=== PATIENT | female | born 1960 | race Caucasian/White ===

== ENCOUNTER → 2018-02-11 09:22 | Outpatient (CLI) | payer OTHER, SELFPAY ==
--- NOTE | 2018-02-11 09:46 | DI.MG.S_ITS ---
Patient Name: REJI MADDOX date: 1960 Sex: F Attending Physician: Malik Indications: Date: 02/11/2018 09:41 At the request of: CONNOR GUILLAUME Procedure: MM screening mammo BI BILATERAL DIGITAL SCREENING MAMMOGRAM 3D/2D WITH CAD: 02/11/2018 CLINICAL: Routine screening. Comparison is made to exams dated: 02/04/2017 mammogram, 12/20/2015 mammogram, and 12/05/2014 mammogram - [facility]. The tissue of both breasts is heterogeneously dense. This may lower the sensitivity of mammography. Current study was also evaluated with a Computer Aided Detection (CAD) system. No significant masses, calcifications, or other findings are seen in either breast. There has been no significant interval change. IMPRESSION: NEGATIVE There is no mammographic evidence of malignancy. A 1 year screening mammogram is recommended. This exam was interpreted at Station ID: [id number]. NOTE: For mammograms, a report in lay terms will be sent to the patient. Approximately 15% of breast malignancies will not be visualized mammographically. In the management of a palpable breast mass, a negative mammogram must not discourage biopsy of a clinically suspicious lesion. Electronically Signed By: Sam camara/jannette:02/11/2018 21:06:15 letter sent: Normal Exam ACR BI-RADS Category 1: Negative [id number]
== END ==
PROVIDERS: PCP Family Medicine; Visit Provider Family Medicine
DX: Z12.31 Encounter for screening mammogram for malignant neoplasm of breast (principal)
CPT/HCPCS: 77063; 77067

== ENCOUNTER → 2018-07-15 09:22 | Outpatient (CLI) | payer OTHER, SELFPAY ==
--- NOTE | 2018-07-15 09:23 | DI.RAD.S_ITS ---
PROCEDURE: XR SHOULDER RT MIN 2V INDICATIONS: RIGHT SHOULDER PAIN TECHNIQUE: 3 views of the shoulder were acquired. COMPARISON: None. FINDINGS: Bones: Mild to moderate right shoulder joint osteoarthritis and glenohumeral joint osteoarthritis is seen. No fractures or dislocations. No suspicious bony lesions. Visualized ribs appear intact. Soft tissues: No suspicious soft tissue calcifications. IMPRESSION: Mild to moderate right shoulder joint osteoarthritis. No fracture or dislocation. Dictated by: Vincent Christopher M.D. on 07/15/2018 at 10:31 Approved by: Vincent Christopher M.D. on 07/15/2018 at 10:33
== END ==
PROVIDERS: PCP Family Medicine; Visit Provider Family Medicine
DX: M25.511 Pain in right shoulder (principal); M19.011 Primary osteoarthritis, right shoulder
CPT/HCPCS: 73030

== ENCOUNTER → 2018-09-17 09:26 | Outpatient (CLI) | payer OTHER, SELFPAY ==
[2018-09-17 09:48] LABS: Add Manual Diff / Slide Review NO; Basophils Absolute Auto 0 /uL (0-100); Basophils Percent Auto 0.7 % (0-2); Eosinophils Absolute Auto 200 /uL (0-450); Eosinophils Percent Auto 3.3 % (2-4); Hematocrit 44.6 % (36-46); Hemoglobin 14.8 g/dL (12.0-16.0); Lymphocytes Absolute Auto 1600 /uL (1100-4500); Lymphocytes Percent Auto 29.7 % (25-40); Mean Corpuscular HGB Conc 33.1 % (30-36); Mean Corpuscular Volume 93.5 fL (80-100); Monocytes Absolute Auto 400 /uL (0-900); Monocytes Percent Auto 7.4 % (3-14); Neutrophils Absolute Auto 3200 /uL (1500-7000); Neutrophils Percent Auto 58.9 % (50-75); Platelet Count 178 X10^3/uL (150-400); Red Blood Cell Count 4.77 X10^6/uL (4.0-5.2); Red Cell Distribution Width 13.2 % (11.6-14.8); White Blood Cell Count 5.4 X10^3/uL (4.5-11.0)
[2018-09-17 10:14] LABS: Alanine Aminotransferase 37 IU/L (9-52); Albumin 4.2 g/dL (3.5-5.0); Albumin Globulin Ratio 1.5 (1.0-2.8); Alkaline Phosphatase 46 U/L (38-126); Aspartate Aminotransferase 25 IU/L (14-36); BUN Creatinine Ratio 26.3 (6-22); Bilirubin Total 0.8 mg/dL (0.2-1.3); Blood Urea Nitrogen 21 mg/dL (7-17); Carbon Dioxide 31 mmol/L (22-32); Chloride 103 mmol/L (98-107); Cholesterol 144 mg/dL (140-199); Estimated Glomerular Filt Rate > 60.0 mL/min (>60); Globulin 2.8 g/dL (1.7-4.1); Glucose 88 mg/dL (70-100); HDL Cholesterol 41 mg/dL (40-60); HEMOLYSIS < 15 (0-50); LDL Cholesterol Calculated 87 mg/dL (<100); Potassium 4.2 mmol/L (3.4-5.1); Sodium 141 mmol/L (137-145); Triglycerides 82 mg/dL (35-150)
[2018-09-17 10:45] LABS: Thyroid Stimulating Hormone 2.32 uIU/mL (0.47-4.68)
== END ==
PROVIDERS: PCP Family Medicine; Visit Provider Family Medicine
DX: E78.49 Other hyperlipidemia (principal); R89.9 Unspecified abnormal finding in specimens from other organs, systems and tissues; Z13.0 Encounter for screening for diseases of the blood and blood-forming organs and certain disorders involving the immune mechanism; Z13.29 Encounter for screening for other suspected endocrine disorder
CPT/HCPCS: 36415; 80053; 80061; 84443; 85025

== ENCOUNTER 2018-11-17 09:00 | Outpatient (RCR) | payer OTHER, SELFPAY ==
--- NOTE | 2018-06-30 16:51 | PT.OIE ---
Current Diagnoses Other enthesopathies, not elsewhere classified (06/30/18) Past Medical History (Last Updated 06/01/18 @ 14:59 by Marisela Moore) Fibroids (Chronic) Plantar warts (Chronic ~1976) Chicken pox (Resolved) Measles (Resolved) Past Surgical History (Last Updated 06/01/18 @ 14:59 by Marisela Moore) Anesthesia (Resolved) Status post hysterectomy (~2011) Status post laparoscopy (~2009) Provider Visit Care Team Role Provider Type Chris Gan MD Primary Care Provider Physician Specialty: [facility] Address: [address] [place] [address] Email: [email or web address] DENNY Camejo Attending Provider Advanced Pot Puller Specialty: [facility] Address: [address] [place] [address] Email: [email or web address] Physical Therapy Initial Evaluation PT-OP-A Visit Information Start: 06/27/18 17:30 Freq: Status: Active Protocol: Document 06/30/18 15:46 LRN (Rec: 06/30/18 16:51 LRN [id number]) Out-Patient Physical Therapy Visit Information Visit Information Visit Type Initial Evaluation Visit Start Time 09:50 Visit Stop Time 10:40 Total Visit Minutes 50 Visit Number 1 Number of INDOOR LANDSCAPER/GARDENER Visits 0 Evaluation Information Evaluation Date 06/30/18 PT-OP-B Current Condition Start: 06/27/18 17:30 Freq: Status: Active Protocol: Document 06/30/18 15:46 LRN (Rec: 06/30/18 16:51 LRN [id number]) Current Condition History of Current Condition Onset Date 04/29/2018 Current Complaints Tightness>Pain in R posterior upper arm. Treatment Goals Patient/Caregiver Goals Pt goal is to eliminate the pain, regain full motion of the R arm and shoulder. Prior Functional Status Baseline Function- ADL's Independent Baseline Function- Mobility Independent Baseline Function- Recreation/Hobbies Exercises at home with weights and aerobic exercise. Current Functional Impairments (Reported) Functional Limitations- ADL's Difficulty lifting overhead. Difficulty reaching behind the back for dressing and bathing . Functional Limitations- Recreation/ Stopped exercising with Hobbies weights, has continued with aerobic exercise. Personal Factors Other Personal Factors That May Effect None Therapy/Recovery PT-OP-C Subjective Start: 06/27/18 17:30 Freq: Status: Active Protocol: Document 06/30/18 15:46 LRN (Rec: 06/30/18 16:51 LRN [id number]) Patient Questionnaires Quick Dash- Upper Extremity Quick Dash UE Score 26 Quick Dash UE Impairment 20 to 39% Impaired (Score 20- 39) PT-OP-F Manual Assessment Start: 06/27/18 17:30 Freq: Status: Active Protocol: Document 06/30/18 15:46 LRN (Rec: 06/30/18 16:51 LRN [id number]) Manual Assessments Soft Tissue Assessment Soft Tissue Mobility Assessment R posterior brachium: tender with elbow in full extension. Joint Mobility Assessment Joint Mobility Assessment Shoulder and Elbow is normal. PT-OP-H Neuro Start: 06/27/18 17:30 Freq: Status: Active Protocol: Document 06/30/18 15:46 LRN (Rec: 06/30/18 16:51 LRN [id number]) Sensation Evaluation Gross Sensation Gross Sensation WNL Deep Tendon Reflex & Clonus Assessment Deep Tendon Reflex Bilateral Brachioradialis Deep Tendon Reflex 2+ Normal Bilateral Tricep Deep Tendon Reflex 2+ Normal Bilateral Bicep Deep Tendon Reflex 2+ Normal PT-OP-J Posture/Palpation/Skin Start: 06/27/18 17:30 Freq: Status: Active Protocol: Document 06/30/18 15:46 LRN (Rec: 06/30/18 16:51 LRN [id number]) Posture Evaluation Position Standing Scapula Posture (R) Rotated Up Comments Posture Comments Pt R shoulder is lower than L. Palpation Assessment Location Two Palpation Location R Upper Trapezius Palpation Findings Soft Tissue Tightness Muscle Guarding Tenderness One Palpation Location R shoulder & Elbow Palpation Details WNL PT-OP-K Range of Motion Start: 06/27/18 17:30 Freq: Status: Active Protocol: Document 06/30/18 15:46 LRN (Rec: 06/30/18 16:51 LRN [id number]) Cervical Spine Range of Motion Cervical Spine Active Degrees Testing Position Sitting Extension 40 Rotation Left 60 Rotation Right 60 Lateral Flexion Left 17 Lateral Flexion Right 18 ROM Limitations Soft Tissue Tightness Shoulder Goniometric Range of Motion Shoulder Measured in Degrees Left Passive Testing Position Supine Flexion 158 Extension 52 Abduction 100 External Rotation at 90 degrees 90 Abduction External Rotation at 45 degrees 80 Abduction Internal Rotation 80 Internal Rotation Behind Back (text) T3 in sitting Right Passive Testing Position Supine Flexion 120 Extension 30 Abduction 65 External Rotation at 90 degrees 30 Abduction Internal Rotation 50 Right Active Testing Position Sitting Flexion 75 Abduction 60 External Rotation at 0 degrees Abduction 32 Internal Rotation Behind Back (text) R Lateral Hip PT-OP-L Special Tests Start: 06/27/18 17:30 Freq: Status: Active Protocol: Document 06/30/18 15:46 LRN (Rec: 06/30/18 16:51 LRN [id number]) Special Tests Other Special Tests Special Tests Cervical: Cervical Compression and Distraction: Negative. Foraminal Compression: Negative bilaterally. Shoulder: Impingement: Positive on Right with posterior brachium pain. PT-OP-M Strength Start: 06/27/18 17:30 Freq: Status: Active Protocol: Document 06/30/18 15:46 LRN (Rec: 06/30/18 16:51 LRN [id number]) Shoulder Strength Shoulder Manual Muscle Testing Right Comments Generally 2/5 due to pain. Left Reason Not Measured WFL Elbow/Forearm Strength Elbow and Forearm Manual Muscle Testing Right Reason Not Measured WFL Comments Generally 5/5 with shoulder at 90 deg's flexion. PT-OP-Q Treatments Start: 06/27/18 17:30 Freq: Status: Active Protocol: Document 06/30/18 15:46 LRN (Rec: 06/30/18 16:51 LRN [id number]) Self-Care/Home Management Treatment Education Patient Education Home Exercise Program Activities Self-Care/Home Management Activities I/S pt in self Triceps stretch in closed chain with hand supported and increased use of cryotherapy. PT-OP-R Modalities Start: 06/27/18 17:30 Freq: Status: Active Protocol: Document 06/30/18 15:46 LRN (Rec: 06/30/18 16:51 LRN [id number]) Hot Pack/Cold Pack Treatment Cold Pack Location R Triceps Patient Position Hooklying Treatment Duration (minutes) 10 Patient Tolerance Good PT-OP-T Assessment and Plan Start: 06/27/18 17:30 Freq: Status: Active Protocol: Document 06/30/18 15:46 LRN (Rec: 06/30/18 16:51 LRN [id number]) Physical Therapy Assessment Rehab Potential Rehabilitation Potential Good Evaluation Complexity Number of Personal Factors/Comorbidities 0 Number of Body Systems Impaired 3 Clinical Presentation at Evaluation Evolving Impairments Impairments Functional Activities Pain ROM Strength Other Impairments ROM and strength impairment is with L shoulder. Goals Three Impairment Decreased R shoulder IR AROM/ PROM due to pain Short Term Goal (STG) Pt will demonstrated functional passive ROM of the R shoulder for reaching behind the back. STG Duration 07/13/18 Intermediate Goal (LTG) Pt will be able to put on her belt and tuck her shirt in the back without pain. LTG Duration 08/27/17 Two Impairment Decreased R active shoulder mobility due to R posterior brachium pain. Intermediate Goal (LTG) Pt will be able to reach overhead with mild discomfort to return to a light exercise home program. One Impairment Lacks appropriate self care HEP. Intermediate Goal (LTG) Pt will be independent in a HEP. LTG Duration 08/27/17 Assessment Summary Assessment Pt presents with odd symptoms of R posterior, upper arm discomfort/pain that is only reproduced with shoulder flexion, or with elbow ext while hand is in pronation. Further testing would be recommended (MRI with contrast ) if pt fails to respond to physical therapy treatments. She presents with R triceps pain/stiffness/tightness and limited functional ability for reaching overhead and behind the back. R Shoulder movement appears to elicit posterior brachial pain. She does not have pain with resisted elbow extension or flexion. She has mobility limitations consistent with R shoulder impingement, but pain is not in the typical location (no shoulder pain). Her neck has been cleared of involvement, although UE neural tension needs to be assessed. Further assessment of scapular dysfunction possibly effecting shoulder mobility and therefore R arm pain. Physical Therapy Plan Frequency and Duration Frequency of Treatment 2x/Week Plan of Care Start Date 06/30/18 Plan of Care End Date 09/01/18 Therapeutic Interventions Therapeutic Interventions Home Exercise Program Manual Therapy Patient/Caregiver Education Self-Care/Home Management Soft Tissue Mobilization Taping Therapeutic Exercises Modalities Cold Pack/Ice Massage Hot Packs Next Visit Focus/Plan Next Note Type Treatment Note Next Visit Plan Assess R Scapulohumeral rhythm and scapula mobility, ACJ, tuning fork check of brachium long bone. STM/MFR to triceps at attachment onto brachium, Stretch into shoulder flex and elbow ext with forearm pronation & scapular stabilization. Hold modalities other than cryotherapy and MH until determination if further testing is needed to identify source of pain complaints if physical therapy treatments are not helpful.
--- NOTE | 2018-06-30 16:52 | PT.OPPOC ---
Current Diagnoses Other enthesopathies, not elsewhere classified (06/30/18) Provider Visit Care Team Role Provider Type Chris Gan MD Primary Care Provider Physician Specialty: [facility] Practice Address: [address] [place] [address], [id number] Email: [email or web address] DENNY Camejo Attending Provider Advanced Observer Gravity Prospecting Specialty: [facility] Practice Address: [address] [place] [address], [id number] Email: [email or web address] Plan Of Care PT-OP-T Assessment and Plan Start: 06/27/18 17:30 Freq: Status: Active Protocol: Document 06/30/18 15:46 LRN (Rec: 06/30/18 16:51 LRN [id number]) Physical Therapy Assessment Rehab Potential Rehabilitation Potential Good Evaluation Complexity Number of Personal Factors/Comorbidities 0 Number of Body Systems Impaired 3 Clinical Presentation at Evaluation Evolving Impairments Impairments Functional Activities Pain ROM Strength Other Impairments ROM and strength impairment is with L shoulder. Goals Three Impairment Decreased R shoulder IR AROM/ PROM due to pain Short Term Goal (STG) Pt will demonstrated functional passive ROM of the R shoulder for reaching behind the back. STG Duration 07/13/18 Intermediate Goal (LTG) Pt will be able to put on her belt and tuck her shirt in the back without pain. LTG Duration 08/27/17 Two Impairment Decreased R active shoulder mobility due to R posterior brachium pain. Conference Services Coordinator Goal (LTG) Pt will be able to reach overhead with mild discomfort to return to a light exercise home program. One Impairment Lacks appropriate self care HEP. Conference Services Coordinator Goal (LTG) Pt will be independent in a HEP. LTG Duration 08/27/17 Assessment Summary Assessment Pt presents with odd symptoms of R posterior, upper arm discomfort/pain that is only reproduced with shoulder flexion, or with elbow ext while hand is in pronation. Further testing would be recommended (MRI with contrast ) if pt fails to respond to physical therapy treatments. She presents with R triceps pain/stiffness/tightness and limited functional ability for reaching overhead and behind the back. R Shoulder movement appears to elicit posterior brachial pain. She does not have pain with resisted elbow extension or flexion. She has mobility limitations consistent with R shoulder impingement, but pain is not in the typical location (no shoulder pain). Her neck has been cleared of involvement, although UE neural tension needs to be assessed. Further assessment of scapular dysfunction possibly effecting shoulder mobility and therefore R arm pain. Physical Therapy Plan Frequency and Duration Frequency of Treatment 2x/Week Plan of Care Start Date 06/30/18 Plan of Care End Date 09/01/18 Therapeutic Interventions Therapeutic Interventions Home Exercise Program Manual Therapy Patient/Caregiver Education Self-Care/Home Management Soft Tissue Mobilization Taping Therapeutic Exercises Modalities Cold Pack/Ice Massage Hot Packs Next Visit Focus/Plan Next Note Type Treatment Note Next Visit Plan Assess R Scapulohumeral rhythm and scapula mobility, ACJ, tuning fork check of brachium long bone. STM/MFR to triceps at attachment onto brachium, Stretch into shoulder flex and elbow ext with forearm pronation & scapular stabilization. Hold modalities other than cryotherapy and MH until determination if further testing is needed to identify source of pain complaints if physical therapy treatments are not helpful. Plan of Care Dates Plan of Care Start Date 06/30/18 Plan of Care End Date 09/01/18 Please Sign and Return: I have reviewed this Plan of Care and certify that the skilled therapy services above are required to meet the patient?s needs. Physician Signature Date Printed Name and Credentials Clinical Instructor Signature Printed Name and Credentials
--- NOTE | 2018-07-03 14:04 | PT.OTN ---
Current Diagnoses Other enthesopathies, not elsewhere classified (07/03/18) Physical Therapy Treatment Note PT-OP-A Visit Information Start: 06/27/18 17:30 Freq: Status: Active Protocol: Document 07/03/18 09:48 LRN (Rec: 07/03/18 10:32 LRN [id number]) Out-Patient Physical Therapy Visit Information Visit Information Visit Type Treatment Note Visit Start Time 09:48 Visit Stop Time 10:32 Total Visit Minutes 54 Visit Number 2 Number of SECURITY SERVICES SPECIALIST Visits 0 Evaluation Information Evaluation Date 06/30/18 PT-OP-B Current Condition Start: 06/27/18 17:30 Freq: Status: Active Protocol: Document 06/30/18 15:46 LRN (Rec: 06/30/18 16:51 LRN [id number]) Current Condition History of Current Condition Onset Date 04/29/2018 Current Complaints Tightness>Pain in R posterior upper arm. Treatment Goals Patient/Caregiver Goals Pt goal is to eliminate the pain, regain full motion of the R arm and shoulder. Prior Functional Status Baseline Function- ADL's Independent Baseline Function- Mobility Independent Baseline Function- Recreation/Hobbies Exercises at home with weights and aerobic exercise. Current Functional Impairments (Reported) Functional Limitations- ADL's Difficulty lifting overhead. Difficulty reaching behind the back for dressing and bathing . Functional Limitations- Recreation/ Stopped exercising with Hobbies weights, has continued with aerobic exercise. Personal Factors Other Personal Factors That May Effect None Therapy/Recovery PT-OP-C Subjective Start: 06/27/18 17:30 Freq: Status: Active Protocol: Document 06/30/18 15:46 LRN (Rec: 06/30/18 16:51 LRN [id number]) Patient Questionnaires Quick Dash- Upper Extremity Quick Dash UE Score 26 Quick Dash UE Impairment 20 to 39% Impaired (Score 20- 39) PT-OP-F Manual Assessment Start: 06/27/18 17:30 Freq: Status: Active Protocol: Document 06/30/18 15:46 LRN (Rec: 06/30/18 16:51 LRN [id number]) Manual Assessments Soft Tissue Assessment Soft Tissue Mobility Assessment R posterior brachium: tender with elbow in full extension. Joint Mobility Assessment Joint Mobility Assessment Shoulder and Elbow is normal. PT-OP-H Neuro Start: 06/27/18 17:30 Freq: Status: Active Protocol: Document 06/30/18 15:46 LRN (Rec: 06/30/18 16:51 LRN [id number]) Sensation Evaluation Gross Sensation Gross Sensation WNL Deep Tendon Reflex & Clonus Assessment Deep Tendon Reflex Bilateral Brachioradialis Deep Tendon Reflex 2+ Normal Bilateral Tricep Deep Tendon Reflex 2+ Normal Bilateral Bicep Deep Tendon Reflex 2+ Normal PT-OP-J Posture/Palpation/Skin Start: 06/27/18 17:30 Freq: Status: Active Protocol: Document 06/30/18 15:46 LRN (Rec: 06/30/18 16:51 LRN [id number]) Posture Evaluation Position Standing Scapula Posture (R) Rotated Up Comments Posture Comments Pt R shoulder is lower than L. Palpation Assessment Location Two Palpation Location R Upper Trapezius Palpation Findings Soft Tissue Tightness Muscle Guarding Tenderness One Palpation Location R shoulder & Elbow Palpation Details WNL PT-OP-K Range of Motion Start: 06/27/18 17:30 Freq: Status: Active Protocol: Document 06/30/18 15:46 LRN (Rec: 06/30/18 16:51 LRN [id number]) Cervical Spine Range of Motion Cervical Spine Active Degrees Testing Position Sitting Extension 40 Rotation Left 60 Rotation Right 60 Lateral Flexion Left 17 Lateral Flexion Right 18 ROM Limitations Soft Tissue Tightness Shoulder Goniometric Range of Motion Shoulder Measured in Degrees Left Passive Testing Position Supine Flexion 158 Extension 52 Abduction 100 External Rotation at 90 degrees 90 Abduction External Rotation at 45 degrees 80 Abduction Internal Rotation 80 Internal Rotation Behind Back (text) T3 in sitting Right Passive Testing Position Supine Flexion 120 Extension 30 Abduction 65 External Rotation at 90 degrees 30 Abduction Internal Rotation 50 Right Active Testing Position Sitting Flexion 75 Abduction 60 External Rotation at 0 degrees Abduction 32 Internal Rotation Behind Back (text) R Lateral Hip PT-OP-L Special Tests Start: 06/27/18 17:30 Freq: Status: Active Protocol: Document 06/30/18 15:46 LRN (Rec: 06/30/18 16:51 LRN [id number]) Special Tests Other Special Tests Special Tests Cervical: Cervical Compression and Distraction: Negative. Foraminal Compression: Negative bilaterally. Shoulder: Impingement: Positive on Right with posterior brachium pain. PT-OP-M Strength Start: 06/27/18 17:30 Freq: Status: Active Protocol: Document 06/30/18 15:46 LRN (Rec: 06/30/18 16:51 LRN [id number]) Shoulder Strength Shoulder Manual Muscle Testing Right Comments Generally 2/5 due to pain. Left Reason Not Measured WFL Elbow/Forearm Strength Elbow and Forearm Manual Muscle Testing Right Reason Not Measured WFL Comments Generally 5/5 with shoulder at 90 deg's flexion. PT-OP-Q Treatments Start: 06/27/18 17:30 Freq: Status: Active Protocol: Document 07/03/18 09:48 LRN (Rec: 07/03/18 10:32 LRN [id number]) Therapeutic Exercises Supine Exercises UE neural glide Supine Exercise Name R arm Ulnar & Median nerve [place] Side right Reps/Minutes 8' Comments Extra time taken for training. Anterior pressure to R Humeral Head Standing Exercises Shoulder drop Standing Exercise Name Lat Dorsi/Lower Trap strengthening Side bilateral Resistance Manual Reps/Minutes 7' Median N. [place] Standing Exercise Name Median n. glide Side right Reps/Minutes 5' Comments Extra time taken for training. Manual Therapy Treatment Soft Tissue Mobilization STM Body Location R Biceps and Triceps attachment at Brachium Mobilization Type Cross-Friction Strumming Sustained Pressure Intensity/Depth Moderate Body Position Supine Comments Tenderness present Joint Mobilizations R UE Joint GHJ Direction Inferior, Posterior Grade I Body Position Supine Reps/Duration 3' PT-OP-R Modalities Start: 06/27/18 17:30 Freq: Status: Active Protocol: Document 07/03/18 09:48 LRN (Rec: 07/03/18 10:32 LRN [id number]) Hot Pack/Cold Pack Treatment Hot Pack Location Neck & R arm Patient Position Supine Treatment Duration (minutes) 10 Patient Tolerance Good PT-OP-T Assessment and Plan Start: 06/27/18 17:30 Freq: Status: Active Protocol: Document 07/03/18 09:48 LRN (Rec: 07/03/18 10:32 LRN [id number]) Physical Therapy Assessment Assessment Summary Assessment + for Ulnar and Median nerve tension. She has RUE neural tension and decreased R GHJ mobility resulting in some symptoms of impingement. She has decreased mobility with GHJ inferior & posterior, mildly with anterior glide. Pt demonstrates poor R scapulohumeral rhythm. Physical Therapy Plan Next Visit Focus/Plan Next Note Type Treatment Note Next Visit Plan Assess R Scapula & ACJ mobility, tuning fork check of brachium long bone. Review HEP (neural stretch and scapular depression). Issue HEP of scapular depression and progress other scapular stab ex's. Stretch into shoulder flex and elbow ext with forearm pronation & scapular stabilization. Hold modalities other than cryotherapy and MH until determination if further testing is needed to identify source of pain complaints if physical therapy treatments are not helpful.
--- NOTE | 2018-07-06 13:20 | PT.OTN ---
Current Diagnoses Other enthesopathies, not elsewhere classified (07/06/18) Physical Therapy Treatment Note PT-OP-A Visit Information Start: 06/27/18 17:30 Freq: Status: Active Protocol: Document 07/06/18 09:53 LRN (Rec: 07/06/18 10:33 LRN [id number]) Out-Patient Physical Therapy Visit Information Visit Information Visit Type Treatment Note Visit Start Time 09:53 Visit Stop Time 10:43 Total Visit Minutes 50 Visit Number 3 Number of LUSTERER Visits 0 Evaluation Information Evaluation Date 06/30/18 PT-OP-B Current Condition Start: 06/27/18 17:30 Freq: Status: Active Protocol: Document 06/30/18 15:46 LRN (Rec: 06/30/18 16:51 LRN [id number]) Current Condition History of Current Condition Onset Date 04/29/2018 Current Complaints Tightness>Pain in R posterior upper arm. Treatment Goals Patient/Caregiver Goals Pt goal is to eliminate the pain, regain full motion of the R arm and shoulder. Prior Functional Status Baseline Function- ADL's Independent Baseline Function- Mobility Independent Baseline Function- Recreation/Hobbies Exercises at home with weights and aerobic exercise. Current Functional Impairments (Reported) Functional Limitations- ADL's Difficulty lifting overhead. Difficulty reaching behind the back for dressing and bathing . Functional Limitations- Recreation/ Stopped exercising with Hobbies weights, has continued with aerobic exercise. Personal Factors Other Personal Factors That May Effect None Therapy/Recovery PT-OP-C Subjective Start: 06/27/18 17:30 Freq: Status: Active Protocol: Document 07/06/18 09:53 LRN (Rec: 07/06/18 10:33 LRN [id number]) OP-PT Subjective Patient Comments Patient Comments States last treatment was helpful. Not as painful after treatement. PT-OP-F Manual Assessment Start: 06/27/18 17:30 Freq: Status: Active Protocol: Document 06/30/18 15:46 LRN (Rec: 06/30/18 16:51 LRN [id number]) Manual Assessments Soft Tissue Assessment Soft Tissue Mobility Assessment R posterior brachium: tender with elbow in full extension. Joint Mobility Assessment Joint Mobility Assessment Shoulder and Elbow is normal. PT-OP-H Neuro Start: 06/27/18 17:30 Freq: Status: Active Protocol: Document 06/30/18 15:46 LRN (Rec: 06/30/18 16:51 LRN [id number]) Sensation Evaluation Gross Sensation Gross Sensation WNL Deep Tendon Reflex & Clonus Assessment Deep Tendon Reflex Bilateral Brachioradialis Deep Tendon Reflex 2+ Normal Bilateral Tricep Deep Tendon Reflex 2+ Normal Bilateral Bicep Deep Tendon Reflex 2+ Normal PT-OP-J Posture/Palpation/Skin Start: 06/27/18 17:30 Freq: Status: Active Protocol: Document 06/30/18 15:46 LRN (Rec: 06/30/18 16:51 LRN [id number]) Posture Evaluation Position Standing Scapula Posture (R) Rotated Up Comments Posture Comments Pt R shoulder is lower than L. Palpation Assessment Location Two Palpation Location R Upper Trapezius Palpation Findings Soft Tissue Tightness Muscle Guarding Tenderness One Palpation Location R shoulder & Elbow Palpation Details WNL PT-OP-K Range of Motion Start: 06/27/18 17:30 Freq: Status: Active Protocol: Document 06/30/18 15:46 LRN (Rec: 06/30/18 16:51 LRN [id number]) Cervical Spine Range of Motion Cervical Spine Active Degrees Testing Position Sitting Extension 40 Rotation Left 60 Rotation Right 60 Lateral Flexion Left 17 Lateral Flexion Right 18 ROM Limitations Soft Tissue Tightness Shoulder Goniometric Range of Motion Shoulder Measured in Degrees Left Passive Testing Position Supine Flexion 158 Extension 52 Abduction 100 External Rotation at 90 degrees 90 Abduction External Rotation at 45 degrees 80 Abduction Internal Rotation 80 Internal Rotation Behind Back (text) T3 in sitting Right Passive Testing Position Supine Flexion 120 Extension 30 Abduction 65 External Rotation at 90 degrees 30 Abduction Internal Rotation 50 Right Active Testing Position Sitting Flexion 75 Abduction 60 External Rotation at 0 degrees Abduction 32 Internal Rotation Behind Back (text) R Lateral Hip PT-OP-L Special Tests Start: 06/27/18 17:30 Freq: Status: Active Protocol: Document 06/30/18 15:46 LRN (Rec: 06/30/18 16:51 LRN [id number]) Special Tests Other Special Tests Special Tests Cervical: Cervical Compression and Distraction: Negative. Foraminal Compression: Negative bilaterally. Shoulder: Impingement: Positive on Right with posterior brachium pain. PT-OP-M Strength Start: 06/27/18 17:30 Freq: Status: Active Protocol: Document 06/30/18 15:46 LRN (Rec: 06/30/18 16:51 LRN [id number]) Shoulder Strength Shoulder Manual Muscle Testing Right Comments Generally 2/5 due to pain. Left Reason Not Measured WFL Elbow/Forearm Strength Elbow and Forearm Manual Muscle Testing Right Reason Not Measured WFL Comments Generally 5/5 with shoulder at 90 deg's flexion. PT-OP-Q Treatments Start: 06/27/18 17:30 Freq: Status: Active Protocol: Document 07/06/18 09:53 LRN (Rec: 07/06/18 13:18 LRN [id number]) Therapeutic Exercises Supine Exercises UE neural glide Supine Exercise Name R arm Ulnar & Median nerve Powell Side right Reps/Minutes 8' Comments Extra time taken for training. Anterior pressure to R Humeral Head Standing Exercises Shoulder protraction with Rhomboid stretch Standing Exercise Name R Scapular protraction with hands on wall Side bilateral Rhomboid stretch Standing Exercise Name R arm across chest (low position) & Doorway both hands Side right Reps/Minutes 3' Comments Tried self different stretches to get appropriate stretch Median N. Powell Standing Exercise Name Median n. glide Side right Reps/Minutes 3' Comments Extra time taken for training. Manual Therapy Treatment Soft Tissue Mobilization STM Body Location R UT/[place] Posterior Mobilization Type Myofascial Release Strumming Body Position Supine Comments Sidelie for L Scapular depression MFR. Joint Mobilizations Scapula Joint R Scapulae Direction Distraction Body Position Sidelying Reps/Duration 3 R UE Joint GHJ Direction Inferior, Posterior Grade I Body Position Supine Reps/Duration 3' Self-Care/Home Management Treatment Activities Self-Care/Home Management Activities I/S pt in Rhomboid self stretch and scapular protraction. PT-OP-R Modalities Start: 06/27/18 17:30 Freq: Status: Active Protocol: Document 07/06/18 09:53 LRN (Rec: 07/06/18 10:33 LRN [id number]) Hot Pack/Cold Pack Treatment Hot Pack Location Neck & R arm Patient Position Supine Treatment Duration (minutes) 10 Patient Tolerance Good PT-OP-T Assessment and Plan Start: 06/27/18 17:30 Freq: Status: Active Protocol: Document 07/06/18 09:53 LRN (Rec: 07/06/18 10:33 LRN [id number]) Physical Therapy Assessment Assessment Summary Assessment R shoulder joint mobility is improved for inferior glide and improved tolerance to posterior glide. Her ulnar n. mobility is improved, she can hold her arm at 90 deg's AB for nerve stretch using wrist. She has a little less arm pain during UE ulnar n. stretch with traction to neck. Tuning fork was negative for bony involvement. Physical Therapy Plan Frequency and Duration Frequency of Treatment 2x/Week Plan of Care Start Date 06/30/18 Plan of Care End Date 09/01/18 Next Visit Focus/Plan Next Note Type Treatment Note Next Visit Plan Assess R Scapula & ACJ mobility. Review HEP ( scapular depression, Rhomboid stretch). Issue HEP of scapular depression and Rhomboid stretch with hands on wall (for scapular protraction and self R Rhomboid stretch) and progress other scapular stab ex's. Stretch into shoulder flex and elbow ext with forearm pronation & scapular stabilization. Hold modalities other than cryotherapy and MH until determination if further testing is needed to identify source of pain complaints if physical therapy treatments are not helpful.
--- NOTE | 2018-07-14 15:11 | PT.OTN ---
Current Diagnoses Other enthesopathies, not elsewhere classified (07/14/18) Physical Therapy Treatment Note PT-OP-A Visit Information Start: 06/27/18 17:30 Freq: Status: Active Protocol: Document 07/14/18 09:48 LRN (Rec: 07/14/18 10:35 LRN [id number]) Out-Patient Physical Therapy Visit Information Visit Information Visit Type Treatment Note Visit Start Time 09:48 Visit Stop Time 10:34 Total Visit Minutes 46 Visit Number 5 Number of USED CAR [employer] ATTENDANT Visits 0 Evaluation Information Evaluation Date 06/30/18 PT-OP-B Current Condition Start: 06/27/18 17:30 Freq: Status: Active Protocol: Document 06/30/18 15:46 LRN (Rec: 06/30/18 16:51 LRN [id number]) Current Condition History of Current Condition Onset Date 04/29/2018 Current Complaints Tightness>Pain in R posterior upper arm. Treatment Goals Patient/Caregiver Goals Pt goal is to eliminate the pain, regain full motion of the R arm and shoulder. Prior Functional Status Baseline Function- ADL's Independent Baseline Function- Mobility Independent Baseline Function- Recreation/Hobbies Exercises at home with weights and aerobic exercise. Current Functional Impairments (Reported) Functional Limitations- ADL's Difficulty lifting overhead. Difficulty reaching behind the back for dressing and bathing . Functional Limitations- Recreation/ Stopped exercising with Hobbies weights, has continued with aerobic exercise. Personal Factors Other Personal Factors That May Effect None Therapy/Recovery PT-OP-C Subjective Start: 06/27/18 17:30 Freq: Status: Active Protocol: Document 07/14/18 09:48 LRN (Rec: 07/14/18 10:35 LRN [id number]) OP-PT Subjective Patient Comments Patient Comments Since last visit, more aching in posterior back arm where the pain was originally. Pain is 5/10 at worst, now 3/10, pain is constant. After ex's it flares it up and doesn't calm down. Has been using heat. She can now reach across the buttock to the other side, and can lift higher than could. New pressure areas of discomfort are in the lateral R brachium and upper shoulder. Hasn't done anything different than usual. PT-OP-F Manual Assessment Start: 06/27/18 17:30 Freq: Status: Active Protocol: Document 07/09/18 09:47 LRN (Rec: 07/09/18 10:35 LRN [id number]) Manual Assessments Soft Tissue Assessment Soft Tissue Mobility Assessment No tenderness in R posterior brachium or biceps in full extension. Joint Mobility Assessment Joint Mobility Assessment Shoulder PT-OP-H Neuro Start: 06/27/18 17:30 Freq: Status: Active Protocol: Document 06/30/18 15:46 LRN (Rec: 06/30/18 16:51 LRN [id number]) Sensation Evaluation Gross Sensation Gross Sensation WNL Deep Tendon Reflex & Clonus Assessment Deep Tendon Reflex Bilateral Brachioradialis Deep Tendon Reflex 2+ Normal Bilateral Tricep Deep Tendon Reflex 2+ Normal Bilateral Bicep Deep Tendon Reflex 2+ Normal PT-OP-J Posture/Palpation/Skin Start: 06/27/18 17:30 Freq: Status: Active Protocol: Document 07/09/18 09:47 LRN (Rec: 07/09/18 10:35 LRN [id number]) Palpation Assessment Location Two Palpation Location R Upper Trapezius Palpation Findings Soft Tissue Tightness Muscle Guarding Tenderness PT-OP-K Range of Motion Start: 06/27/18 17:30 Freq: Status: Active Protocol: Document 07/14/18 09:48 LRN (Rec: 07/14/18 14:57 LRN [id number]) Shoulder Goniometric Range of Motion Shoulder Measured in Degrees Right Passive Testing Position Supine Flexion 112 Right Active Internal Rotation Behind Back (text) Inferior to Sacrum PT-OP-L Special Tests Start: 06/27/18 17:30 Freq: Status: Active Protocol: Document 06/30/18 15:46 LRN (Rec: 06/30/18 16:51 LRN [id number]) Special Tests Other Special Tests Special Tests Cervical: Cervical Compression and Distraction: Negative. Foraminal Compression: Negative bilaterally. Shoulder: Impingement: Positive on Right with posterior brachium pain. PT-OP-M Strength Start: 06/27/18 17:30 Freq: Status: Active Protocol: Document 06/30/18 15:46 LRN (Rec: 06/30/18 16:51 LRN [id number]) Shoulder Strength Shoulder Manual Muscle Testing Right Comments Generally 2/5 due to pain. Left Reason Not Measured WFL Elbow/Forearm Strength Elbow and Forearm Manual Muscle Testing Right Reason Not Measured WFL Comments Generally 5/5 with shoulder at 90 deg's flexion. PT-OP-Q Treatments Start: 06/27/18 17:30 Freq: Status: Active Protocol: Document 07/14/18 09:48 LRN (Rec: 07/14/18 14:55 LRN [id number]) Therapeutic Exercises Supine Exercises Shoulder Flex Supine Exercise Name Stretch with approximation into GHJ Side right Reps/Minutes 5' Comments Improved tolerance with less pain when approximation given. UE neural glide Supine Exercise Name R arm Ulnar & Median nerve [place] Side right Reps/Minutes 4' Sidelying Exercises Sleeper stretch Side right Reps/Minutes 3' Comments Arm at 45 & 90 deg's Standing Exercises Rhomboid stretch Standing Exercise Name R arm across chest Side right Reps/Minutes 2' Manual Therapy Treatment Soft Tissue Mobilization R UT Body Location R UT, Scalenes, Pec [place], Supraspinatus Mobilization Type Myofascial Release Sustained Pressure Trigger Point Release STM Body Location R Biceps and Triceps Mobilization Type Strumming Body Position Supine Joint Mobilizations R UE Joint GHJ Direction Inferior, Posterior Grade II Body Position Supine Reps/Duration 5' Comments Checked R ACJ: Normal mobility . PT-OP-R Modalities Start: 06/27/18 17:30 Freq: Status: Active Protocol: Document 07/14/18 09:48 LRN (Rec: 07/14/18 14:55 LRN [id number]) Hot Pack/Cold Pack Treatment Cold Pack Location R Shoulder Patient Position Hooklying Treatment Duration (minutes) 10 Patient Tolerance Good PT-OP-T Assessment and Plan Start: 06/27/18 17:30 Freq: Status: Active Protocol: Document 07/14/18 09:48 LRN (Rec: 07/14/18 14:55 LRN [id number]) Physical Therapy Assessment Goals Three Impairment Decreased R shoulder IR AROM/ PROM due to pain Short Term Goal (STG) Pt will demonstrated functional passive ROM of the R shoulder for reaching behind the back. STG Duration 07/13/18 [facility] Goal (LTG) Pt will be able to put on her belt and tuck her shirt in the back without pain. LTG Duration 08/27/18 Two Impairment Decreased R active shoulder mobility due to R posterior brachium pain. [facility] Goal (LTG) Pt will be able to reach overhead with mild discomfort to return to a light exercise home program. LTG Duration 08/27/18 One Impairment Lacks appropriate self care HEP. [facility] Goal (LTG) Pt will be independent in a HEP. LTG Duration 08/27/17 Assessment Summary Assessment Held strengthening due to increased R arm and shoulder pain. R ACJ is tender to palpation but no instability or separation of joint noted. Pt is tender at joint to palpation. R shoulder mobility has improved. Pt showing signs of R shoulder impingement and instability at the GHJ. Further testing ( MRI) to assess for soft tissue dysfunction would be recommended. Physical Therapy Plan Frequency and Duration Frequency of Treatment 2x/Week Plan of Care Start Date 06/30/18 Plan of Care End Date 09/01/18 Therapeutic Interventions Therapeutic Interventions Home Exercise Program Manual Therapy Patient/Caregiver Education Self-Care/Home Management Soft Tissue Mobilization Taping Therapeutic Exercises Modalities Cold Pack/Ice Massage Hot Packs Other Referrals/Consults Referrals/Consults Recommended Recommend further testing for R shoulder joint dysfunction and cervical involvement. Next Visit Focus/Plan Next Note Type Treatment Note Next Visit Plan Pt to go back to [facility] for follow up of R posterior brachial pain. Issue and review HEP of scapular depression and Rhomboid stretch with hands on wall ( for scapular protraction and self R Rhomboid stretch) and progress other scapular stab ex's. Stretch into shoulder flex and elbow ext with forearm pronation, & scapular stabilization. Hold modalities other than cryotherapy and MH until determination if further testing is needed to identify source of pain complaints due to poor pain resolution.
--- NOTE | 2018-07-16 17:16 | PT.OTN ---
Current Diagnoses Other enthesopathies, not elsewhere classified (07/16/18) Physical Therapy Treatment Note PT-OP-A Visit Information Start: 06/27/18 17:30 Freq: Status: Active Protocol: Document 07/16/18 09:49 LRN (Rec: 07/16/18 10:38 LRN [id number]) Out-Patient Physical Therapy Visit Information Visit Information Visit Type Treatment Note Visit Start Time 09:49 Visit Stop Time 10:44 Total Visit Minutes 51 Visit Number 6 Number of CONSTRUCTION SECRETARY Visits 0 Evaluation Information Evaluation Date 06/30/18 PT-OP-B Current Condition Start: 06/27/18 17:30 Freq: Status: Active Protocol: Document 06/30/18 15:46 LRN (Rec: 06/30/18 16:51 LRN [id number]) Current Condition History of Current Condition Onset Date 04/29/2018 Current Complaints Tightness>Pain in R posterior upper arm. Treatment Goals Patient/Caregiver Goals Pt goal is to eliminate the pain, regain full motion of the R arm and shoulder. Prior Functional Status Baseline Function- ADL's Independent Baseline Function- Mobility Independent Baseline Function- Recreation/Hobbies Exercises at home with weights and aerobic exercise. Current Functional Impairments (Reported) Functional Limitations- ADL's Difficulty lifting overhead. Difficulty reaching behind the back for dressing and bathing . Functional Limitations- Recreation/ Stopped exercising with Hobbies weights, has continued with aerobic exercise. Personal Factors Other Personal Factors That May Effect None Therapy/Recovery PT-OP-C Subjective Start: 06/27/18 17:30 Freq: Status: Active Protocol: Document 07/16/18 09:49 LRN (Rec: 07/16/18 10:38 LRN [id number]) OP-PT Subjective Patient Comments Patient Comments Saw Dr. Gan, had X-ray. 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 No further follow up visits given. PT-OP-F Manual Assessment Start: 06/27/18 17:30 Freq: Status: Active Protocol: Document 07/09/18 09:47 LRN (Rec: 07/09/18 10:35 LRN [id number]) Manual Assessments Soft Tissue Assessment Soft Tissue Mobility Assessment No tenderness in R posterior brachium or biceps in full extension. Joint Mobility Assessment Joint Mobility Assessment Shoulder PT-OP-H Neuro Start: 12/01/18 17:30 Freq: Status: Active Protocol: Document 06/30/18 15:46 LRN (Rec: 06/30/18 16:51 LRN [id number]) Sensation Evaluation Gross Sensation Gross Sensation WNL Deep Tendon Reflex & Clonus Assessment Deep Tendon Reflex Bilateral Brachioradialis Deep Tendon Reflex 2+ Normal Bilateral Tricep Deep Tendon Reflex 2+ Normal Bilateral Bicep Deep Tendon Reflex 2+ Normal PT-OP-J Posture/Palpation/Skin Start: 06/27/18 17:30 Freq: Status: Active Protocol: Document 07/09/18 09:47 LRN (Rec: 07/09/18 10:35 LRN [id number]) Palpation Assessment Location Two Palpation Location R Upper Trapezius Palpation Findings Soft Tissue Tightness Muscle Guarding Tenderness PT-OP-K Range of Motion Start: 06/27/18 17:30 Freq: Status: Active Protocol: Document 07/14/18 09:48 LRN (Rec: 07/14/18 14:57 LRN [id number]) Shoulder Goniometric Range of Motion Shoulder Measured in Degrees Right Passive Testing Position Supine Flexion 112 Right Active Internal Rotation Behind Back (text) Inferior to Sacrum PT-OP-L Special Tests Start: 06/27/18 17:30 Freq: Status: Active Protocol: Document 06/30/18 15:46 LRN (Rec: 06/30/18 16:51 LRN [id number]) Special Tests Other Special Tests Special Tests Cervical: Cervical Compression and Distraction: Negative. Foraminal Compression: Negative bilaterally. Shoulder: Impingement: Positive on Right with posterior brachium pain. PT-OP-M Strength Start: 06/27/18 17:30 Freq: Status: Active Protocol: Document 06/30/18 15:46 LRN (Rec: 06/30/18 16:51 LRN [id number]) Shoulder Strength Shoulder Manual Muscle Testing Right Comments Generally 2/5 due to pain. Left Reason Not Measured WFL Elbow/Forearm Strength Elbow and Forearm Manual Muscle Testing Right Reason Not Measured WFL Comments Generally 5/5 with shoulder at 90 deg's flexion. PT-OP-Q Treatments Start: 06/27/18 17:30 Freq: Status: Active Protocol: Document 07/16/18 09:49 LRN (Rec: 07/16/18 10:38 LRN [id number]) Cardio Equipment Upper Body Ergometer (UBE) Duration (Minutes) 9 Seat Position 14 Height 4 Therapeutic Exercises Supine Exercises Windshield wipe Side right Reps/Minutes 15 x 2 Shoulder Flex Supine Exercise Name Stretch with approximation into GHJ Side right Reps/Minutes 5' Comments Improved tolerance with less pain when approximation given. UE neural glide Supine Exercise Name R arm Ulnar & Median nerve [place] Side right Reps/Minutes 4' Comments Tight feeling at Deltoid insertion at Humerus Sidelying Exercises Sleeper stretch Side right Reps/Minutes 3' Comments Arm at 45 & 90 deg's Manual Therapy Treatment Soft Tissue Mobilization R UT Body Location R UT, Scalenes, Pec Minor, Supraspinatus Mobilization Type Myofascial Release Sustained Pressure Trigger Point Release Joint Mobilizations R UE Joint GHJ Direction Inferior, Posterior Grade II Body Position Supine Reps/Duration 8' Self-Care/Home Management Treatment Education Patient Education Home Exercise Program Activities Self-Care/Home Management Activities Issued and Reviewed HEP: Scalene stretch and shoulder strengthening in prone (Ext, AB, ER/IR). PT-OP-R Modalities Start: 06/27/18 17:30 Freq: Status: Active Protocol: Document 07/16/18 09:49 LRN (Rec: 07/16/18 16:54 LRN [id number]) Hot Pack/Cold Pack Treatment Cold Pack Location R Shoulder Patient Position Hooklying Treatment Duration (minutes) 10 Patient Tolerance Good PT-OP-T Assessment and Plan Start: 06/27/18 17:30 Freq: Status: Active Protocol: Document 07/16/18 09:49 LRN (Rec: 07/16/18 10:38 LRN [id number]) Physical Therapy Assessment Rehab Potential Rehabilitation Potential Good Impairments Impairments Functional Activities Pain ROM Strength Other Impairments ROM and strength impairment is with L shoulder. Goals Three Impairment Decreased R shoulder IR AROM/ PROM due to pain Short Term Goal (STG) Pt will demonstrated functional passive ROM of the R shoulder for reaching behind the back. STG Duration 07/13/18 Hearing Aid Repair Technician Goal (LTG) Pt will be able to put on her belt and tuck her shirt in the back without pain. LTG Duration 08/27/18 Two Impairment Decreased R active shoulder mobility due to R posterior brachium pain. Hearing Aid Repair Technician Goal (LTG) Pt will be able to reach overhead with mild discomfort to return to a light exercise home program. LTG Duration 08/27/18 One Impairment Lacks appropriate self care HEP. Hearing Aid Repair Technician Goal (LTG) Pt will be independent in a HEP. LTG Duration 08/27/17 Progress Towards Goals Progress Comments Can put the belt on, but it is really hard/stiff. Can reach up to middle shelf of kitchen cabinets to get things down. Assessment Summary Assessment The pt's R shoulder mobility has improved, but she has signs of R shoulder impingement (?Supraspinatus dysfunction) and instability at the J. Her pain symptoms are not always typical for shoulder involvement, but manual cervical compression and traction tests clear her for cervical involvement. She has UE neural tension; therefore she may have cervical scaleni tightness also referring pain to her posterior upper arm. Scapular dysfunction also may be possibly effecting shoulder mobility and therefore R arm pain. Her R ACJ doesn't appear to be involved. Further testing (MRI) to assess for soft tissue dysfunction of the R shoulder will help to determine if there could be Scaleni involvement of the neck or possibly an insidious nature to her pain. Physical Therapy Plan Frequency and Duration Frequency of Treatment 2x/Week Plan of Care Start Date 06/30/18 Plan of Care End Date 09/01/18 Therapeutic Interventions Therapeutic Interventions Home Exercise Program Manual Therapy Patient/Caregiver Education Self-Care/Home Management Soft Tissue Mobilization Taping Therapeutic Exercises Modalities Cold Pack/Ice Massage Hot Packs Other Referrals/Consults Referrals/Consults Recommended Recommend further testing for R shoulder joint dysfunction and possibly cervical involvement. Next Visit Focus/Plan Next Note Type Treatment Note Next Visit Plan Review previous HEP issued ( Scalene stretch and prone shoulder strengthening). Issue and review HEP of scapular depression and Rhomboid stretch with hands on wall (for scapular protraction and self R Rhomboid stretch) and progress other scapular stab ex's. Stretch into shoulder flex and elbow ext with forearm pronation, & scapular stabilization. Hold modalities other than cryotherapy and MH until determination if further testing is needed to identify source of pain complaints due to poor pain resolution.
--- NOTE | 2018-07-16 17:20 | PT.OPPN ---
Current Diagnoses Other enthesopathies, not elsewhere classified (07/16/18) Physical Therapy Progress Note PT-OP-A Visit Information Start: 06/27/18 17:30 Freq: Status: Active Protocol: Document 07/16/18 09:49 LRN (Rec: 07/16/18 10:38 LRN [id number]) Out-Patient Physical Therapy Visit Information Visit Information Visit Type Treatment Note Visit Start Time 09:49 Visit Stop Time 10:44 Total Visit Minutes 51 Visit Number 6 Number of ADULT BASIC EDUCATION INSTRUCTOR Visits 0 Evaluation Information Evaluation Date 06/30/18 PT-OP-B Current Condition Start: 06/27/18 17:30 Freq: Status: Active Protocol: Document 06/30/18 15:46 LRN (Rec: 06/30/18 16:51 LRN [id number]) Current Condition History of Current Condition Onset Date 04/29/2018 Current Complaints Tightness>Pain in R posterior upper arm. Treatment Goals Patient/Caregiver Goals Pt goal is to eliminate the pain, regain full motion of the R arm and shoulder. Prior Functional Status Baseline Function- ADL's Independent Baseline Function- Mobility Independent Baseline Function- Recreation/Hobbies Exercises at home with weights and aerobic exercise. Current Functional Impairments (Reported) Functional Limitations- ADL's Difficulty lifting overhead. Difficulty reaching behind the back for dressing and bathing . Functional Limitations- Recreation/ Stopped exercising with Hobbies weights, has continued with aerobic exercise. Personal Factors Other Personal Factors That May Effect None Therapy/Recovery PT-OP-C Subjective Start: 06/27/18 17:30 Freq: Status: Active Protocol: Document 07/16/18 09:49 LRN (Rec: 07/16/18 10:38 LRN [id number]) OP-PT Subjective Patient Comments Patient Comments Saw Dr. Gan, had X-ray. 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 No further follow up visits given. PT-OP-F Manual Assessment Start: 06/27/18 17:30 Freq: Status: Active Protocol: Document 07/09/18 09:47 LRN (Rec: 07/09/18 10:35 LRN [id number]) Manual Assessments Soft Tissue Assessment Soft Tissue Mobility Assessment No tenderness in R posterior brachium or biceps in full extension. Joint Mobility Assessment Joint Mobility Assessment Shoulder PT-OP-H Neuro Start: 12/01/18 17:30 Freq: Status: Active Protocol: Document 06/30/18 15:46 LRN (Rec: 06/30/18 16:51 LRN [id number]) Sensation Evaluation Gross Sensation Gross Sensation WNL Deep Tendon Reflex & Clonus Assessment Deep Tendon Reflex Bilateral Brachioradialis Deep Tendon Reflex 2+ Normal Bilateral Tricep Deep Tendon Reflex 2+ Normal Bilateral Bicep Deep Tendon Reflex 2+ Normal PT-OP-J Posture/Palpation/Skin Start: 06/27/18 17:30 Freq: Status: Active Protocol: Document 07/09/18 09:47 LRN (Rec: 07/09/18 10:35 LRN [id number]) Palpation Assessment Location Two Palpation Location R Upper Trapezius Palpation Findings Soft Tissue Tightness Muscle Guarding Tenderness PT-OP-K Range of Motion Start: 06/27/18 17:30 Freq: Status: Active Protocol: Document 07/14/18 09:48 LRN (Rec: 07/14/18 14:57 LRN [id number]) Shoulder Goniometric Range of Motion Shoulder Measured in Degrees Right Passive Testing Position Supine Flexion 112 Right Active Internal Rotation Behind Back (text) Inferior to Sacrum PT-OP-L Special Tests Start: 06/27/18 17:30 Freq: Status: Active Protocol: Document 06/30/18 15:46 LRN (Rec: 06/30/18 16:51 LRN [id number]) Special Tests Other Special Tests Special Tests Cervical: Cervical Compression and Distraction: Negative. Foraminal Compression: Negative bilaterally. Shoulder: Impingement: Positive on Right with posterior brachium pain. PT-OP-M Strength Start: 06/27/18 17:30 Freq: Status: Active Protocol: Document 06/30/18 15:46 LRN (Rec: 06/30/18 16:51 LRN [id number]) Shoulder Strength Shoulder Manual Muscle Testing Right Comments Generally 2/5 due to pain. Left Reason Not Measured WFL Elbow/Forearm Strength Elbow and Forearm Manual Muscle Testing Right Reason Not Measured WFL Comments Generally 5/5 with shoulder at 90 deg's flexion. PT-OP-T Assessment and Plan Start: 06/27/18 17:30 Freq: Status: Active Protocol: Document 07/16/18 09:49 LRN (Rec: 07/16/18 10:38 LRN [id number]) Physical Therapy Assessment Rehab Potential Rehabilitation Potential Good Impairments Impairments Functional Activities Pain ROM Strength Other Impairments ROM and strength impairment is with L shoulder. Goals Three Impairment Decreased R shoulder IR AROM/ PROM due to pain Short Term Goal (STG) Pt will demonstrated functional passive ROM of the R shoulder for reaching behind the back. STG Duration 07/13/18 Dump Truck Operator Goal (LTG) Pt will be able to put on her belt and tuck her shirt in the back without pain. LTG Duration 08/27/18 Two Impairment Decreased R active shoulder mobility due to R posterior brachium pain. Dump Truck Operator Goal (LTG) Pt will be able to reach overhead with mild discomfort to return to a light exercise home program. LTG Duration 08/27/18 One Impairment Lacks appropriate self care HEP. Dump Truck Operator Goal (LTG) Pt will be independent in a HEP. LTG Duration 08/27/17 Progress Towards Goals Progress Comments Can put the belt on, but it is really hard/stiff. Can reach up to middle shelf of kitchen cabinets to get things down. Assessment Summary Assessment The pt's R shoulder mobility has improved, but she has signs of R shoulder impingement (?Supraspinatus dysfunction) and instability at the GHJ. Her pain symptoms are not always typical for shoulder involvement, but manual cervical compression and traction tests clear her for cervical involvement. She has UE neural tension; therefore she may have cervical scaleni tightness also referring pain to her posterior upper arm. Scapular dysfunction also may be possibly effecting shoulder mobility and therefore R arm pain. Her R ACJ doesn't appear to be involved. Further testing (MRI) to assess for soft tissue dysfunction of the R shoulder will help to determine if there could be Scaleni involvement of the neck or possibly an insidious nature to her pain. Physical Therapy Plan Frequency and Duration Frequency of Treatment 2x/Week Plan of Care Start Date 06/30/18 Plan of Care End Date 09/01/18 Therapeutic Interventions Therapeutic Interventions Home Exercise Program Manual Therapy Patient/Caregiver Education Self-Care/Home Management Soft Tissue Mobilization Taping Therapeutic Exercises Modalities Cold Pack/Ice Massage Hot Packs Other Referrals/Consults Referrals/Consults Recommended Recommend further testing for R shoulder joint dysfunction and possibly cervical involvement. Next Visit Focus/Plan Next Note Type Treatment Note Next Visit Plan Review previous HEP issued ( Scalene stretch and prone shoulder strengthening). Issue and review HEP of scapular depression and Rhomboid stretch with hands on wall (for scapular protraction and self R Rhomboid stretch) and progress other scapular stab ex's. Stretch into shoulder flex and elbow ext with forearm pronation, & scapular stabilization. Hold modalities other than cryotherapy and MH until determination if further testing is needed to identify source of pain complaints due to poor pain resolution.
--- NOTE | 2018-07-16 17:29 | PT.OPPOC ---
Current Diagnoses Other enthesopathies, not elsewhere classified (07/16/18) Provider Visit Care Team Role Provider Type Chris Gan MD Primary Care Provider Physician Specialty: [facility] Address: [address] [place] [address], [id number] Email: [email or web address] DENNY Camejo Attending Provider Advanced Design Maintenance Engineer Specialty: [facility] Address: [address] [place] [address], [id number] Email: [email or web address] Plan Of Care PT-OP-T Assessment and Plan Start: 06/27/18 17:30 Freq: Status: Active Protocol: Document 07/16/18 09:49 LRN (Rec: 07/16/18 10:38 LRN [id number]) Physical Therapy Assessment Rehab Potential Rehabilitation Potential Good Impairments Impairments Functional Activities Pain ROM Strength Other Impairments ROM and strength impairment is with L shoulder. Goals Three Impairment Decreased R shoulder IR AROM/ PROM due to pain Short Term Goal (STG) Pt will demonstrated functional passive ROM of the R shoulder for reaching behind the back. STG Duration 07/13/18 [facility] Goal (LTG) Pt will be able to put on her belt and tuck her shirt in the back without pain. LTG Duration 08/27/18 Two Impairment Decreased R active shoulder mobility due to R posterior brachium pain. Plant Wire Chief Goal (LTG) Pt will be able to reach overhead with mild discomfort to return to a light exercise home program. LTG Duration 08/27/18 One Impairment Lacks appropriate self care HEP. Plant Wire Chief Goal (LTG) Pt will be independent in a HEP. LTG Duration 08/27/17 Progress Towards Goals Progress Comments Can put the belt on, but it is really hard/stiff. Can reach up to middle shelf of kitchen cabinets to get things down. Assessment Summary Assessment The pt's R shoulder mobility has improved, but she has signs of R shoulder impingement (?Supraspinatus dysfunction) and instability at the GHJ. Her pain symptoms are not always typical for shoulder involvement, but manual cervical compression and traction tests clear her for cervical involvement. She has UE neural tension; therefore she may have cervical scaleni tightness also referring pain to her posterior upper arm. Scapular dysfunction also may be possibly effecting shoulder mobility and therefore R arm pain. Her R ACJ doesn't appear to be involved. Further testing (MRI) to assess for soft tissue dysfunction of the R shoulder will help to determine if there could be Scaleni involvement of the neck or possibly an insidious nature to her pain. Physical Therapy Plan Frequency and Duration Frequency of Treatment 2x/Week Plan of Care Start Date 06/30/18 Plan of Care End Date 09/01/18 Therapeutic Interventions Therapeutic Interventions Home Exercise Program Manual Therapy Patient/Caregiver Education Self-Care/Home Management Soft Tissue Mobilization Taping Therapeutic Exercises Modalities Cold Pack/Ice Massage Hot Packs Other Referrals/Consults Referrals/Consults Recommended Recommend further testing for R shoulder joint dysfunction and possibly cervical involvement. Next Visit Focus/Plan Next Note Type Treatment Note Next Visit Plan Review previous HEP issued ( Scalene stretch and prone shoulder strengthening). Issue and review HEP of scapular depression and Rhomboid stretch with hands on wall (for scapular protraction and self R Rhomboid stretch) and progress other scapular stab ex's. Stretch into shoulder flex and elbow ext with forearm pronation, & scapular stabilization. Hold modalities other than cryotherapy and MH until determination if further testing is needed to identify source of pain complaints due to poor pain resolution. Plan of Care Dates Plan of Care Start Date 06/30/18 Plan of Care End Date 09/01/18 Please Sign and Return: I have reviewed this Plan of Care and certify that the skilled therapy services above are required to meet the patient?s needs. Physician Signature Date Printed Name and Credentials Clinical Instructor Signature Printed Name and Credentials
--- NOTE | 2018-08-03 15:27 | PT.OTN ---
Current Diagnoses Other enthesopathies, not elsewhere classified (08/03/18) Physical Therapy Treatment Note PT-OP-A Visit Information Start: 06/27/18 17:30 Freq: Status: Active Protocol: Document 08/03/18 09:50 LRN (Rec: 08/03/18 11:29 LRN [id number]) Out-Patient Physical Therapy Visit Information Visit Information Visit Type Treatment Note Visit Start Time 09:50 Visit Stop Time 10:50 Total Visit Minutes 60 Visit Number 7 Number of ELECTRICIAN SECOND Visits 0 Evaluation Information Evaluation Date 06/30/18 PT-OP-B Current Condition Start: 06/27/18 17:30 Freq: Status: Active Protocol: Document 06/30/18 15:46 LRN (Rec: 06/30/18 16:51 LRN [id number]) Current Condition History of Current Condition Onset Date 04/29/2018 Current Complaints Tightness>Pain in R posterior upper arm. Treatment Goals Patient/Caregiver Goals Pt goal is to eliminate the pain, regain full motion of the R arm and shoulder. Prior Functional Status Baseline Function- ADL's Independent Baseline Function- Mobility Independent Baseline Function- Recreation/Hobbies Exercises at home with weights and aerobic exercise. Current Functional Impairments (Reported) Functional Limitations- ADL's Difficulty lifting overhead. Difficulty reaching behind the back for dressing and bathing . Functional Limitations- Recreation/ Stopped exercising with Hobbies weights, has continued with aerobic exercise. Personal Factors Other Personal Factors That May Effect None Therapy/Recovery PT-OP-C Subjective Start: 06/27/18 17:30 Freq: Status: Active Protocol: Document 08/03/18 09:50 LRN (Rec: 08/03/18 11:29 LRN [id number]) OP-PT Subjective Patient Comments Patient Comments Less of the original pain is gone from behind the upper arm . Now the pain is in the R shoulder. Can reach higher and low behind the back and all the way across and is starting reach a little higher up the back. Able to stretch the arm with the hand on the wall easier. Progress is slow . Sometimes the arm just aches and has to take IBP. Icing helps when aching otherwise uses heat. Seeing Dr. Regan tomorrow morning. Held MRI so letting Dr. Regan decide. Patient Reported Progress Improving OP-PT Pain Assessment Pain Assessment Grid Paper Pain Assessment Grid Completed No Location Posterior R upper Brachium, Intensity 1 PT-OP-F Manual Assessment Start: 06/27/18 17:30 Freq: Status: Active Protocol: Document 07/09/18 09:47 LRN (Rec: 07/09/18 10:35 LRN [id number]) Manual Assessments Soft Tissue Assessment Soft Tissue Mobility Assessment No tenderness in R posterior brachium or biceps in full extension. Joint Mobility Assessment Joint Mobility Assessment Shoulder PT-OP-H Neuro Start: 06/27/18 17:30 Freq: Status: Active Protocol: Document 06/30/18 15:46 LRN (Rec: 06/30/18 16:51 LRN [id number]) Sensation Evaluation Gross Sensation Gross Sensation WNL Deep Tendon Reflex & Clonus Assessment Deep Tendon Reflex Bilateral Brachioradialis Deep Tendon Reflex 2+ Normal Bilateral Tricep Deep Tendon Reflex 2+ Normal Bilateral Bicep Deep Tendon Reflex 2+ Normal PT-OP-J Posture/Palpation/Skin Start: 06/27/18 17:30 Freq: Status: Active Protocol: Document 07/09/18 09:47 LRN (Rec: 07/09/18 10:35 LRN [id number]) Palpation Assessment Location Two Palpation Location R Upper Trapezius Palpation Findings Soft Tissue Tightness Muscle Guarding Tenderness PT-OP-K Range of Motion Start: 06/27/18 17:30 Freq: Status: Active Protocol: Document 08/03/18 09:50 LRN (Rec: 08/03/18 15:13 LRN [id number]) Shoulder Goniometric Range of Motion Shoulder Measured in Degrees Right Passive Testing Position Supine Flexion 122 Abduction 80 External Rotation at 90 degrees 25 Abduction Internal Rotation 45 PT-OP-L Special Tests Start: 06/27/18 17:30 Freq: Status: Active Protocol: Document 06/30/18 15:46 LRN (Rec: 06/30/18 16:51 LRN [id number]) Special Tests Other Special Tests Special Tests Cervical: Cervical Compression and Distraction: Negative. Foraminal Compression: Negative bilaterally. Shoulder: Impingement: Positive on Right with posterior brachium pain. PT-OP-M Strength Start: 06/27/18 17:30 Freq: Status: Active Protocol: Document 06/30/18 15:46 LRN (Rec: 06/30/18 16:51 LRN [id number]) Shoulder Strength Shoulder Manual Muscle Testing Right Comments Generally 2/5 due to pain. Left Reason Not Measured WFL Elbow/Forearm Strength Elbow and Forearm Manual Muscle Testing Right Reason Not Measured WFL Comments Generally 5/5 with shoulder at 90 deg's flexion. PT-OP-Q Treatments Start: 06/27/18 17:30 Freq: Status: Active Protocol: Document 08/03/18 09:50 LRN (Rec: 08/03/18 11:29 LRN [id number]) Cardio Equipment Upper Body Ergometer (UBE) Duration (Minutes) 10 Seat Position 13 Height 4 Other 5' fwd/bkwd Therapeutic Exercises Supine Exercises Scapular depression Supine Exercise Name Arms in max painfree flexion Side bilateral Reps/Minutes 15x Scapular pinches Reps/Minutes 10x Shoulder Flex Supine Exercise Name Stretch with approximation into GHJ Side right Reps/Minutes 5' Comments No change in pain with approximation given at GHJ Sidelying Exercises Sleeper stretch Side right Reps/Minutes 3' Comments Arm at 45 & 90 deg's Standing Exercises R shoulder IR stretch with towel Standing Exercise Name IR stretch with towel Reps/Minutes 3' Manual Therapy Treatment Soft Tissue Mobilization R UT Body Location R UT, Scalenes, Pec Minor, Supraspinatus Mobilization Type Myofascial Release Sustained Pressure Trigger Point Release Joint Mobilizations R UE Joint GHJ Direction Inferior, Posterior Grade II Body Position Supine Reps/Duration 8' PT-OP-R Modalities Start: 06/27/18 17:30 Freq: Status: Active Protocol: Document 08/03/18 09:50 LRN (Rec: 08/03/18 15:09 N [id number]) Hot Pack/Cold Pack Treatment Hot Pack Location Back Patient Position Supine Treatment Duration (minutes) 10 Patient Tolerance Good Comments Performed with Cold pack Cold Pack Location R Shoulder Patient Position Hooklying Treatment Duration (minutes) 10 Patient Tolerance Good Comments Performed with Hot pack PT-OP-T Assessment and Plan Start: 06/27/18 17:30 Freq: Status: Active Protocol: Document 08/03/18 09:50 LRN (Rec: 08/03/18 11:29 LRN [id number]) Physical Therapy Assessment Rehab Potential Rehabilitation Potential Good Evaluation Complexity Number of Personal Factors/Comorbidities 0 Number of Body Systems Impaired 3 Clinical Presentation at Evaluation Evolving Impairments Impairments Functional Activities Pain ROM Strength Other Impairments ROM and strength impairment is with L shoulder. Goals Three Impairment Decreased R shoulder IR AROM/ PROM due to pain Short Term Goal (STG) Pt will demonstrated functional passive ROM of the R shoulder for reaching behind the back. STG Duration 07/13/18 Shelter Goal (LTG) Pt will be able to put on her belt and tuck her shirt in the back without pain. (08/03/18: Mildly easier to put belt on) . LTG Duration 08/27/18 Two Impairment Decreased R active shoulder mobility due to R posterior brachium pain. Standards Analyst Goal (LTG) Pt will be able to reach overhead with mild discomfort to return to a light exercise home program. LTG Duration 08/27/18 One Impairment Lacks appropriate self care HEP. Standards Analyst Goal (LTG) Pt will be independent in a HEP. LTG Duration 08/27/17 Progress Towards Goals Progress Comments Can put the belt on a little better. Can reach up to middle shelf of kitchen cabinets to get things down. Assessment Summary Assessment Pt performing scalene stretch properly. Pt ROM presents as frozen shoulder, but has signs or R shoulder impingement. The pt's R shoulder mobility has improved. Signs of R shoulder impingement ( Supraspinatus, ?Subscapularis dysfunction) and instability at the J. Her pain symptoms are now typical for shoulder involvement. Manual cervical compression and traction tests clear her for cervical involvement. She has UE neural tension; therefore she has cervical scaleni tightness also referring pain to her posterior upper arm. Scapular dysfunction also may be possibly effecting shoulder mobility and therefore R arm pain. Further testing (MRI) to assess for soft tissue dysfunction of the R shoulder will help to determine if there could be Scaleni involvement of the neck or possibly an insidious nature to her pain. Physical Therapy Plan Frequency and Duration Frequency of Treatment 2x/Week Plan of Care Start Date 06/30/18 Plan of Care End Date 09/01/18 Next Visit Focus/Plan Next Note Type Treatment Note Next Visit Plan Check outcome of Dr Regan visit. Review prone shoulder strengthening. Issue and review HEP of scapular depression and Rhomboid stretch with hands on wall ( for scapular protraction and self R Rhomboid stretch) and progress scapular stab ex's. Stretch into shoulder flex and elbow ext with forearm pronation. Hold modalities other than cryotherapy and MH until determination if further testing is needed to identify source of pain complaints due to poor pain resolution.
--- NOTE | 2018-08-06 16:03 | PT.OTN ---
Current Diagnoses Other enthesopathies, not elsewhere classified (08/06/18) Physical Therapy Treatment Note PT-OP-A Visit Information Start: 06/27/18 17:30 Freq: Status: Active Protocol: Document 08/06/18 09:50 LRN (Rec: 08/06/18 10:05 LRN [id number]) Out-Patient Physical Therapy Visit Information Visit Information Visit Type Treatment Note Visit Start Time 09:50 Visit Stop Time 10:45 Total Visit Minutes 55 Visit Number 8 Number of PRIMER SUPERVISOR Visits 0 Evaluation Information Evaluation Date 06/30/18 PT-OP-B Current Condition Start: 06/27/18 17:30 Freq: Status: Active Protocol: Document 06/30/18 15:46 LRN (Rec: 06/30/18 16:51 LRN [id number]) Current Condition History of Current Condition Onset Date 04/29/2018 Current Complaints Tightness>Pain in R posterior upper arm. Treatment Goals Patient/Caregiver Goals Pt goal is to eliminate the pain, regain full motion of the R arm and shoulder. Prior Functional Status Baseline Function- ADL's Independent Baseline Function- Mobility Independent Baseline Function- Recreation/Hobbies Exercises at home with weights and aerobic exercise. Current Functional Impairments (Reported) Functional Limitations- ADL's Difficulty lifting overhead. Difficulty reaching behind the back for dressing and bathing . Functional Limitations- Recreation/ Stopped exercising with Hobbies weights, has continued with aerobic exercise. Personal Factors Other Personal Factors That May Effect None Therapy/Recovery PT-OP-C Subjective Start: 06/27/18 17:30 Freq: Status: Active Protocol: Document 08/06/18 09:50 LRN (Rec: 08/06/18 10:05 LRN [id number]) OP-PT Subjective Patient Comments Patient Comments States Dr. Regan dx was Joon- menopausal R Frozen shoulder, no arthritis. Will go back to orthopedist in 6 weeks if not getting better. Patient Reported Progress Improving PT-OP-F Manual Assessment Start: 06/27/18 17:30 Freq: Status: Active Protocol: Document 07/09/18 09:47 LRN (Rec: 07/09/18 10:35 LRN [id number]) Manual Assessments Soft Tissue Assessment Soft Tissue Mobility Assessment No tenderness in R posterior brachium or biceps in full extension. Joint Mobility Assessment Joint Mobility Assessment Shoulder PT-OP-H Neuro Start: 06/27/18 17:30 Freq: Status: Active Protocol: Document 06/30/18 15:46 LRN (Rec: 06/30/18 16:51 LRN [id number]) Sensation Evaluation Gross Sensation Gross Sensation WNL Deep Tendon Reflex & Clonus Assessment Deep Tendon Reflex Bilateral Brachioradialis Deep Tendon Reflex 2+ Normal Bilateral Tricep Deep Tendon Reflex 2+ Normal Bilateral Bicep Deep Tendon Reflex 2+ Normal PT-OP-J Posture/Palpation/Skin Start: 06/27/18 17:30 Freq: Status: Active Protocol: Document 07/09/18 09:47 LRN (Rec: 07/09/18 10:35 LRN [id number]) Palpation Assessment Location Two Palpation Location R Upper Trapezius Palpation Findings Soft Tissue Tightness Muscle Guarding Tenderness PT-OP-K Range of Motion Start: 06/27/18 17:30 Freq: Status: Active Protocol: Document 08/03/18 09:50 LRN (Rec: 08/03/18 15:13 LRN [id number]) Shoulder Goniometric Range of Motion Shoulder Measured in Degrees Right Passive Testing Position Supine Flexion 122 Abduction 80 External Rotation at 90 degrees 25 Abduction Internal Rotation 45 PT-OP-L Special Tests Start: 06/27/18 17:30 Freq: Status: Active Protocol: Document 06/30/18 15:46 LRN (Rec: 06/30/18 16:51 LRN [id number]) Special Tests Other Special Tests Special Tests Cervical: Cervical Compression and Distraction: Negative. Foraminal Compression: Negative bilaterally. Shoulder: Impingement: Positive on Right with posterior brachium pain. PT-OP-M Strength Start: 06/27/18 17:30 Freq: Status: Active Protocol: Document 06/30/18 15:46 LRN (Rec: 06/30/18 16:51 LRN [id number]) Shoulder Strength Shoulder Manual Muscle Testing Right Comments Generally 2/5 due to pain. Left Reason Not Measured WFL Elbow/Forearm Strength Elbow and Forearm Manual Muscle Testing Right Reason Not Measured WFL Comments Generally 5/5 with shoulder at 90 deg's flexion. PT-OP-Q Treatments Start: 06/27/18 17:30 Freq: Status: Active Protocol: Document 08/06/18 09:50 LRN (Rec: 08/06/18 10:05 LRN [id number]) Cardio Equipment Upper Body Ergometer (UBE) Duration (Minutes) 10 Seat Position 13 Height 5 Other 5' fwd/bkwd Therapeutic Exercises Supine Exercises Shoulder IR stretch Supine Exercise Name PROM with cane, f/b AROM Side right Shoulder ER stretch Supine Exercise Name PROM with cane, f/b AROM Side right Shoulder Flex Side right Reps/Minutes 5' Comments No change in pain with approximation given at GHJ UE neural glide Supine Exercise Name R arm Ulnar & Median nerve Duncan Side right Reps/Minutes 4' Comments Tight feeling at Deltoid insertion at Humerus Manual Therapy Treatment Soft Tissue Mobilization STM Body Location R Upper Biceps and Deltoid Mobilization Type Strumming Body Position Supine Joint Mobilizations R UE Joint GHJ Direction Inferior, Posterior Grade II Body Position Supine Reps/Duration 8' Self-Care/Home Management Treatment Education Patient Education Home Exercise Program Activities Self-Care/Home Management Activities Reviewed and issued wand exercises. PT-OP-R Modalities Start: 06/27/18 17:30 Freq: Status: Active Protocol: Document 08/06/18 09:50 LRN (Rec: 08/06/18 10:05 LRN [id number]) Hot Pack/Cold Pack Treatment Cold Pack Location R Shoulder Patient Position Hooklying Treatment Duration (minutes) 10 Patient Tolerance Good Comments Performed with Hot pack PT-OP-T Assessment and Plan Start: 06/27/18 17:30 Freq: Status: Active Protocol: Document 08/06/18 09:50 LRN (Rec: 08/06/18 10:05 LRN [id number]) Physical Therapy Assessment Assessment Summary Assessment R frozen shoulder presentation . Signs of R shoulder impingement (Supraspinatus, ? Subscapularis dysfunction) and instability with today decreased posterior and inferior mobility at the GHJ. Cervical involvement is not present. She has UE neural tension, probably from cervical scaleni tightness also referring pain to her posterior upper arm. Scapular mobility is decreased . Physical Therapy Plan Frequency and Duration Frequency of Treatment 2x/Week Plan of Care Start Date 06/30/18 Plan of Care End Date 09/01/18 Next Visit Focus/Plan Next Note Type Treatment Note Next Visit Plan Review prone shoulder strengthening. Issue and review HEP of scapular depression and Rhomboid stretch with hands on wall ( for scapular protraction and self R Rhomboid stretch) and progress scapular stab ex's. Check stretch into shoulder flex and elbow ext with forearm pronation. Pt diagnossed with joon- menopausal frozen shoulder; therefore use of modalities is appropriate if needed. When pt is on HEP of shoulder, joint, scapular stretch/ stabilization then decrease therapy to 1x/week with possible intermittent follow ups for next 3-4 months.
--- NOTE | 2018-08-10 14:51 | PT.OTN ---
Current Diagnoses Other enthesopathies, not elsewhere classified (08/10/18) Physical Therapy Treatment Note PT-OP-A Visit Information Start: 06/27/18 17:30 Freq: Status: Active Protocol: Document 08/10/18 10:33 LRN (Rec: 08/10/18 11:16 LRN [id number]) Out-Patient Physical Therapy Visit Information Visit Information Visit Type Treatment Note Visit Start Time 10:33 Visit Stop Time 11:26 Total Visit Minutes 53 Visit Number 9 Number of MORTGAGE ACCOUNTING CLERK Visits 0 Evaluation Information Evaluation Date 06/30/18 PT-OP-B Current Condition Start: 06/27/18 17:30 Freq: Status: Active Protocol: Document 06/30/18 15:46 LRN (Rec: 06/30/18 16:51 LRN [id number]) Current Condition History of Current Condition Onset Date 04/29/2018 Current Complaints Tightness>Pain in R posterior upper arm. Treatment Goals Patient/Caregiver Goals Pt goal is to eliminate the pain, regain full motion of the R arm and shoulder. Prior Functional Status Baseline Function- ADL's Independent Baseline Function- Mobility Independent Baseline Function- Recreation/Hobbies Exercises at home with weights and aerobic exercise. Current Functional Impairments (Reported) Functional Limitations- ADL's Difficulty lifting overhead. Difficulty reaching behind the back for dressing and bathing . Functional Limitations- Recreation/ Stopped exercising with Hobbies weights, has continued with aerobic exercise. Personal Factors Other Personal Factors That May Effect None Therapy/Recovery PT-OP-C Subjective Start: 06/27/18 17:30 Freq: Status: Active Protocol: Document 08/10/18 10:33 LRN (Rec: 08/10/18 11:16 LRN [id number]) OP-PT Subjective Patient Comments Patient Comments Feeling better, doing more normal things. Can do things without the shoulder grabbing . Did a lot of cleaning and pantry work. Arm doesn't feel as weak. PT-OP-F Manual Assessment Start: 06/27/18 17:30 Freq: Status: Active Protocol: Document 07/09/18 09:47 LRN (Rec: 07/09/18 10:35 LRN [id number]) Manual Assessments Soft Tissue Assessment Soft Tissue Mobility Assessment No tenderness in R posterior brachium or biceps in full extension. Joint Mobility Assessment Joint Mobility Assessment Shoulder PT-OP-H Neuro Start: 06/27/18 17:30 Freq: Status: Active Protocol: Document 06/30/18 15:46 LRN (Rec: 06/30/18 16:51 LRN [id number]) Sensation Evaluation Gross Sensation Gross Sensation WNL Deep Tendon Reflex & Clonus Assessment Deep Tendon Reflex Bilateral Brachioradialis Deep Tendon Reflex 2+ Normal Bilateral Tricep Deep Tendon Reflex 2+ Normal Bilateral Bicep Deep Tendon Reflex 2+ Normal PT-OP-J Posture/Palpation/Skin Start: 06/27/18 17:30 Freq: Status: Active Protocol: Document 07/09/18 09:47 LRN (Rec: 07/09/18 10:35 LRN [id number]) Palpation Assessment Location Two Palpation Location R Upper Trapezius Palpation Findings Soft Tissue Tightness Muscle Guarding Tenderness PT-OP-K Range of Motion Start: 06/27/18 17:30 Freq: Status: Active Protocol: Document 08/03/18 09:50 LRN (Rec: 08/03/18 15:13 LRN [id number]) Shoulder Goniometric Range of Motion Shoulder Measured in Degrees Right Passive Testing Position Supine Flexion 122 Abduction 80 External Rotation at 90 degrees 25 Abduction Internal Rotation 45 PT-OP-L Special Tests Start: 06/27/18 17:30 Freq: Status: Active Protocol: Document 06/30/18 15:46 LRN (Rec: 06/30/18 16:51 LRN [id number]) Special Tests Other Special Tests Special Tests Cervical: Cervical Compression and Distraction: Negative. Foraminal Compression: Negative bilaterally. Shoulder: Impingement: Positive on Right with posterior brachium pain. PT-OP-M Strength Start: 06/27/18 17:30 Freq: Status: Active Protocol: Document 06/30/18 15:46 LRN (Rec: 06/30/18 16:51 LRN [id number]) Shoulder Strength Shoulder Manual Muscle Testing Right Comments Generally 2/5 due to pain. Left Reason Not Measured WFL Elbow/Forearm Strength Elbow and Forearm Manual Muscle Testing Right Reason Not Measured WFL Comments Generally 5/5 with shoulder at 90 deg's flexion. PT-OP-Q Treatments Start: 06/27/18 17:30 Freq: Status: Active Protocol: Document 08/10/18 10:33 LRN (Rec: 08/10/18 11:16 LRN [id number]) Cardio Equipment Upper Body Ergometer (UBE) Duration (Minutes) 8 RPM 90 Seat Position 9 Height 6 Other 4' fwd/bkwd Therapeutic Exercises Supine Exercises Shoulder IR stretch Supine Exercise Name PROM f/b AROM Side right Shoulder ER stretch Supine Exercise Name PROM f/b AROM Side right Scapular depression Side bilateral Resistance Lev1 T-Band Equipment Used T-Band/Cane Reps/Minutes 15 x Shoulder Flex Supine Exercise Name Stretch Side right Reps/Minutes 5' Comments Approximation midly decr'd pain, traction improve mobility Prone Exercises Shoulder exercise Prone Exercise Name Ext, Horiz AB, ER/IR Side right Reps/Minutes 10 x 2 each Sitting Exercises Overhead Ruthie Sitting Exercise Name Flexion Side right Equipment Used Ruthie Reps/Minutes 1' x 4 Standing Exercises R shoulder IR stretch with towel Standing Exercise Name IR stretch without towel Reps/Minutes 2' PT-OP-R Modalities Start: 06/27/18 17:30 Freq: Status: Active Protocol: Document 08/06/18 09:50 LRN (Rec: 08/06/18 10:05 LRN [id number]) Hot Pack/Cold Pack Treatment Cold Pack Location R Shoulder Patient Position Hooklying Treatment Duration (minutes) 10 Patient Tolerance Good Comments Performed with Hot pack PT-OP-T Assessment and Plan Start: 06/27/18 17:30 Freq: Status: Active Protocol: Document 08/10/18 10:33 LRN (Rec: 08/10/18 11:16 LRN [id number]) Physical Therapy Assessment Goals Three Impairment Decreased R shoulder IR AROM/ PROM due to pain Short Term Goal (STG) Pt will demonstrated functional passive ROM of the R shoulder for reaching behind the back. STG Duration 07/13/18 Intermediate Goal (LTG) Pt will be able to put on her belt and tuck her shirt in the back without pain. (08/03/18: Mildly easier to put belt on) . LTG Duration 08/27/18 Two Impairment Decreased R active shoulder mobility due to R posterior brachium pain. Community Health Director Goal (LTG) Pt will be able to reach overhead with mild discomfort to return to a light exercise home program. LTG Duration 08/27/18 One Impairment Lacks appropriate self care HEP. Community Health Director Goal (LTG) Pt will be independent in a HEP. LTG Duration 08/27/17 Assessment Summary Assessment R frozen shoulder presentation with ROM improvement noted ( see ROM). Lessening signs of R shoulder impingement ( Supraspinatus, ?Subscapularis dysfunction). Cervical involvement is not present. Her UE neural tension is lessening. Tightness probably from cervical scaleni tightness also referring pain to her posterior upper arm. Pt has R shoulder instability & decreased scapular mobility. Physical Therapy Plan Frequency and Duration Frequency of Treatment 2x/Week Plan of Care Start Date 06/30/18 Plan of Care End Date 09/01/18 Next Visit Focus/Plan Next Note Type Treatment Note Next Visit Plan Assess goals. Issue and review HEP of scapular depression and Rhomboid stretch with hands on wall ( for scapular protraction and self R Rhomboid stretch). Progress scapular stab ex's. Check stretch into shoulder flex and elbow ext with forearm pronation. Pt diagnosed with joon-menopausal frozen shoulder; therefore use of modalities is appropriate if needed. When pt is on HEP of shoulder, joint, scapular stretch/ stabilization then decrease therapy to 1x/week with possible intermittent follow ups for next 3-4 months.
--- NOTE | 2018-08-25 09:40 | PT.OTN ---
Current Diagnoses Other enthesopathies, not elsewhere classified (08/25/18) Physical Therapy Treatment Note PT-OP-A Visit Information Start: 06/27/18 17:30 Freq: Status: Active Protocol: Document 08/25/18 08:14 LRN (Rec: 08/25/18 09:10 LRN [id number]) Out-Patient Physical Therapy Visit Information Visit Information Visit Type Progress Note Visit Start Time 08:14 Visit Stop Time 09:05 Total Visit Minutes 51 Visit Number 10 Number of TUMBLER DYEING MACHINE OPERATOR Visits 0 Evaluation Information Evaluation Date 06/30/18 PT-OP-B Current Condition Start: 06/27/18 17:30 Freq: Status: Active Protocol: Document 06/30/18 15:46 LRN (Rec: 06/30/18 16:51 LRN [id number]) Current Condition History of Current Condition Onset Date 04/29/2018 Current Complaints Tightness>Pain in R posterior upper arm. Treatment Goals Patient/Caregiver Goals Pt goal is to eliminate the pain, regain full motion of the R arm and shoulder. Prior Functional Status Baseline Function- ADL's Independent Baseline Function- Mobility Independent Baseline Function- Recreation/Hobbies Exercises at home with weights and aerobic exercise. Current Functional Impairments (Reported) Functional Limitations- ADL's Difficulty lifting overhead. Difficulty reaching behind the back for dressing and bathing . Functional Limitations- Recreation/ Stopped exercising with Hobbies weights, has continued with aerobic exercise. Personal Factors Other Personal Factors That May Effect None Therapy/Recovery PT-OP-C Subjective Start: 06/27/18 17:30 Freq: Status: Active Protocol: Document 08/25/18 08:14 LRN (Rec: 08/25/18 09:10 LRN [id number]) OP-PT Subjective Patient Comments Patient Comments Can reach into shelves, but not the top shelf. States she can put her belt on with difficulty. She can't tuck her shirt in because of pain. One week had an ache across the shoulders for 3 days, but it felt like muscle ache, resolved with heat and self massage. Patient Reported Progress Improving PT-OP-F Manual Assessment Start: 06/27/18 17:30 Freq: Status: Active Protocol: Document 07/09/18 09:47 LRN (Rec: 07/09/18 10:35 LRN [id number]) Manual Assessments Soft Tissue Assessment Soft Tissue Mobility Assessment No tenderness in R posterior brachium or biceps in full extension. Joint Mobility Assessment Joint Mobility Assessment Shoulder PT-OP-H Neuro Start: 06/27/18 17:30 Freq: Status: Active Protocol: Document 06/30/18 15:46 LRN (Rec: 06/30/18 16:51 LRN [id number]) Sensation Evaluation Gross Sensation Gross Sensation WNL Deep Tendon Reflex & Clonus Assessment Deep Tendon Reflex Bilateral Brachioradialis Deep Tendon Reflex 2+ Normal Bilateral Tricep Deep Tendon Reflex 2+ Normal Bilateral Bicep Deep Tendon Reflex 2+ Normal PT-OP-J Posture/Palpation/Skin Start: 06/27/18 17:30 Freq: Status: Active Protocol: Document 07/09/18 09:47 LRN (Rec: 07/09/18 10:35 LRN [id number]) Palpation Assessment Location Two Palpation Location R Upper Trapezius Palpation Findings Soft Tissue Tightness Muscle Guarding Tenderness PT-OP-K Range of Motion Start: 06/27/18 17:30 Freq: Status: Active Protocol: Document 08/25/18 08:14 LRN (Rec: 08/25/18 09:10 LRN [id number]) Shoulder Goniometric Range of Motion Shoulder Measured in Degrees Left Passive Testing Position Supine Flexion 158 Extension 52 Abduction 100 External Rotation at 90 degrees 90 Abduction External Rotation at 45 degrees 80 Abduction Internal Rotation 80 Internal Rotation Behind Back (text) T3 in sitting Right Passive Testing Position Supine Flexion 155 Abduction 95 External Rotation at 90 degrees 50 Abduction Internal Rotation 42 Internal Rotation Behind Back (text) Sacrum Right Active Testing Position Supine Flexion 150 External Rotation at 90 degrees 40 Abduction Internal Rotation 40 Internal Rotation Behind Back (text) Sacrum PT-OP-L Special Tests Start: 06/27/18 17:30 Freq: Status: Active Protocol: Document 06/30/18 15:46 LRN (Rec: 06/30/18 16:51 LRN [id number]) Special Tests Other Special Tests Special Tests Cervical: Cervical Compression and Distraction: Negative. Foraminal Compression: Negative bilaterally. Shoulder: Impingement: Positive on Right with posterior brachium pain. PT-OP-M Strength Start: 06/27/18 17:30 Freq: Status: Active Protocol: Document 06/30/18 15:46 LRN (Rec: 06/30/18 16:51 LRN [id number]) Shoulder Strength Shoulder Manual Muscle Testing Right Comments Generally 2/5 due to pain. Left Reason Not Measured WFL Elbow/Forearm Strength Elbow and Forearm Manual Muscle Testing Right Reason Not Measured WFL Comments Generally 5/5 with shoulder at 90 deg's flexion. PT-OP-Q Treatments Start: 06/27/18 17:30 Freq: Status: Active Protocol: Document 08/25/18 08:14 LRN (Rec: 08/25/18 09:10 LRN [id number]) Cardio Equipment Upper Body Ergometer (UBE) Duration (Minutes) 8 RPM 90 Seat Position 9 Height 8 Other 4' fwd/bkwd Therapeutic Exercises Supine Exercises Shoulder IR stretch Supine Exercise Name PROM f/b AROM Side right Shoulder ER stretch Supine Exercise Name PROM f/b AROM Side right Comments ROM msmt taken Shoulder Flex Supine Exercise Name Stretch Side right Reps/Minutes 3' Comments ROM msmt taken Prone Exercises Shoulder IR Prone Exercise Name Hand behind back stretch f/b actively moving elbow forward Side right Reps/Minutes 3' Comments ROM msmt taken Sidelying Exercises Sleeper stretch Side right Reps/Minutes 3' Comments Arm at 45 & 90 deg's Sitting Exercises Overhead Ruthie Sitting Exercise Name Flexion Side right Equipment Used Ruthie Reps/Minutes 1' x 4 Standing Exercises Row Side bilateral Resistance Lev 2 T-Band Reps/Minutes 3' Shoulder ER/IR Standing Exercise Name T-Band strengthening Side right Resistance Lev 2 T-Band Reps/Minutes 6' R shoulder IR stretch with towel Standing Exercise Name IR stretch with towel Reps/Minutes 3' Shoulder drop Standing Exercise Name Lat Dorsi/Lower Trap strengthening (shoulder AD from side position) Side bilateral Resistance L 2 T-Band Reps/Minutes 3' Self-Care/Home Management Treatment Education Patient Education Home Exercise Program Activities Self-Care/Home Management Activities Issued and reviewed HEP: Scapular stabilizers of IR/ER/ AD/ext & propriception (weight shift with fingertips on countertop keeping shoulder blades flat to back). Issued Lev 3 T-Band since the pt's spouse has Lev 2 T-Band. PT-OP-R Modalities Start: 06/27/18 17:30 Freq: Status: Active Protocol: Document 08/06/18 09:50 LRN (Rec: 08/06/18 10:05 LRN [id number]) Hot Pack/Cold Pack Treatment Cold Pack Location R Shoulder Patient Position Hooklying Treatment Duration (minutes) 10 Patient Tolerance Good Comments Performed with Hot pack PT-OP-T Assessment and Plan Start: 06/27/18 17:30 Freq: Status: Active Protocol: Document 08/25/18 08:14 LRN (Rec: 08/25/18 09:10 LRN [id number]) Physical Therapy Assessment Rehab Potential Rehabilitation Potential Good Impairments Impairments Functional Activities Pain ROM Strength Other Impairments Impairment of R shoulder Goals Three Impairment Decreased R shoulder IR AROM/ PROM due to pain Short Term Goal (STG) Pt will demonstrated functional passive ROM of the R shoulder for reaching behind the back. STG Duration 09/14/18 (08/25/18: Goal partially met) Eligibility Analyst Goal (LTG) Pt will be able to put on her belt and tuck her shirt in the back without pain. (08/03/18: Mildly easier to put belt on) . LTG Duration 10/23/18 (08/25/18: Goal partially met) Two Impairment Decreased R active shoulder mobility due to R posterior brachium pain. Assisted Goal (LTG) Pt will be able to reach overhead with mild discomfort to return to a light exercise home program. LTG Duration 08/27/18 (08/16/18) GOAL MET One Impairment Lacks appropriate self care HEP. Assisted Goal (LTG) Pt will be independent in a HEP. LTG Duration 10/23/18 (08/25/18: Progressing with goal) Progress Towards Goals Progress Towards Goals Progressing Toward Goals Progress Comments Goal #1 Progressing HEP. Goal #2 Overhead reach goal was MET. Goal #3 Functional ROM behind back: Progressing with goal. Assessment Summary Assessment R frozen shoulder presentation with ROM improvement noted ( see ROM). Pt diagnosed with joon-menopausal frozen shoulder. Lessening signs of R shoulder impingement ( Supraspinatus, Subscapularis dysfunction). Cervical involvement is not present. Her UE neural tension is lessening. Tightness probably from cervical scaleni tightness also referring pain to her posterior upper arm. Pt has R shoulder instability & decreased scapular mobility with unusual pain presentation for a frozen shoulder. Physical Therapy Plan Frequency and Duration Frequency of Treatment 2x decr to 1x/week Duration of Treatment 2 months Plan of Care Start Date 08/25/18 Plan of Care End Date 10/23/18 Therapeutic Interventions Therapeutic Interventions Home Exercise Program Manual Therapy Patient/Caregiver Education Self-Care/Home Management Soft Tissue Mobilization Taping Therapeutic Exercises Modalities Cold Pack/Ice Massage Electric Stimulation Hot Packs Ultrasound Next Visit Focus/Plan Next Note Type Treatment Note Next Visit Plan Progression onto a HEP of shoulder ROM/strengthening program with decrease in therapy from 2x/week to 1x/ week after next visit. Issue and review HEP of Rhomboid stretch with hands on wall ( for scapular protraction and self R Rhomboid stretch). Progress scapular stab ex's ( add scapular stabilization/ proprioception ex's of ball work on wall). Check stretch into shoulder flex and elbow ext with forearm pronation. Decrease therapy to 1x/week with possible intermittent follow ups for next 1-2 months .
--- NOTE | 2018-08-25 09:40 | PT.OPPOC ---
Current Diagnoses Other enthesopathies, not elsewhere classified (08/25/18) Provider Visit Care Team Role Provider Type Chris Gan MD Primary Care Provider Physician Specialty: [facility] Practice Address: [address] [place] [address], [id number] Email: [email or web address] DENNY Camejo Attending Provider Advanced Vacuum Tank Tender Specialty: [facility] Practice Address: [address] [place] [address], [id number] Email: [email or web address] Plan Of Care PT-OP-T Assessment and Plan Start: 06/27/18 17:30 Freq: Status: Active Protocol: Document 08/25/18 08:14 LRN (Rec: 08/25/18 09:10 LRN [id number]) Physical Therapy Assessment Rehab Potential Rehabilitation Potential Good Impairments Impairments Functional Activities Pain ROM Strength Other Impairments Impairment of R shoulder Goals Three Impairment Decreased R shoulder IR AROM/ PROM due to pain Short Term Goal (STG) Pt will demonstrated functional passive ROM of the R shoulder for reaching behind the back. STG Duration 09/14/18 (08/25/18: Goal partially met) Nursing Home Goal (LTG) Pt will be able to put on her belt and tuck her shirt in the back without pain. (08/03/18: Mildly easier to put belt on) . LTG Duration 10/23/18 (08/25/18: Goal partially met) Two Impairment Decreased R active shoulder mobility due to R posterior brachium pain. Nursing Home Goal (LTG) Pt will be able to reach overhead with mild discomfort to return to a light exercise home program. LTG Duration 08/27/18 (08/16/18) GOAL MET One Impairment Lacks appropriate self care HEP. Nursing Home Goal (LTG) Pt will be independent in a HEP. LTG Duration 10/23/18 (08/25/18: Progressing with goal) Progress Towards Goals Progress Towards Goals Progressing Toward Goals Progress Comments Goal #1 Progressing HEP. Goal #2 Overhead reach goal was MET. Goal #3 Functional ROM behind back: Progressing with goal. Assessment Summary Assessment R frozen shoulder presentation with ROM improvement noted ( see ROM). Pt diagnosed with joon-menopausal frozen shoulder. Lessening signs of R shoulder impingement ( Supraspinatus, Subscapularis dysfunction). Cervical involvement is not present. Her UE neural tension is lessening. Tightness probably from cervical scaleni tightness also referring pain to her posterior upper arm. Pt has R shoulder instability & decreased scapular mobility with unusual pain presentation for a frozen shoulder. Physical Therapy Plan Frequency and Duration Frequency of Treatment 2x decr to 1x/week Duration of Treatment 2 months Plan of Care Start Date 08/25/18 Plan of Care End Date 10/23/18 Therapeutic Interventions Therapeutic Interventions Home Exercise Program Manual Therapy Patient/Caregiver Education Self-Care/Home Management Soft Tissue Mobilization Taping Therapeutic Exercises Modalities Cold Pack/Ice Massage Electric Stimulation Hot Packs Ultrasound Next Visit Focus/Plan Next Note Type Treatment Note Next Visit Plan Progression onto a HEP of shoulder ROM/strengthening program with decrease in therapy from 2x/week to 1x/ week after next visit. Issue and review HEP of Rhomboid stretch with hands on wall ( for scapular protraction and self R Rhomboid stretch). Progress scapular stab ex's ( add scapular stabilization/ proprioception ex's of ball work on wall). Check stretch into shoulder flex and elbow ext with forearm pronation. Decrease therapy to 1x/week with possible intermittent follow ups for next 1-2 months . Plan of Care Dates Plan of Care Start Date 08/25/18 Plan of Care End Date 10/23/18 Please Sign and Return: I have reviewed this Plan of Care and certify that the skilled therapy services above are required to meet the patient?s needs. Physician Signature Date Printed Name and Credentials Clinical Instructor Signature Printed Name and Credentials
--- NOTE | 2018-08-27 12:43 | PT.OTN ---
Current Diagnoses Other enthesopathies, not elsewhere classified (08/27/18) Physical Therapy Treatment Note PT-OP-A Visit Information Start: 06/27/18 17:30 Freq: Status: Active Protocol: Document 08/27/18 08:55 LRN (Rec: 08/27/18 09:48 LRN [id number]) Out-Patient Physical Therapy Visit Information Visit Information Visit Type Treatment Note Visit Start Time 08:55 Visit Stop Time 09:45 Total Visit Minutes 50 Visit Number 11 Number of MENTAL HEALTH ASSISTANT Visits 0 Evaluation Information Evaluation Date 06/30/18 PT-OP-B Current Condition Start: 06/27/18 17:30 Freq: Status: Active Protocol: Document 06/30/18 15:46 LRN (Rec: 06/30/18 16:51 LRN [id number]) Current Condition History of Current Condition Onset Date 04/29/2018 Current Complaints Tightness>Pain in R posterior upper arm. Treatment Goals Patient/Caregiver Goals Pt goal is to eliminate the pain, regain full motion of the R arm and shoulder. Prior Functional Status Baseline Function- ADL's Independent Baseline Function- Mobility Independent Baseline Function- Recreation/Hobbies Exercises at home with weights and aerobic exercise. Current Functional Impairments (Reported) Functional Limitations- ADL's Difficulty lifting overhead. Difficulty reaching behind the back for dressing and bathing . Functional Limitations- Recreation/ Stopped exercising with Hobbies weights, has continued with aerobic exercise. Personal Factors Other Personal Factors That May Effect None Therapy/Recovery PT-OP-C Subjective Start: 06/27/18 17:30 Freq: Status: Active Protocol: Document 08/25/18 08:14 LRN (Rec: 08/25/18 09:10 LRN [id number]) OP-PT Subjective Patient Comments Patient Comments Can reach into shelves, but not the top shelf. States she can put her belt on with difficulty. She can't tuck her shirt in because of pain. One week had an ache across the shoulders for 3 days, but it felt like muscle ache, resolved with heat and self massage. Patient Reported Progress Improving PT-OP-F Manual Assessment Start: 06/27/18 17:30 Freq: Status: Active Protocol: Document 07/09/18 09:47 LRN (Rec: 07/09/18 10:35 LRN [id number]) Manual Assessments Soft Tissue Assessment Soft Tissue Mobility Assessment No tenderness in R posterior brachium or biceps in full extension. Joint Mobility Assessment Joint Mobility Assessment Shoulder PT-OP-H Neuro Start: 06/27/18 17:30 Freq: Status: Active Protocol: Document 06/30/18 15:46 LRN (Rec: 06/30/18 16:51 LRN [id number]) Sensation Evaluation Gross Sensation Gross Sensation WNL Deep Tendon Reflex & Clonus Assessment Deep Tendon Reflex Bilateral Brachioradialis Deep Tendon Reflex 2+ Normal Bilateral Tricep Deep Tendon Reflex 2+ Normal Bilateral Bicep Deep Tendon Reflex 2+ Normal PT-OP-J Posture/Palpation/Skin Start: 06/27/18 17:30 Freq: Status: Active Protocol: Document 07/09/18 09:47 LRN (Rec: 07/09/18 10:35 LRN [id number]) Palpation Assessment Location Two Palpation Location R Upper Trapezius Palpation Findings Soft Tissue Tightness Muscle Guarding Tenderness PT-OP-K Range of Motion Start: 06/27/18 17:30 Freq: Status: Active Protocol: Document 08/25/18 08:14 LRN (Rec: 08/25/18 09:10 LRN [id number]) Shoulder Goniometric Range of Motion Shoulder Measured in Degrees Left Passive Testing Position Supine Flexion 158 Extension 52 Abduction 100 External Rotation at 90 degrees 90 Abduction External Rotation at 45 degrees 80 Abduction Internal Rotation 80 Internal Rotation Behind Back (text) T3 in sitting Right Passive Testing Position Supine Flexion 155 Abduction 95 External Rotation at 90 degrees 50 Abduction Internal Rotation 42 Internal Rotation Behind Back (text) Sacrum Right Active Testing Position Supine Flexion 150 External Rotation at 90 degrees 40 Abduction Internal Rotation 40 Internal Rotation Behind Back (text) Sacrum PT-OP-L Special Tests Start: 06/27/18 17:30 Freq: Status: Active Protocol: Document 06/30/18 15:46 LRN (Rec: 06/30/18 16:51 LRN [id number]) Special Tests Other Special Tests Special Tests Cervical: Cervical Compression and Distraction: Negative. Foraminal Compression: Negative bilaterally. Shoulder: Impingement: Positive on Right with posterior brachium pain. PT-OP-M Strength Start: 06/27/18 17:30 Freq: Status: Active Protocol: Document 06/30/18 15:46 LRN (Rec: 06/30/18 16:51 LRN [id number]) Shoulder Strength Shoulder Manual Muscle Testing Right Comments Generally 2/5 due to pain. Left Reason Not Measured WFL Elbow/Forearm Strength Elbow and Forearm Manual Muscle Testing Right Reason Not Measured WFL Comments Generally 5/5 with shoulder at 90 deg's flexion. PT-OP-Q Treatments Start: 06/27/18 17:30 Freq: Status: Active Protocol: Document 08/27/18 08:55 LRN (Rec: 08/27/18 09:48 LRN [id number]) Cardio Equipment Upper Body Ergometer (UBE) Duration (Minutes) 8 RPM 70 Seat Position 9 Height 8 Other 4' fwd/bkwd Therapeutic Exercises Supine Exercises Resisted shoulder AD Side right Resistance Manual Reps/Minutes 10x Shoulder IR stretch Supine Exercise Name PROM f/b AROM Side right Shoulder ER stretch Supine Exercise Name PROM f/b AROM Side right Comments ROM msmt taken Scapular depression Supine Exercise Name LAT Pull down Side bilateral Resistance Lev 2 T-Band Equipment Used T-Band/Cane Reps/Minutes 15 x Shoulder Flex Supine Exercise Name Stretch Side right Reps/Minutes 3' Prone Exercises Shoulder IR Prone Exercise Name Hand behind back stretch f/b actively moving elbow forward Side right Reps/Minutes 3' Comments ROM msmt taken Shoulder exercise Prone Exercise Name Ext, Horiz AB, ER/IR Side right Reps/Minutes 10 x 2 each Standing Exercises Push Up Standing Exercise Name Wall push up Reps/Minutes 15x Shoulder ext Side bilateral Resistance Lev 2 T-Band Reps/Minutes 15x Row Side bilateral Resistance Lev 2 T-Band Reps/Minutes 3' Shoulder ER/IR Standing Exercise Name T-Band strengthening Side right Resistance Lev 2 T-Band Reps/Minutes 6' R shoulder IR stretch with towel Standing Exercise Name IR stretch with towel Reps/Minutes 3' Manual Therapy Treatment Joint Mobilizations Scapula Joint R Scapulae Direction Distraction Body Position Sidelying Reps/Duration 3 Neuro Re-Education Treatment Other Activities Ball Dribble Details Shoulder drop with ball dribble Reps/Duration 3' Proprioception Details Wall Ball rolls CW/CCW Self-Care/Home Management Treatment Education Patient Education Home Exercise Program Activities Self-Care/Home Management Activities Issued & reviewed HEP: Wall push ups and proprioceptive ex with ball on wall. PT-OP-R Modalities Start: 06/27/18 17:30 Freq: Status: Active Protocol: Document 08/06/18 09:50 LRN (Rec: 08/06/18 10:05 LRN [id number]) Hot Pack/Cold Pack Treatment Cold Pack Location R Shoulder Patient Position Hooklying Treatment Duration (minutes) 10 Patient Tolerance Good Comments Performed with Hot pack PT-OP-T Assessment and Plan Start: 06/27/18 17:30 Freq: Status: Active Protocol: Document 08/27/18 08:55 LRN (Rec: 08/27/18 09:48 LRN [id number]) Physical Therapy Assessment Goals Three Impairment Decreased R shoulder IR AROM/ PROM due to pain Short Term Goal (STG) Pt will demonstrated functional passive ROM of the R shoulder for reaching behind the back. STG Duration 09/14/18 (08/25/18: Goal partially met) Hot Sealing Machine Operator Goal (LTG) Pt will be able to put on her belt and tuck her shirt in the back without pain. (08/03/18: Mildly easier to put belt on) . LTG Duration 10/23/18 (08/25/18: Goal partially met) Two Impairment Decreased R active shoulder mobility due to R posterior brachium pain. Snf Goal (LTG) Pt will be able to reach overhead with mild discomfort to return to a light exercise home program. LTG Duration 08/27/18 (08/16/18) GOAL MET One Impairment Lacks appropriate self care HEP. Hot Sealing Machine Operator Goal (LTG) Pt will be independent in a HEP. LTG Duration 10/23/18 (08/25/18: Progressing with goal) Progress Towards Goals Progress Towards Goals Progressing Toward Goals Slow Progress due to Activity Tolerance Progress Comments Progressed Goal #1 HEP Assessment Summary Assessment HEP: Scalene stretch needed. R frozen shoulder presentation with ROM improvement noted. Subscapularis appears to have good mobility. Pt diagnosed with joon-menopausal frozen shoulder. Lessening signs of R shoulder impingement. Cervical involvement is not present although Scalenes are tight. Her UE neural tension is lessening. Tightness probably from cervical scaleni tightness also referring pain to her posterior upper arm. Pt has R shoulder instability & overall ?decreased scapular mobility with unusual pain presentation for a frozen shoulder. Physical Therapy Plan Frequency and Duration Frequency of Treatment 1x/Week Duration of Treatment 2 months Plan of Care Start Date 08/25/18 Plan of Care End Date 10/23/18 Next Visit Focus/Plan Next Note Type Treatment Note Next Visit Plan Continue Scalene stretch. Issue HEP of scalene stretch. Review proprioceptive ex's. Compare Subscap mobility for tightness on right. Assess ROM.
--- NOTE | 2018-08-31 10:32 | PT.OTN ---
Current Diagnoses Other enthesopathies, not elsewhere classified (08/31/18) Physical Therapy Treatment Note PT-OP-A Visit Information Start: 06/27/18 17:30 Freq: Status: Active Protocol: Document 08/31/18 09:01 LRN (Rec: 08/31/18 10:20 LRN [id number]) Out-Patient Physical Therapy Visit Information Visit Information Visit Type Treatment Note Visit Start Time 09:01 Visit Stop Time 09:45 Total Visit Minutes 44 Visit Number 12 Number of BEARING PRESS MACHINE OPERATOR Visits 0 Evaluation Information Evaluation Date 06/30/18 PT-OP-B Current Condition Start: 06/27/18 17:30 Freq: Status: Active Protocol: Document 06/30/18 15:46 LRN (Rec: 06/30/18 16:51 LRN [id number]) Current Condition History of Current Condition Onset Date 04/29/2018 Current Complaints Tightness>Pain in R posterior upper arm. Treatment Goals Patient/Caregiver Goals Pt goal is to eliminate the pain, regain full motion of the R arm and shoulder. Prior Functional Status Baseline Function- ADL's Independent Baseline Function- Mobility Independent Baseline Function- Recreation/Hobbies Exercises at home with weights and aerobic exercise. Current Functional Impairments (Reported) Functional Limitations- ADL's Difficulty lifting overhead. Difficulty reaching behind the back for dressing and bathing . Functional Limitations- Recreation/ Stopped exercising with Hobbies weights, has continued with aerobic exercise. Personal Factors Other Personal Factors That May Effect None Therapy/Recovery PT-OP-C Subjective Start: 06/27/18 17:30 Freq: Status: Active Protocol: Document 08/31/18 09:01 LRN (Rec: 08/31/18 09:43 LRN [id number]) OP-PT Subjective Patient Comments Patient Comments Motion is good, one day felt more like she had more motion, but the next day she was stiff again. Behind the back reaching is still difficult. Can no reach behind and get the belt through the middle loop. Can tuck the shirt behind the back for most of the back. PT-OP-F Manual Assessment Start: 06/27/18 17:30 Freq: Status: Active Protocol: Document 07/09/18 09:47 LRN (Rec: 07/09/18 10:35 LRN [id number]) Manual Assessments Soft Tissue Assessment Soft Tissue Mobility Assessment No tenderness in R posterior brachium or biceps in full extension. Joint Mobility Assessment Joint Mobility Assessment Shoulder PT-OP-H Neuro Start: 06/27/18 17:30 Freq: Status: Active Protocol: Document 06/30/18 15:46 LRN (Rec: 06/30/18 16:51 LRN [id number]) Sensation Evaluation Gross Sensation Gross Sensation WNL Deep Tendon Reflex & Clonus Assessment Deep Tendon Reflex Bilateral Brachioradialis Deep Tendon Reflex 2+ Normal Bilateral Tricep Deep Tendon Reflex 2+ Normal Bilateral Bicep Deep Tendon Reflex 2+ Normal PT-OP-J Posture/Palpation/Skin Start: 06/27/18 17:30 Freq: Status: Active Protocol: Document 07/09/18 09:47 LRN (Rec: 07/09/18 10:35 LRN [id number]) Palpation Assessment Location Two Palpation Location R Upper Trapezius Palpation Findings Soft Tissue Tightness Muscle Guarding Tenderness PT-OP-K Range of Motion Start: 06/27/18 17:30 Freq: Status: Active Protocol: Document 08/31/18 09:01 LRN (Rec: 08/31/18 10:29 LRN [id number]) Shoulder Goniometric Range of Motion Shoulder Measured in Degrees Left Passive Testing Position Supine Flexion 158 Extension 52 Abduction 100 External Rotation at 90 degrees 90 Abduction External Rotation at 45 degrees 80 Abduction Internal Rotation 80 Internal Rotation Behind Back (text) T3 in sitting Right Passive Testing Position Supine Flexion 155 Abduction 95 External Rotation at 90 degrees 52 Abduction Internal Rotation 42 Internal Rotation Behind Back (text) Top of Sacrum Right Active Testing Position Supine Flexion 150 External Rotation at 90 degrees 45 Abduction Internal Rotation 40 Internal Rotation Behind Back (text) Top of Sacrum PT-OP-L Special Tests Start: 06/27/18 17:30 Freq: Status: Active Protocol: Document 06/30/18 15:46 LRN (Rec: 06/30/18 16:51 LRN [id number]) Special Tests Other Special Tests Special Tests Cervical: Cervical Compression and Distraction: Negative. Foraminal Compression: Negative bilaterally. Shoulder: Impingement: Positive on Right with posterior brachium pain. PT-OP-M Strength Start: 06/27/18 17:30 Freq: Status: Active Protocol: Document 06/30/18 15:46 LRN (Rec: 06/30/18 16:51 LRN [id number]) Shoulder Strength Shoulder Manual Muscle Testing Right Comments Generally 2/5 due to pain. Left Reason Not Measured WFL Elbow/Forearm Strength Elbow and Forearm Manual Muscle Testing Right Reason Not Measured WFL Comments Generally 5/5 with shoulder at 90 deg's flexion. PT-OP-Q Treatments Start: 06/27/18 17:30 Freq: Status: Active Protocol: Document 08/31/18 09:01 LRN (Rec: 08/31/18 09:43 LRN [id number]) Cardio Equipment Upper Body Ergometer (UBE) Duration (Minutes) 10 RPM 70 Seat Position 9 Height 8 Other 5' fwd/bkwd Therapeutic Exercises Supine Exercises Shoulder IR stretch Supine Exercise Name PROM f/b AROM Side right Shoulder ER stretch Supine Exercise Name PROM f/b AROM Side right Comments ROM msmt taken Scapular depression Supine Exercise Name LAT Pull down Side bilateral Resistance Lev 2 T-Band Equipment Used T-Band/Cane Reps/Minutes 15 x 2 Shoulder Flex Supine Exercise Name Stretch f/b active shoulder flex Side right Reps/Minutes 4' UE neural glide Supine Exercise Name Standing using wall Side right Reps/Minutes 2' Standing Exercises Scalene stretch Side left Equipment Used towel Reps/Minutes 2' Push Up Standing Exercise Name Table push up Reps/Minutes 15x R shoulder IR stretch with towel Standing Exercise Name IR stretch with towel Reps/Minutes 3' Manual Therapy Treatment Soft Tissue Mobilization R UT Body Location R UT, Scalenes, Pec Minor Mobilization Type Myofascial Release Sustained Pressure Body Position Supine Neuro Re-Education Treatment Other Activities Ball Dribble Details Shoulder drop with ball dribble Reps/Duration 3' Proprioception Details Wall Ball rolls CW/CCW, added EO/EC Reps/Duration 3' PT-OP-R Modalities Start: 06/27/18 17:30 Freq: Status: Active Protocol: Document 08/06/18 09:50 LRN (Rec: 08/06/18 10:05 LRN [id number]) Hot Pack/Cold Pack Treatment Cold Pack Location R Shoulder Patient Position Hooklying Treatment Duration (minutes) 10 Patient Tolerance Good Comments Performed with Hot pack PT-OP-T Assessment and Plan Start: 06/27/18 17:30 Freq: Status: Active Protocol: Document 08/31/18 09:01 LRN (Rec: 08/31/18 09:43 LRN [id number]) Physical Therapy Assessment Goals Three Impairment Decreased R shoulder IR AROM/ PROM due to pain Short Term Goal (STG) Pt will demonstrated functional passive ROM of the R shoulder for reaching behind the back. STG Duration 09/14/18 (08/25/18: Goal partially met) Correction Goal (LTG) Pt will be able to put on her belt and tuck her shirt in the back without pain. (08/03/18: Mildly easier to put belt on) . LTG Duration 10/23/18 (08/25/18: Goal partially met) Two Impairment Decreased R active shoulder mobility due to R posterior brachium pain. Correction Goal (LTG) Pt will be able to reach overhead with mild discomfort to return to a light exercise home program. LTG Duration 08/27/18 (08/16/18) GOAL MET One Impairment Lacks appropriate self care HEP. Automotive Parts Manager Goal (LTG) Pt will be independent in a HEP. LTG Duration 10/23/18 (08/25/18: Progressing with goal) Progress Towards Goals Progress Towards Goals Progressing Toward Goals Slow Progress due to Activity Tolerance Progress Comments Progressed Goal #1 HEP Goal #2 Will start progressing exercise program. Goal #3 STG: Slowly improving LTG: Partially met. Pt able to put belt on. Almost able to tuck her shirt in with the LUE, can mostly perform functional task. Assessment Summary Assessment Pt has good understanding of HEP Scalene stretch after review. R frozen shoulder presentation with ROM improvement noted. Pt diagnosed with joon-menopausal frozen shoulder. Lessening signs of R shoulder impingement. Cervical involvement is not present although Scalenes are tight. UE neural tension is present. Tightness from cervical scaleni pec minor tightness also referring pain to her posterior upper arm. Pt has R shoulder instability & overall ?decreased scapular mobility with unusual pain presentation for a frozen shoulder. Physical Therapy Plan Frequency and Duration Frequency of Treatment 1x/Week Duration of Treatment 2 months Plan of Care Start Date 08/25/18 Plan of Care End Date 10/23/18 Next Visit Focus/Plan Next Note Type Treatment Note Next Visit Plan Continue Scalene stretch. Compare Subscap mobility for tightness left vs right. Assess ROM. Progress strengthening.
--- NOTE | 2018-08-31 12:34 | PT.OTN ---
Current Diagnoses Other enthesopathies, not elsewhere classified (08/31/18) Physical Therapy Treatment Note PT-OP-A Visit Information Start: 06/27/18 17:30 Freq: Status: Active Protocol: Document 08/31/18 09:01 LRN (Rec: 08/31/18 10:20 LRN [id number]) Out-Patient Physical Therapy Visit Information Visit Information Visit Type Treatment Note Visit Start Time 09:01 Visit Stop Time 09:45 Total Visit Minutes 44 Visit Number 12 Number of DRILL SETUP OPERATOR Visits 0 Evaluation Information Evaluation Date 06/30/18 PT-OP-B Current Condition Start: 06/27/18 17:30 Freq: Status: Active Protocol: Document 06/30/18 15:46 LRN (Rec: 06/30/18 16:51 LRN [id number]) Current Condition History of Current Condition Onset Date 04/29/2018 Current Complaints Tightness>Pain in R posterior upper arm. Treatment Goals Patient/Caregiver Goals Pt goal is to eliminate the pain, regain full motion of the R arm and shoulder. Prior Functional Status Baseline Function- ADL's Independent Baseline Function- Mobility Independent Baseline Function- Recreation/Hobbies Exercises at home with weights and aerobic exercise. Current Functional Impairments (Reported) Functional Limitations- ADL's Difficulty lifting overhead. Difficulty reaching behind the back for dressing and bathing . Functional Limitations- Recreation/ Stopped exercising with Hobbies weights, has continued with aerobic exercise. Personal Factors Other Personal Factors That May Effect None Therapy/Recovery PT-OP-C Subjective Start: 06/27/18 17:30 Freq: Status: Active Protocol: Document 08/31/18 09:01 LRN (Rec: 08/31/18 09:43 LRN [id number]) OP-PT Subjective Patient Comments Patient Comments Motion is good, one day felt more like she had more motion, but the next day she was stiff again. Behind the back reaching is still difficult. Can no reach behind and get the belt through the middle loop. Can tuck the shirt behind the back for most of the back. PT-OP-F Manual Assessment Start: 06/27/18 17:30 Freq: Status: Active Protocol: Document 07/09/18 09:47 LRN (Rec: 07/09/18 10:35 LRN [id number]) Manual Assessments Soft Tissue Assessment Soft Tissue Mobility Assessment No tenderness in R posterior brachium or biceps in full extension. Joint Mobility Assessment Joint Mobility Assessment Shoulder PT-OP-H Neuro Start: 06/27/18 17:30 Freq: Status: Active Protocol: Document 06/30/18 15:46 LRN (Rec: 06/30/18 16:51 LRN [id number]) Sensation Evaluation Gross Sensation Gross Sensation WNL Deep Tendon Reflex & Clonus Assessment Deep Tendon Reflex Bilateral Brachioradialis Deep Tendon Reflex 2+ Normal Bilateral Tricep Deep Tendon Reflex 2+ Normal Bilateral Bicep Deep Tendon Reflex 2+ Normal PT-OP-J Posture/Palpation/Skin Start: 06/27/18 17:30 Freq: Status: Active Protocol: Document 07/09/18 09:47 LRN (Rec: 07/09/18 10:35 LRN [id number]) Palpation Assessment Location Two Palpation Location R Upper Trapezius Palpation Findings Soft Tissue Tightness Muscle Guarding Tenderness PT-OP-K Range of Motion Start: 06/27/18 17:30 Freq: Status: Active Protocol: Document 08/31/18 09:01 LRN (Rec: 08/31/18 10:29 LRN [id number]) Shoulder Goniometric Range of Motion Shoulder Measured in Degrees Left Passive Testing Position Supine Flexion 158 Extension 52 Abduction 100 External Rotation at 90 degrees 90 Abduction External Rotation at 45 degrees 80 Abduction Internal Rotation 80 Internal Rotation Behind Back (text) T3 in sitting Right Passive Testing Position Supine Flexion 155 Abduction 95 External Rotation at 90 degrees 52 Abduction Internal Rotation 42 Internal Rotation Behind Back (text) Top of Sacrum Right Active Testing Position Supine Flexion 150 External Rotation at 90 degrees 45 Abduction Internal Rotation 40 Internal Rotation Behind Back (text) Top of Sacrum PT-OP-L Special Tests Start: 06/27/18 17:30 Freq: Status: Active Protocol: Document 06/30/18 15:46 LRN (Rec: 06/30/18 16:51 LRN [id number]) Special Tests Other Special Tests Special Tests Cervical: Cervical Compression and Distraction: Negative. Foraminal Compression: Negative bilaterally. Shoulder: Impingement: Positive on Right with posterior brachium pain. PT-OP-M Strength Start: 06/27/18 17:30 Freq: Status: Active Protocol: Document 06/30/18 15:46 LRN (Rec: 06/30/18 16:51 LRN [id number]) Shoulder Strength Shoulder Manual Muscle Testing Right Comments Generally 2/5 due to pain. Left Reason Not Measured WFL Elbow/Forearm Strength Elbow and Forearm Manual Muscle Testing Right Reason Not Measured WFL Comments Generally 5/5 with shoulder at 90 deg's flexion. PT-OP-Q Treatments Start: 06/27/18 17:30 Freq: Status: Active Protocol: Document 08/31/18 09:01 LRN (Rec: 08/31/18 09:43 LRN [id number]) Cardio Equipment Upper Body Ergometer (UBE) Duration (Minutes) 10 RPM 70 Seat Position 9 Height 8 Other 5' fwd/bkwd Therapeutic Exercises Supine Exercises Shoulder IR stretch Supine Exercise Name PROM f/b AROM Side right Shoulder ER stretch Supine Exercise Name PROM f/b AROM Side right Comments ROM msmt taken Scapular depression Supine Exercise Name LAT Pull down Side bilateral Resistance Lev 2 T-Band Equipment Used T-Band/Cane Reps/Minutes 15 x 2 Shoulder Flex Supine Exercise Name Stretch f/b active shoulder flex Side right Reps/Minutes 4' UE neural glide Supine Exercise Name Standing using wall Side right Reps/Minutes 2' Standing Exercises Scalene stretch Side left Equipment Used towel Reps/Minutes 2' Push Up Standing Exercise Name Table push up Reps/Minutes 15x R shoulder IR stretch with towel Standing Exercise Name IR stretch with towel Reps/Minutes 3' Median N. [place] Standing Exercise Name Median n. glide Side right Reps/Minutes 2' Manual Therapy Treatment Soft Tissue Mobilization R UT Body Location R UT, Scalenes, Pec Minor Mobilization Type Myofascial Release Sustained Pressure Body Position Supine Neuro Re-Education Treatment Other Activities Ball Dribble Details Shoulder drop with ball dribble Reps/Duration 3' Proprioception Details Wall Ball rolls CW/CCW, added EO/EC Reps/Duration 3' PT-OP-R Modalities Start: 06/27/18 17:30 Freq: Status: Active Protocol: Document 08/06/18 09:50 LRN (Rec: 08/06/18 10:05 LRN [id number]) Hot Pack/Cold Pack Treatment Cold Pack Location R Shoulder Patient Position Hooklying Treatment Duration (minutes) 10 Patient Tolerance Good Comments Performed with Hot pack PT-OP-T Assessment and Plan Start: 06/27/18 17:30 Freq: Status: Active Protocol: Document 08/31/18 09:01 LRN (Rec: 08/31/18 09:43 LRN [id number]) Physical Therapy Assessment Goals Three Impairment Decreased R shoulder IR AROM/ PROM due to pain Short Term Goal (STG) Pt will demonstrated functional passive ROM of the R shoulder for reaching behind the back. STG Duration 09/14/18 (08/25/18: Goal partially met) Automotive Service Porter Goal (LTG) Pt will be able to put on her belt and tuck her shirt in the back without pain. (08/03/18: Mildly easier to put belt on) . LTG Duration 10/23/18 (08/25/18: Goal partially met) Two Impairment Decreased R active shoulder mobility due to R posterior brachium pain. Automotive Service Porter Goal (LTG) Pt will be able to reach overhead with mild discomfort to return to a light exercise home program. LTG Duration 08/27/18 (08/16/18) GOAL MET One Impairment Lacks appropriate self care HEP. Automotive Service Porter Goal (LTG) Pt will be independent in a HEP. LTG Duration 10/23/18 (08/25/18: Progressing with goal) Progress Towards Goals Progress Towards Goals Progressing Toward Goals Slow Progress due to Activity Tolerance Progress Comments Progressed Goal #1 HEP Goal #2 Will start progressing exercise program. Goal #3 STG: Slowly improving LTG: Partially met. Pt able to put belt on. Almost able to tuck her shirt in with the LUE, can mostly perform functional task. Assessment Summary Assessment Pt has good understanding of HEP Scalene stretch after review. R frozen shoulder presentation with ROM improvement noted. Pt diagnosed with joon-menopausal frozen shoulder. Lessening signs of R shoulder impingement. Cervical involvement is not present although Scalenes are tight. UE neural tension is present. Tightness from cervical scaleni pec minor tightness also referring pain to her posterior upper arm. Pt has R shoulder instability & overall ?decreased scapular mobility with unusual pain presentation for a frozen shoulder. Physical Therapy Plan Frequency and Duration Frequency of Treatment 1x/Week Duration of Treatment 2 months Plan of Care Start Date 08/25/18 Plan of Care End Date 10/23/18 Next Visit Focus/Plan Next Note Type Treatment Note Next Visit Plan Continue Scalene stretch. Compare Subscap mobility for tightness left vs right. Recheck ROM & Strength & QuickDASH/Pain grid. Progress strengthening.
--- NOTE | 2018-09-14 12:42 | PT.OTN ---
Current Diagnoses Other enthesopathies, not elsewhere classified (09/14/18) Physical Therapy Treatment Note PT-OP-A Visit Information Start: 06/27/18 17:30 Freq: Status: Active Protocol: Document 09/14/18 10:26 EA (Rec: 09/14/18 10:33 EA [id number]) Out-Patient Physical Therapy Visit Information Visit Information Visit Type Treatment Note Visit Start Time 09:01 Visit Stop Time 09:55 Total Visit Minutes 55 Visit Number 13 Number of TOBACCO SCRAP SIFTER Visits 0 PT-OP-B Current Condition Start: 06/27/18 17:30 Freq: Status: Active Protocol: Document 06/30/18 15:46 LRN (Rec: 06/30/18 16:51 LRN [id number]) Current Condition History of Current Condition Onset Date 04/29/2018 Current Complaints Tightness>Pain in R posterior upper arm. Treatment Goals Patient/Caregiver Goals Pt goal is to eliminate the pain, regain full motion of the R arm and shoulder. Prior Functional Status Baseline Function- ADL's Independent Baseline Function- Mobility Independent Baseline Function- Recreation/Hobbies Exercises at home with weights and aerobic exercise. Current Functional Impairments (Reported) Functional Limitations- ADL's Difficulty lifting overhead. Difficulty reaching behind the back for dressing and bathing . Functional Limitations- Recreation/ Stopped exercising with Hobbies weights, has continued with aerobic exercise. Personal Factors Other Personal Factors That May Effect None Therapy/Recovery PT-OP-C Subjective Start: 06/27/18 17:30 Freq: Status: Active Protocol: Document 09/14/18 10:26 EA (Rec: 09/14/18 10:33 EA [id number]) OP-PT Subjective Patient Comments Patient Comments Pt reports slowly getting better; states compliants with HEP and 3 x /wk of cardion exercises PT-OP-F Manual Assessment Start: 06/27/18 17:30 Freq: Status: Active Protocol: Document 07/09/18 09:47 LRN (Rec: 07/09/18 10:35 LRN [id number]) Manual Assessments Soft Tissue Assessment Soft Tissue Mobility Assessment No tenderness in R posterior brachium or biceps in full extension. Joint Mobility Assessment Joint Mobility Assessment Shoulder PT-OP-H Neuro Start: 06/27/18 17:30 Freq: Status: Active Protocol: Document 06/30/18 15:46 LRN (Rec: 12/04/18 16:51 LRN [id number]) Sensation Evaluation Gross Sensation Gross Sensation WNL Deep Tendon Reflex & Clonus Assessment Deep Tendon Reflex Bilateral Brachioradialis Deep Tendon Reflex 2+ Normal Bilateral Tricep Deep Tendon Reflex 2+ Normal Bilateral Bicep Deep Tendon Reflex 2+ Normal PT-OP-J Posture/Palpation/Skin Start: 06/27/18 17:30 Freq: Status: Active Protocol: Document 07/09/18 09:47 LRN (Rec: 07/09/18 10:35 LRN [id number]) Palpation Assessment Location Two Palpation Location R Upper Trapezius Palpation Findings Soft Tissue Tightness Muscle Guarding Tenderness PT-OP-K Range of Motion Start: 06/27/18 17:30 Freq: Status: Active Protocol: Document 08/31/18 09:01 LRN (Rec: 08/31/18 10:29 LRN [id number]) Shoulder Goniometric Range of Motion Shoulder Measured in Degrees Left Passive Testing Position Supine Flexion 158 Extension 52 Abduction 100 External Rotation at 90 degrees 90 Abduction External Rotation at 45 degrees 80 Abduction Internal Rotation 80 Internal Rotation Behind Back (text) T3 in sitting Right Passive Testing Position Supine Flexion 155 Abduction 95 External Rotation at 90 degrees 52 Abduction Internal Rotation 42 Internal Rotation Behind Back (text) Top of Sacrum Right Active Testing Position Supine Flexion 150 External Rotation at 90 degrees 45 Abduction Internal Rotation 40 Internal Rotation Behind Back (text) Top of Sacrum PT-OP-L Special Tests Start: 06/27/18 17:30 Freq: Status: Active Protocol: Document 06/30/18 15:46 LRN (Rec: 06/30/18 16:51 LRN [id number]) Special Tests Other Special Tests Special Tests Cervical: Cervical Compression and Distraction: Negative. Foraminal Compression: Negative bilaterally. Shoulder: Impingement: Positive on Right with posterior brachium pain. PT-OP-M Strength Start: 06/27/18 17:30 Freq: Status: Active Protocol: Document 06/30/18 15:46 LRN (Rec: 06/30/18 16:51 LRN [id number]) Shoulder Strength Shoulder Manual Muscle Testing Right Comments Generally 2/5 due to pain. Left Reason Not Measured WFL Elbow/Forearm Strength Elbow and Forearm Manual Muscle Testing Right Reason Not Measured WFL Comments Generally 5/5 with shoulder at 90 deg's flexion. PT-OP-Q Treatments Start: 06/27/18 17:30 Freq: Status: Active Protocol: Document 09/14/18 10:26 EA (Rec: 09/14/18 10:33 EA [id number]) Cardio Equipment Upper Body Ergometer (UBE) Duration (Minutes) 8 RPM 70 Seat Position 9 Height 8 Other 4' fwd/bkwd Therapeutic Exercises Supine Exercises Resisted shoulder AD Side right Resistance Manual Reps/Minutes 10x Comments hold relax active cotx Shoulder IR stretch Supine Exercise Name PROM f/b AROM Side right Shoulder ER stretch Supine Exercise Name PROM f/b AROM Side right Comments ROM msmt taken Scapular depression Supine Exercise Name LAT Pull down Side bilateral Resistance Lev 2 T-Band Equipment Used T-Band/Cane Reps/Minutes 15 x 2 Shoulder Flex Supine Exercise Name Stretch f/b active shoulder flex Side right Reps/Minutes 4' Standing Exercises Scalene stretch Side left Equipment Used towel Reps/Minutes 2' Other Exercises 1 Other Exercise Name Wall slides: flexion and Y Reps/Minutes x 10 reps x 2 sets at 5SH in up position Manual Therapy Treatment Joint Mobilizations 1 Joint GH Direction Post/Inf Grade II Body Position Supine PT-OP-R Modalities Start: 06/27/18 17:30 Freq: Status: Active Protocol: Document 09/14/18 10:26 EA (Rec: 09/14/18 10:33 EA [id number]) Hot Pack/Cold Pack Treatment Cold Pack Location R Shoulder Patient Position Hooklying Treatment Duration (minutes) 15 Patient Tolerance Good PT-OP-T Assessment and Plan Start: 06/27/18 17:30 Freq: Status: Active Protocol: Document 09/14/18 10:26 EA (Rec: 09/14/18 10:33 EA [id number]) Physical Therapy Assessment Assessment Summary Assessment Pt still limited with ROM but improve mild with joint mob and CHR passive stretch. Physical Therapy Plan Next Visit Focus/Plan Next Note Type Treatment Note Next Visit Plan consider deep heating prior to joint mob as ROM still limited in ABD/ER/IR.
--- NOTE | 2018-09-22 10:15 | PT.OTN ---
Current Diagnoses Other enthesopathies, not elsewhere classified (09/22/18) Physical Therapy Treatment Note PT-OP-A Visit Information Start: 06/27/18 17:30 Freq: Status: Active Protocol: Document 09/22/18 09:03 LRN (Rec: 09/22/18 09:50 LRN [id number]) Out-Patient Physical Therapy Visit Information Visit Information Visit Type Discharge Summary Visit Start Time 09:03 Visit Stop Time 09:59 Total Visit Minutes 56 Visit Number 14 Number of POWERHOUSE MECHANIC SUPERVISOR Visits 0 Evaluation Information Evaluation Date 06/30/18 PT-OP-B Current Condition Start: 06/27/18 17:30 Freq: Status: Active Protocol: Document 06/30/18 15:46 LRN (Rec: 06/30/18 16:51 LRN [id number]) Current Condition History of Current Condition Onset Date 04/29/2018 Current Complaints Tightness>Pain in R posterior upper arm. Treatment Goals Patient/Caregiver Goals Pt goal is to eliminate the pain, regain full motion of the R arm and shoulder. Prior Functional Status Baseline Function- ADL's Independent Baseline Function- Mobility Independent Baseline Function- Recreation/Hobbies Exercises at home with weights and aerobic exercise. Current Functional Impairments (Reported) Functional Limitations- ADL's Difficulty lifting overhead. Difficulty reaching behind the back for dressing and bathing . Functional Limitations- Recreation/ Stopped exercising with Hobbies weights, has continued with aerobic exercise. Personal Factors Other Personal Factors That May Effect None Therapy/Recovery PT-OP-C Subjective Start: 06/27/18 17:30 Freq: Status: Active Protocol: Document 09/22/18 09:03 LRN (Rec: 09/22/18 09:50 LRN [id number]) OP-PT Subjective Patient Comments Patient Comments Continues to get better. Had one episode of neck and shoulder muscle tightness that lasted 4 days. Can do pretty much everything that needs to get done. PT-OP-F Manual Assessment Start: 06/27/18 17:30 Freq: Status: Active Protocol: Document 07/09/18 09:47 LRN (Rec: 07/09/18 10:35 LRN [id number]) Manual Assessments Soft Tissue Assessment Soft Tissue Mobility Assessment No tenderness in R posterior brachium or biceps in full extension. Joint Mobility Assessment Joint Mobility Assessment Shoulder PT-OP-H Neuro Start: 06/27/18 17:30 Freq: Status: Active Protocol: Document 06/30/18 15:46 LRN (Rec: 06/30/18 16:51 LRN [id number]) Sensation Evaluation Gross Sensation Gross Sensation WNL Deep Tendon Reflex & Clonus Assessment Deep Tendon Reflex Bilateral Brachioradialis Deep Tendon Reflex 2+ Normal Bilateral Tricep Deep Tendon Reflex 2+ Normal Bilateral Bicep Deep Tendon Reflex 2+ Normal PT-OP-J Posture/Palpation/Skin Start: 06/27/18 17:30 Freq: Status: Active Protocol: Document 07/09/18 09:47 LRN (Rec: 07/09/18 10:35 LRN [id number]) Palpation Assessment Location Two Palpation Location R Upper Trapezius Palpation Findings Soft Tissue Tightness Muscle Guarding Tenderness PT-OP-K Range of Motion Start: 06/27/18 17:30 Freq: Status: Active Protocol: Document 09/22/18 09:03 LRN (Rec: 09/22/18 09:50 LRN [id number]) Shoulder Goniometric Range of Motion Shoulder Measured in Degrees Right Passive Testing Position Supine Flexion 154 External Rotation at 90 degrees 62 Abduction Internal Rotation 50 Internal Rotation Behind Back (text) L1 Right Active Testing Position Supine Flexion 153 External Rotation at 90 degrees 58 Abduction Internal Rotation 45 Internal Rotation Behind Back (text) L3 PT-OP-L Special Tests Start: 06/27/18 17:30 Freq: Status: Active Protocol: Document 06/30/18 15:46 LRN (Rec: 06/30/18 16:51 LRN [id number]) Special Tests Other Special Tests Special Tests Cervical: Cervical Compression and Distraction: Negative. Foraminal Compression: Negative bilaterally. Shoulder: Impingement: Positive on Right with posterior brachium pain. PT-OP-M Strength Start: 06/27/18 17:30 Freq: Status: Active Protocol: Document 09/22/18 09:03 LRN (Rec: 09/22/18 09:58 LRN [id number]) Shoulder Strength Shoulder Manual Muscle Testing Right Flexion 5 Normal Abduction (C5) 2 Poor External Rotation 2 Poor Internal Rotation 5 Normal Left Reason Not Measured WFL PT-OP-Q Treatments Start: 06/27/18 17:30 Freq: Status: Active Protocol: Document 09/22/18 09:03 LRN (Rec: 09/22/18 09:50 LRN [id number]) Cardio Equipment Upper Body Ergometer (UBE) Duration (Minutes) 10 RPM 70 Seat Position 9 Height 8 Other fwd Therapeutic Exercises Supine Exercises Shoulder AD stretch Side right Reps/Minutes 2' Shoulder IR stretch Supine Exercise Name PROM f/b AROM Side right Shoulder ER stretch Supine Exercise Name PROM f/b AROM Side right Comments ROM msmt taken Shoulder Flex Supine Exercise Name Stretch f/b active shoulder flex Side right Reps/Minutes 4' Sidelying Exercises Sleeper stretch Side right Reps/Minutes 3' Comments Arm at 90 deg's Sitting Exercises Overhead Ruthie Sitting Exercise Name Flexion Side right Equipment Used Ruthie Reps/Minutes 1' x 2 Standing Exercises R shoulder IR stretch with towel Standing Exercise Name IR stretch with towel Reps/Minutes 2' Manual Therapy Treatment Joint Mobilizations 1 Joint GH Direction Post/Inf Grade II Body Position Supine Self-Care/Home Management Treatment Education Patient Education Home Exercise Program Activities Self-Care/Home Management Activities I/S pt to focus on ROM: shoulder flex with elbow straight, ER, and horiz AD, and strengthening ER/IR/ scapular depression. PT-OP-R Modalities Start: 06/27/18 17:30 Freq: Status: Active Protocol: Document 09/22/18 09:03 LRN (Rec: 09/22/18 09:58 [facility] [id number]) Hot Pack/Cold Pack Treatment Cold Pack Location R Shoulder Patient Position Hooklying Treatment Duration (minutes) 15 Patient Tolerance Good PT-OP-T Assessment and Plan Start: 06/27/18 17:30 Freq: Status: Active Protocol: Document 09/22/18 09:03 LRN (Rec: 09/22/18 09:50 N [id number]) Physical Therapy Assessment Goals Three Impairment Decreased R shoulder IR AROM/ PROM due to pain Short Term Goal (STG) Pt will demonstrated functional passive ROM of the R shoulder for reaching behind the back. STG Duration 09/14/18 (08/25/18: Goal partially met) Fire Crew Specialist Goal (LTG) Pt will be able to put on her belt and tuck her shirt in the back without pain. (08/03/18: Mildly easier to put belt on) . LTG Duration 10/23/18 (08/25/18: Goal partially met) Two Impairment Decreased R active shoulder mobility due to R posterior brachium pain. Fire Crew Specialist Goal (LTG) Pt will be able to reach overhead with mild discomfort to return to a light exercise home program. LTG Duration 08/27/18 (08/16/18) GOAL MET One Impairment Lacks appropriate self care HEP. Jail Goal (LTG) Pt will be independent in a HEP. LTG Duration 10/23/18 (08/25/18: Progressing with goal) Progress Towards Goals Progress Towards Goals Progressing Toward Goals Slow Progress due to Activity Tolerance Progress Comments Goal #1 HEP progressing. Goal #2 Pt is on a strengthening HEP. Goal #3 STG: Improving, see ROM. LTG: Partially met. Pt able to put belt on. Almost able to tuck her shirt in with the LUE, can mostly perform functional task. Assessment Summary Assessment R frozen shoulder with ROM improvement noted on HEP. Pt diagnosed with joon-menopausal frozen shoulder. Signs of R shoulder impingement. Cervical involvement is not present although Scalenes are tight. Tightness from cervical scaleni, pec minor, and UE neural tension also referring pain to her posterior upper arm. Pt has R shoulder ?decreased scapular mobility. Limited flex, ABD, ER, horiz AD Physical Therapy Plan Frequency and Duration Frequency of Treatment 1x/Week Duration of Treatment 2 months Plan of Care Start Date 08/25/18 Plan of Care End Date 10/23/18 Next Visit Focus/Plan Next Note Type Treatment Note Next Visit Plan Consider Deep heating prior to joint mob as ROM still limited in ABD/ER/IR. Two more visits for maximizing ROM and educating pt on self care . Recheck scalene stretch, scapular mobility, QuickDASH/ Pain grid. Assess functional goals.
--- NOTE | 2018-10-05 15:17 | PT.OPPN ---
Current Diagnoses Other enthesopathies, not elsewhere classified (10/05/18) Physical Therapy Progress Note PT-OP-A Visit Information Start: 06/27/18 17:30 Freq: Status: Active Protocol: Document 10/05/18 09:02 LRN (Rec: 10/05/18 09:50 LRN [id number]) Out-Patient Physical Therapy Visit Information Visit Information Visit Type Progress Note Visit Start Time 09:02 Visit Stop Time 09:50 Total Visit Minutes 48 Visit Number 16 Number of APPLIED COMPUTER SCIENCE PROFESSOR Visits 0 Evaluation Information Evaluation Date 06/30/18 PT-OP-B Current Condition Start: 06/27/18 17:30 Freq: Status: Active Protocol: Document 06/30/18 15:46 LRN (Rec: 06/30/18 16:51 LRN [id number]) Current Condition History of Current Condition Onset Date 04/29/2018 Current Complaints Tightness>Pain in R posterior upper arm. Treatment Goals Patient/Caregiver Goals Pt goal is to eliminate the pain, regain full motion of the R arm and shoulder. Prior Functional Status Baseline Function- ADL's Independent Baseline Function- Mobility Independent Baseline Function- Recreation/Hobbies Exercises at home with weights and aerobic exercise. Current Functional Impairments (Reported) Functional Limitations- ADL's Difficulty lifting overhead. Difficulty reaching behind the back for dressing and bathing . Functional Limitations- Recreation/ Stopped exercising with Hobbies weights, has continued with aerobic exercise. Personal Factors Other Personal Factors That May Effect None Therapy/Recovery PT-OP-C Subjective Start: 06/27/18 17:30 Freq: Status: Active Protocol: Document 10/05/18 09:02 LRN (Rec: 10/05/18 09:50 LRN [id number]) OP-PT Subjective Patient Comments Patient Comments Not as sore; therefore thinks ultrasound must have helped. PT-OP-F Manual Assessment Start: 06/27/18 17:30 Freq: Status: Active Protocol: Document 07/09/18 09:47 LRN (Rec: 07/09/18 10:35 LRN [id number]) Manual Assessments Soft Tissue Assessment Soft Tissue Mobility Assessment No tenderness in R posterior brachium or biceps in full extension. Joint Mobility Assessment Joint Mobility Assessment Shoulder PT-OP-H Neuro Start: 06/27/18 17:30 Freq: Status: Active Protocol: Document 06/30/18 15:46 LRN (Rec: 06/30/18 16:51 LRN [id number]) Sensation Evaluation Gross Sensation Gross Sensation WNL Deep Tendon Reflex & Clonus Assessment Deep Tendon Reflex Bilateral Brachioradialis Deep Tendon Reflex 2+ Normal Bilateral Tricep Deep Tendon Reflex 2+ Normal Bilateral Bicep Deep Tendon Reflex 2+ Normal PT-OP-J Posture/Palpation/Skin Start: 06/27/18 17:30 Freq: Status: Active Protocol: Document 07/09/18 09:47 LRN (Rec: 07/09/18 10:35 LRN [id number]) Palpation Assessment Location Two Palpation Location R Upper Trapezius Palpation Findings Soft Tissue Tightness Muscle Guarding Tenderness PT-OP-K Range of Motion Start: 06/27/18 17:30 Freq: Status: Active Protocol: Document 09/22/18 09:03 LRN (Rec: 09/22/18 09:50 LRN [id number]) Shoulder Goniometric Range of Motion Shoulder Measured in Degrees Right Passive Testing Position Supine Flexion 154 External Rotation at 90 degrees 62 Abduction Internal Rotation 50 Internal Rotation Behind Back (text) L1 Right Active Testing Position Supine Flexion 153 External Rotation at 90 degrees 58 Abduction Internal Rotation 45 Internal Rotation Behind Back (text) L3 PT-OP-L Special Tests Start: 06/27/18 17:30 Freq: Status: Active Protocol: Document 06/30/18 15:46 LRN (Rec: 06/30/18 16:51 LRN [id number]) Special Tests Other Special Tests Special Tests Cervical: Cervical Compression and Distraction: Negative. Foraminal Compression: Negative bilaterally. Shoulder: Impingement: Positive on Right with posterior brachium pain. PT-OP-M Strength Start: 06/27/18 17:30 Freq: Status: Active Protocol: Document 09/22/18 09:03 LRN (Rec: 09/22/18 09:58 LRN [id number]) Shoulder Strength Shoulder Manual Muscle Testing Right Flexion 5 Normal Abduction (C5) 2 Poor External Rotation 2 Poor Internal Rotation 5 Normal Left Reason Not Measured WFL PT-OP-T Assessment and Plan Start: 06/27/18 17:30 Freq: Status: Active Protocol: Document 10/05/18 09:02 LRN (Rec: 10/05/18 09:50 LRN [id number]) Physical Therapy Assessment Rehab Potential Rehabilitation Potential Excellent Evaluation Complexity Number of Personal Factors/Comorbidities 0 Number of Body Systems Impaired 3 Clinical Presentation at Evaluation Evolving Impairments Impairments Functional Activities Pain ROM Strength Other Impairments Impairment of R shoulder Goals Three Impairment Decreased R shoulder IR AROM/ PROM due to pain Short Term Goal (STG) Pt will demonstrated functional passive ROM of the R shoulder for reaching behind the back. STG Duration 09/14/18 (08/25/18: Goal partially met) Kiln Firer Goal (LTG) Pt will be able to put on her belt and tuck her shirt in the back without pain. (08/03/18: Mildly easier to put belt on and tuck shirt in). LTG Duration 10/23/18 (08/25/18: Goal partially met) Two Impairment Decreased R active shoulder mobility due to R posterior brachium pain. Skilled Nursing Goal (LTG) Pt will be able to reach overhead with mild discomfort to return to a light exercise home program. LTG Duration 08/27/18 (08/16/18) GOAL MET One Impairment Lacks appropriate self care HEP. Skilled Nursing Goal (LTG) Pt will be independent in a HEP. LTG Duration 10/23/18 (08/25/18: Progressing with goal) Progress Towards Goals Progress Towards Goals Progressing Toward Goals Slow Progress due to Activity Tolerance Progress Comments Goal #1: HEP progressing Goal #2: Reaching goal MET Goal #3 LTG: ROM Improving, partially met. Pt able to put belt on and tuck her shirt in with the LUE with much difficulty. Assessment Summary Assessment R frozen shoulder. Pt tolerated R shoulder ROM and stretching with greater ease of movement with lesser time between appointments; therfore pt would benefit from increasing therapy to 2x/week to achieve functional mobility sooner. She has less soreness; therefore use of US appears helpful. Pt diagnosed with joon-menopausal frozen shoulder and has signs of R shoulder impingement with decreased joint mobility. Pt has had tightness from cervical scaleni, pec minor, and UE neural tension referring pain to her posterior upper arm. Limited flex, ABD, ER, horiz AD. Physical Therapy Plan Frequency and Duration Frequency of Treatment 2x/Week Plan of Care Start Date 10/05/18 Plan of Care End Date 11/23/18 Therapeutic Interventions Therapeutic Interventions Home Exercise Program Manual Therapy Patient/Caregiver Education Self-Care/Home Management Soft Tissue Mobilization Taping Therapeutic Exercises Modalities Cold Pack/Ice Massage Electric Stimulation Hot Packs Ultrasound Next Visit Focus/Plan Next Note Type Treatment Note Next Visit Plan Cont 2x/week due to lack of progress at 1x/2 weeks and slow improvement at 1x/week. More visits for maximizing ROM , mobility and educating pt on self care. Recheck scalene stretch, scapular mobility, QuickDASH/Pain grid. Assess functional goals other than dressing goals.
--- NOTE | 2018-10-05 15:18 | PT.OPPOC ---
Current Diagnoses Other enthesopathies, not elsewhere classified (10/05/18) Provider Visit Care Team Role Provider Type Chris Gan MD Primary Care Provider Physician Specialty: Family Practice Address: [address] [place] [address], [id number] Email: [email or web address] DENNY Camejo Attending Provider Advanced Collet Driller Specialty: Family Practice Address: [facility] [facility], [place], [address] Email: [email or web address] Plan Of Care PT-OP-T Assessment and Plan Start: 06/27/18 17:30 Freq: Status: Active Protocol: Document 10/05/18 09:02 LRN (Rec: 10/05/18 09:50 LRN [id number]) Physical Therapy Assessment Rehab Potential Rehabilitation Potential Excellent Evaluation Complexity Number of Personal Factors/Comorbidities 0 Number of Body Systems Impaired 3 Clinical Presentation at Evaluation Evolving Impairments Impairments Functional Activities Pain ROM Strength Other Impairments Impairment of R shoulder Goals Three Impairment Decreased R shoulder IR AROM/ PROM due to pain Short Term Goal (STG) Pt will demonstrated functional passive ROM of the R shoulder for reaching behind the back. STG Duration 09/14/18 (08/25/18: Goal partially met) Penitentiary Goal (LTG) Pt will be able to put on her belt and tuck her shirt in the back without pain. (08/03/18: Mildly easier to put belt on and tuck shirt in). LTG Duration 10/23/18 (08/25/18: Goal partially met) Two Impairment Decreased R active shoulder mobility due to R posterior brachium pain. Penitentiary Goal (LTG) Pt will be able to reach overhead with mild discomfort to return to a light exercise home program. LTG Duration 08/27/18 (08/16/18) GOAL MET One Impairment Lacks appropriate self care HEP. Penitentiary Goal (LTG) Pt will be independent in a HEP. LTG Duration 10/23/18 (08/25/18: Progressing with goal) Progress Towards Goals Progress Towards Goals Progressing Toward Goals Slow Progress due to Activity Tolerance Progress Comments Goal #1: HEP progressing Goal #2: Reaching goal MET Goal #3 LTG: ROM Improving, partially met. Pt able to put belt on and tuck her shirt in with the LUE with much difficulty. Assessment Summary Assessment R frozen shoulder. Pt tolerated R shoulder ROM and stretching with greater ease of movement with lesser time between appointments; therfore pt would benefit from increasing therapy to 2x/week to achieve functional mobility sooner. She has less soreness; therefore use of US appears helpful. Pt diagnosed with joon-menopausal frozen shoulder and has signs of R shoulder impingement with decreased joint mobility. Pt has had tightness from cervical scaleni, pec minor, and UE neural tension referring pain to her posterior upper arm. Limited flex, ABD, ER, horiz AD. Physical Therapy Plan Frequency and Duration Frequency of Treatment 2x/Week Plan of Care Start Date 10/05/18 Plan of Care End Date 11/23/18 Therapeutic Interventions Therapeutic Interventions Home Exercise Program Manual Therapy Patient/Caregiver Education Self-Care/Home Management Soft Tissue Mobilization Taping Therapeutic Exercises Modalities Cold Pack/Ice Massage Electric Stimulation Hot Packs Ultrasound Next Visit Focus/Plan Next Note Type Treatment Note Next Visit Plan Cont 2x/week due to lack of progress at 1x/2 weeks and slow improvement at 1x/week. More visits for maximizing ROM , mobility and educating pt on self care. Recheck scalene stretch, scapular mobility, QuickDASH/Pain grid. Assess functional goals other than dressing goals. Plan of Care Dates Plan of Care Start Date 10/05/18 Plan of Care End Date 11/23/18 Please Sign and Return: I have reviewed this Plan of Care and certify that the skilled therapy services above are required to meet the patient?s needs. Physician Signature Date Printed Name and Credentials Clinical Instructor Signature Printed Name and Credentials
--- NOTE | 2018-10-05 15:23 | PT.OTN ---
Current Diagnoses Other enthesopathies, not elsewhere classified (10/05/18) Physical Therapy Treatment Note PT-OP-A Visit Information Start: 06/27/18 17:30 Freq: Status: Active Protocol: Document 10/05/18 09:02 LRN (Rec: 10/05/18 09:50 LRN [id number]) Out-Patient Physical Therapy Visit Information Visit Information Visit Type Progress Note Visit Start Time 09:02 Visit Stop Time 09:50 Total Visit Minutes 48 Visit Number 16 Number of CIRCULATION REPRESENTATIVE Visits 0 Evaluation Information Evaluation Date 06/30/18 PT-OP-B Current Condition Start: 06/27/18 17:30 Freq: Status: Active Protocol: Document 06/30/18 15:46 LRN (Rec: 06/30/18 16:51 LRN [id number]) Current Condition History of Current Condition Onset Date 04/29/2018 Current Complaints Tightness>Pain in R posterior upper arm. Treatment Goals Patient/Caregiver Goals Pt goal is to eliminate the pain, regain full motion of the R arm and shoulder. Prior Functional Status Baseline Function- ADL's Independent Baseline Function- Mobility Independent Baseline Function- Recreation/Hobbies Exercises at home with weights and aerobic exercise. Current Functional Impairments (Reported) Functional Limitations- ADL's Difficulty lifting overhead. Difficulty reaching behind the back for dressing and bathing . Functional Limitations- Recreation/ Stopped exercising with Hobbies weights, has continued with aerobic exercise. Personal Factors Other Personal Factors That May Effect None Therapy/Recovery PT-OP-C Subjective Start: 06/27/18 17:30 Freq: Status: Active Protocol: Document 10/05/18 09:02 LRN (Rec: 10/05/18 09:50 LRN [id number]) OP-PT Subjective Patient Comments Patient Comments Not as sore; therefore thinks ultrasound must have helped. PT-OP-F Manual Assessment Start: 06/27/18 17:30 Freq: Status: Active Protocol: Document 07/09/18 09:47 LRN (Rec: 07/09/18 10:35 LRN [id number]) Manual Assessments Soft Tissue Assessment Soft Tissue Mobility Assessment No tenderness in R posterior brachium or biceps in full extension. Joint Mobility Assessment Joint Mobility Assessment Shoulder PT-OP-H Neuro Start: 06/27/18 17:30 Freq: Status: Active Protocol: Document 06/30/18 15:46 LRN (Rec: 06/30/18 16:51 LRN [id number]) Sensation Evaluation Gross Sensation Gross Sensation WNL Deep Tendon Reflex & Clonus Assessment Deep Tendon Reflex Bilateral Brachioradialis Deep Tendon Reflex 2+ Normal Bilateral Tricep Deep Tendon Reflex 2+ Normal Bilateral Bicep Deep Tendon Reflex 2+ Normal PT-OP-J Posture/Palpation/Skin Start: 06/27/18 17:30 Freq: Status: Active Protocol: Document 07/09/18 09:47 LRN (Rec: 07/09/18 10:35 LRN [id number]) Palpation Assessment Location Two Palpation Location R Upper Trapezius Palpation Findings Soft Tissue Tightness Muscle Guarding Tenderness PT-OP-K Range of Motion Start: 06/27/18 17:30 Freq: Status: Active Protocol: Document 09/22/18 09:03 LRN (Rec: 09/22/18 09:50 LRN [id number]) Shoulder Goniometric Range of Motion Shoulder Measured in Degrees Right Passive Testing Position Supine Flexion 154 External Rotation at 90 degrees 62 Abduction Internal Rotation 50 Internal Rotation Behind Back (text) L1 Right Active Testing Position Supine Flexion 153 External Rotation at 90 degrees 58 Abduction Internal Rotation 45 Internal Rotation Behind Back (text) L3 PT-OP-L Special Tests Start: 06/27/18 17:30 Freq: Status: Active Protocol: Document 06/30/18 15:46 LRN (Rec: 06/30/18 16:51 LRN [id number]) Special Tests Other Special Tests Special Tests Cervical: Cervical Compression and Distraction: Negative. Foraminal Compression: Negative bilaterally. Shoulder: Impingement: Positive on Right with posterior brachium pain. PT-OP-M Strength Start: 06/27/18 17:30 Freq: Status: Active Protocol: Document 09/22/18 09:03 LRN (Rec: 09/22/18 09:58 LRN [id number]) Shoulder Strength Shoulder Manual Muscle Testing Right Flexion 5 Normal Abduction (C5) 2 Poor External Rotation 2 Poor Internal Rotation 5 Normal Left Reason Not Measured WFL PT-OP-Q Treatments Start: 06/27/18 17:30 Freq: Status: Active Protocol: Document 10/05/18 09:02 LRN (Rec: 10/05/18 09:50 LRN [id number]) Cardio Equipment Upper Body Ergometer (UBE) Duration (Minutes) 10 RPM 70 Seat Position 9 Height 8 Other fwd/bkwd Therapeutic Exercises Supine Exercises Shouler AB Supine Exercise Name Shoulder AB with GH inferior glide f/b active shoulder AB with elbow flexed Side right Shoulder AD stretch Side right Reps/Minutes 4' Shoulder IR stretch Supine Exercise Name PROM f/b AROM Side right Shoulder ER stretch Supine Exercise Name PROM f/b AROM Side right Shoulder Flex Supine Exercise Name Stretch f/b active shoulder flex Side right Reps/Minutes 4' Sitting Exercises Shoulder IR stretch Sitting Exercise Name Sitting on a chair with elbow anchored. Reps/Minutes 5' Comments Followed by active shoulder IR Standing Exercises R shoulder IR stretch with towel Standing Exercise Name IR stretch with towel Reps/Minutes 2' Manual Therapy Treatment Joint Mobilizations 1 Joint GH Direction Post/Inf Grade II Body Position Supine PT-OP-R Modalities Start: 06/27/18 17:30 Freq: Status: Active Protocol: Document 10/05/18 09:02 LRN (Rec: 10/05/18 15:22 LRN [id number]) Ultrasound Therapy Treatment R shoulder Treatment Duration (minutes) 8 Patient Position Supine Coupling Medium Ultrasound Gel Applicator Size (cm2) 5 Mode Setting Continuous Duty Cycle 100% Intensity Setting (w/cm2) 1.5 PT-OP-T Assessment and Plan Start: 06/27/18 17:30 Freq: Status: Active Protocol: Document 10/05/18 09:02 LRN (Rec: 10/05/18 09:50 LRN [id number]) Physical Therapy Assessment Rehab Potential Rehabilitation Potential Excellent Evaluation Complexity Number of Personal Factors/Comorbidities 0 Number of Body Systems Impaired 3 Clinical Presentation at Evaluation Evolving Impairments Impairments Functional Activities Pain ROM Strength Other Impairments Impairment of R shoulder Goals Three Impairment Decreased R shoulder IR AROM/ PROM due to pain Short Term Goal (STG) Pt will demonstrated functional passive ROM of the R shoulder for reaching behind the back. STG Duration 09/14/18 (08/25/18: Goal partially met) Assistant Project Manager Goal (LTG) Pt will be able to put on her belt and tuck her shirt in the back without pain. (08/03/18: Mildly easier to put belt on and tuck shirt in). LTG Duration 10/23/18 (08/25/18: Goal partially met) Two Impairment Decreased R active shoulder mobility due to R posterior brachium pain. [facility]ci Goal (LTG) Pt will be able to reach overhead with mild discomfort to return to a light exercise home program. LTG Duration 08/27/18 (08/16/18) GOAL MET One Impairment Lacks appropriate self care HEP. [facility]ci Goal (LTG) Pt will be independent in a HEP. LTG Duration 10/23/18 (08/25/18: Progressing with goal) Progress Towards Goals Progress Towards Goals Progressing Toward Goals Slow Progress due to Activity Tolerance Progress Comments Goal #1: HEP progressing Goal #2: Reaching goal MET Goal #3 LTG: ROM Improving, partially met. Pt able to put belt on and tuck her shirt in with the LUE with much difficulty. Assessment Summary Assessment R frozen shoulder. Pt tolerated R shoulder ROM and stretching with greater ease of movement with lesser time between appointments; therfore pt would benefit from increasing therapy to 2x/week to achieve functional mobility sooner. She has less soreness; therefore use of US appears helpful. Pt diagnosed with joon-menopausal frozen shoulder and has signs of R shoulder impingement with decreased joint mobility. Pt has had tightness from cervical scaleni, pec minor, and UE neural tension referring pain to her posterior upper arm. Limited flex, ABD, ER, horiz AD. Physical Therapy Plan Frequency and Duration Frequency of Treatment 2x/Week Plan of Care Start Date 10/05/18 Plan of Care End Date 11/23/18 Therapeutic Interventions Therapeutic Interventions Home Exercise Program Manual Therapy Patient/Caregiver Education Self-Care/Home Management Soft Tissue Mobilization Taping Therapeutic Exercises Modalities Cold Pack/Ice Massage Electric Stimulation Hot Packs Ultrasound Next Visit Focus/Plan Next Note Type Treatment Note Next Visit Plan Cont 2x/week due to lack of progress at 1x/2 weeks and slow improvement at 1x/week. More visits for maximizing ROM , mobility and educating pt on self care. Recheck scalene stretch, scapular mobility, QuickDASH/Pain grid. Assess functional goals other than dressing goals.
--- NOTE | 2018-10-05 15:33 | PT.OTN ---
Current Diagnoses Other enthesopathies, not elsewhere classified (10/05/18) Physical Therapy Treatment Note PT-OP-A Visit Information Start: 06/27/18 17:30 Freq: Status: Active Protocol: Document 10/05/18 09:02 LRN (Rec: 10/05/18 09:50 LRN [id number]) Out-Patient Physical Therapy Visit Information Visit Information Visit Type Progress Note Visit Start Time 09:02 Visit Stop Time 09:50 Total Visit Minutes 48 Visit Number 16 Number of TOURIST HOME KEEPER Visits 0 Evaluation Information Evaluation Date 06/30/18 PT-OP-B Current Condition Start: 06/27/18 17:30 Freq: Status: Active Protocol: Document 06/30/18 15:46 LRN (Rec: 06/30/18 16:51 LRN [id number]) Current Condition History of Current Condition Onset Date 04/29/2018 Current Complaints Tightness>Pain in R posterior upper arm. Treatment Goals Patient/Caregiver Goals Pt goal is to eliminate the pain, regain full motion of the R arm and shoulder. Prior Functional Status Baseline Function- ADL's Independent Baseline Function- Mobility Independent Baseline Function- Recreation/Hobbies Exercises at home with weights and aerobic exercise. Current Functional Impairments (Reported) Functional Limitations- ADL's Difficulty lifting overhead. Difficulty reaching behind the back for dressing and bathing . Functional Limitations- Recreation/ Stopped exercising with Hobbies weights, has continued with aerobic exercise. Personal Factors Other Personal Factors That May Effect None Therapy/Recovery PT-OP-C Subjective Start: 06/27/18 17:30 Freq: Status: Active Protocol: Document 10/05/18 09:02 LRN (Rec: 10/05/18 09:50 LRN [id number]) OP-PT Subjective Patient Comments Patient Comments Not as sore; therefore thinks ultrasound must have helped. PT-OP-F Manual Assessment Start: 06/27/18 17:30 Freq: Status: Active Protocol: Document 07/09/18 09:47 LRN (Rec: 07/09/18 10:35 LRN [id number]) Manual Assessments Soft Tissue Assessment Soft Tissue Mobility Assessment No tenderness in R posterior brachium or biceps in full extension. Joint Mobility Assessment Joint Mobility Assessment Shoulder PT-OP-H Neuro Start: 06/27/18 17:30 Freq: Status: Active Protocol: Document 06/30/18 15:46 LRN (Rec: 06/30/18 16:51 LRN [id number]) Sensation Evaluation Gross Sensation Gross Sensation WNL Deep Tendon Reflex & Clonus Assessment Deep Tendon Reflex Bilateral Brachioradialis Deep Tendon Reflex 2+ Normal Bilateral Tricep Deep Tendon Reflex 2+ Normal Bilateral Bicep Deep Tendon Reflex 2+ Normal PT-OP-J Posture/Palpation/Skin Start: 06/27/18 17:30 Freq: Status: Active Protocol: Document 07/09/18 09:47 LRN (Rec: 07/09/18 10:35 LRN [id number]) Palpation Assessment Location Two Palpation Location R Upper Trapezius Palpation Findings Soft Tissue Tightness Muscle Guarding Tenderness PT-OP-K Range of Motion Start: 06/27/18 17:30 Freq: Status: Active Protocol: Document 09/22/18 09:03 LRN (Rec: 09/22/18 09:50 LRN [id number]) Shoulder Goniometric Range of Motion Shoulder Measured in Degrees Right Passive Testing Position Supine Flexion 154 External Rotation at 90 degrees 62 Abduction Internal Rotation 50 Internal Rotation Behind Back (text) L1 Right Active Testing Position Supine Flexion 153 External Rotation at 90 degrees 58 Abduction Internal Rotation 45 Internal Rotation Behind Back (text) L3 PT-OP-L Special Tests Start: 06/27/18 17:30 Freq: Status: Active Protocol: Document 06/30/18 15:46 LRN (Rec: 06/30/18 16:51 LRN [id number]) Special Tests Other Special Tests Special Tests Cervical: Cervical Compression and Distraction: Negative. Foraminal Compression: Negative bilaterally. Shoulder: Impingement: Positive on Right with posterior brachium pain. PT-OP-M Strength Start: 06/27/18 17:30 Freq: Status: Active Protocol: Document 09/22/18 09:03 LRN (Rec: 09/22/18 09:58 LRN [id number]) Shoulder Strength Shoulder Manual Muscle Testing Right Flexion 5 Normal Abduction (C5) 2 Poor External Rotation 2 Poor Internal Rotation 5 Normal Left Reason Not Measured WFL PT-OP-Q Treatments Start: 06/27/18 17:30 Freq: Status: Active Protocol: Document 10/05/18 09:02 LRN (Rec: 10/05/18 09:50 LRN [id number]) Cardio Equipment Upper Body Ergometer (UBE) Duration (Minutes) 10 RPM 70 Seat Position 9 Height 8 Other fwd/bkwd Therapeutic Exercises Supine Exercises Shoulder AB Supine Exercise Name Stretch f/b active shoulder AB Side right Shouler AB Supine Exercise Name Shoulder AB with GH inferior glide f/b active shoulder AB with elbow flexed Side right Shoulder AD stretch Side right Reps/Minutes 4' Shoulder IR stretch Supine Exercise Name PROM f/b AROM Side right Shoulder ER stretch Supine Exercise Name PROM f/b AROM Side right Shoulder Flex Supine Exercise Name Stretch f/b active shoulder flex Side right Reps/Minutes 4' Sitting Exercises Shoulder IR stretch Sitting Exercise Name Sitting on a chair with elbow anchored. Reps/Minutes 5' Comments Followed by active shoulder IR Standing Exercises R shoulder IR stretch with towel Standing Exercise Name IR stretch with towel Reps/Minutes 2' Manual Therapy Treatment Joint Mobilizations 1 Joint GH Direction Post/Inf Grade II Body Position Supine PT-OP-R Modalities Start: 06/27/18 17:30 Freq: Status: Active Protocol: Document 10/05/18 09:02 LRN (Rec: 10/05/18 15:22 LRN [id number]) Ultrasound Therapy Treatment R shoulder Treatment Duration (minutes) 8 Patient Position Supine Coupling Medium Ultrasound Gel Applicator Size (cm2) 5 Mode Setting Continuous Duty Cycle 100% Intensity Setting (w/cm2) 1.5 PT-OP-T Assessment and Plan Start: 06/27/18 17:30 Freq: Status: Active Protocol: Document 10/05/18 09:02 LRN (Rec: 10/05/18 09:50 LRN [id number]) Physical Therapy Assessment Rehab Potential Rehabilitation Potential Excellent Evaluation Complexity Number of Personal Factors/Comorbidities 0 Number of Body Systems Impaired 3 Clinical Presentation at Evaluation Evolving Impairments Impairments Functional Activities Pain ROM Strength Other Impairments Impairment of R shoulder Goals Three Impairment Decreased R shoulder IR AROM/ PROM due to pain Short Term Goal (STG) Pt will demonstrated functional passive ROM of the R shoulder for reaching behind the back. STG Duration 09/14/18 (08/25/18: Goal partially met) Longterm Goal (LTG) Pt will be able to put on her belt and tuck her shirt in the back without pain. (08/03/18: Mildly easier to put belt on and tuck shirt in). LTG Duration 10/23/18 (08/25/18: Goal partially met) Two Impairment Decreased R active shoulder mobility due to R posterior brachium pain. Longterm Goal (LTG) Pt will be able to reach overhead with mild discomfort to return to a light exercise home program. LTG Duration 08/27/18 (08/16/18) GOAL MET One Impairment Lacks appropriate self care HEP. Criminal Lawyer Goal (LTG) Pt will be independent in a HEP. LTG Duration 10/23/18 (08/25/18: Progressing with goal) Progress Towards Goals Progress Towards Goals Progressing Toward Goals Slow Progress due to Activity Tolerance Progress Comments Goal #1: HEP progressing Goal #2: GOAL MET for reaching Goal #3 LTG: ROM Improving, goal partially met. Pt able to put belt on and tuck her shirt in with the LUE with much difficulty. Assessment Summary Assessment R frozen shoulder. Pt tolerated R shoulder ROM and stretching with greater ease of movement with lesser time between appointments; therfore pt would benefit from increasing therapy to 2x/week to achieve functional mobility sooner. She has less soreness; therefore use of US appears helpful. Pt diagnosed with joon-menopausal frozen shoulder and has signs of R shoulder impingement with decreased joint mobility. Pt has had tightness from cervical scaleni, pec minor, and UE neural tension referring pain to her posterior upper arm. Limited flex, ABD, ER, horiz AD. Physical Therapy Plan Frequency and Duration Frequency of Treatment 2x/Week Plan of Care Start Date 10/05/18 Plan of Care End Date 11/23/18 Therapeutic Interventions Therapeutic Interventions Home Exercise Program Manual Therapy Patient/Caregiver Education Self-Care/Home Management Soft Tissue Mobilization Therapeutic Exercises Modalities Cold Pack/Ice Massage Electric Stimulation Hot Packs Ultrasound Next Visit Focus/Plan Next Note Type Treatment Note Next Visit Plan Cont 2x/week due to lack of progress at 1x/2 weeks and slow improvement at 1x/week. More visits needed for maximizing ROM, mobility, function, and educating pt on self care. Recheck scalene stretch, scapular mobility, QuickDASH/Pain grid.
--- NOTE | 2018-10-05 15:34 | PT.OPPOC ---
Current Diagnoses Other enthesopathies, not elsewhere classified (10/05/18) Provider Visit Care Team Role Provider Type Chris Gan MD Primary Care Provider Physician Specialty: Family Practice Address: [address] [place] [address], [id number] Email: [email or web address] DENNY Camejo Attending Provider Advanced Swager Operator Specialty: Family Practice Address: [facility] [facility], [place], [address] Email: [email or web address] Plan Of Care PT-OP-T Assessment and Plan Start: 06/27/18 17:30 Freq: Status: Active Protocol: Document 10/05/18 09:02 LRN (Rec: 10/05/18 09:50 LRN [id number]) Physical Therapy Assessment Rehab Potential Rehabilitation Potential Excellent Evaluation Complexity Number of Personal Factors/Comorbidities 0 Number of Body Systems Impaired 3 Clinical Presentation at Evaluation Evolving Impairments Impairments Functional Activities Pain ROM Strength Other Impairments Impairment of R shoulder Goals Three Impairment Decreased R shoulder IR AROM/ PROM due to pain Short Term Goal (STG) Pt will demonstrated functional passive ROM of the R shoulder for reaching behind the back. STG Duration 09/14/18 (08/25/18: Goal partially met) Assisted Goal (LTG) Pt will be able to put on her belt and tuck her shirt in the back without pain. (08/03/18: Mildly easier to put belt on and tuck shirt in). LTG Duration 10/23/18 (08/25/18: Goal partially met) Two Impairment Decreased R active shoulder mobility due to R posterior brachium pain. Assisted Goal (LTG) Pt will be able to reach overhead with mild discomfort to return to a light exercise home program. LTG Duration 08/27/18 (08/16/18) GOAL MET One Impairment Lacks appropriate self care HEP. Assisted Goal (LTG) Pt will be independent in a HEP. LTG Duration 10/23/18 (08/25/18: Progressing with goal) Progress Towards Goals Progress Towards Goals Progressing Toward Goals Slow Progress due to Activity Tolerance Progress Comments Goal #1: HEP progressing Goal #2: GOAL MET for reaching Goal #3 LTG: ROM Improving, goal partially met. Pt able to put belt on and tuck her shirt in with the LUE with much difficulty. Assessment Summary Assessment R frozen shoulder. Pt tolerated R shoulder ROM and stretching with greater ease of movement with lesser time between appointments; therfore pt would benefit from increasing therapy to 2x/week to achieve functional mobility sooner. She has less soreness; therefore use of US appears helpful. Pt diagnosed with joon-menopausal frozen shoulder and has signs of R shoulder impingement with decreased joint mobility. Pt has had tightness from cervical scaleni, pec minor, and UE neural tension referring pain to her posterior upper arm. Limited flex, ABD, ER, horiz AD. Physical Therapy Plan Frequency and Duration Frequency of Treatment 2x/Week Plan of Care Start Date 10/05/18 Plan of Care End Date 11/23/18 Therapeutic Interventions Therapeutic Interventions Home Exercise Program Manual Therapy Patient/Caregiver Education Self-Care/Home Management Soft Tissue Mobilization Therapeutic Exercises Modalities Cold Pack/Ice Massage Electric Stimulation Hot Packs Ultrasound Next Visit Focus/Plan Next Note Type Treatment Note Next Visit Plan Cont 2x/week due to lack of progress at 1x/2 weeks and slow improvement at 1x/week. More visits needed for maximizing ROM, mobility, function, and educating pt on self care. Recheck scalene stretch, scapular mobility, QuickDASH/Pain grid. Plan of Care Dates Plan of Care Start Date 10/05/18 Plan of Care End Date 11/23/18 Please Sign and Return: I have reviewed this Plan of Care and certify that the skilled therapy services above are required to meet the patient?s needs. Physician Signature Date Printed Name and Credentials Clinical Instructor Signature Printed Name and Credentials
--- NOTE | 2018-10-13 11:53 | PT.OTN ---
Current Diagnoses Other enthesopathies, not elsewhere classified (10/13/18) Physical Therapy Treatment Note PT-OP-A Visit Information Start: 06/27/18 17:30 Freq: Status: Active Protocol: Document 10/13/18 09:49 LRN (Rec: 10/13/18 10:34 LRN [id number]) Out-Patient Physical Therapy Visit Information Visit Information Visit Type Progress Note Visit Start Time 09:49 Visit Stop Time 10:45 Total Visit Minutes 56 Visit Number 17 Number of FLIGHT DECK OFFICER Visits 0 Evaluation Information Evaluation Date 06/30/18 PT-OP-B Current Condition Start: 06/27/18 17:30 Freq: Status: Active Protocol: Document 06/30/18 15:46 LRN (Rec: 06/30/18 16:51 LRN [id number]) Current Condition History of Current Condition Onset Date 04/29/2018 Current Complaints Tightness>Pain in R posterior upper arm. Treatment Goals Patient/Caregiver Goals Pt goal is to eliminate the pain, regain full motion of the R arm and shoulder. Prior Functional Status Baseline Function- ADL's Independent Baseline Function- Mobility Independent Baseline Function- Recreation/Hobbies Exercises at home with weights and aerobic exercise. Current Functional Impairments (Reported) Functional Limitations- ADL's Difficulty lifting overhead. Difficulty reaching behind the back for dressing and bathing . Functional Limitations- Recreation/ Stopped exercising with Hobbies weights, has continued with aerobic exercise. Personal Factors Other Personal Factors That May Effect None Therapy/Recovery PT-OP-C Subjective Start: 06/27/18 17:30 Freq: Status: Active Protocol: Document 10/13/18 09:49 LRN (Rec: 10/13/18 10:34 LRN [id number]) OP-PT Subjective Patient Comments Patient Comments States her upper back at the base of the neck becomes tight with a feeling of cramping with use of her arm for the past 2 weeks, its worse than the shoulder. States the shoulder mobility is improving . Strength is slowly improving. Patient Reported Progress Improving Patient Questionnaires Quick Dash- Upper Extremity Quick Dash UE Score 15.9 Quick Dash UE Impairment 1 to 19% Impaired (Score 1-19) OP-PT Pain Assessment Location Posterior R upper Brachium, Pain Location Details Lateral upper shoulder ( Deltoid) Intensity 3 Scale Used Numeric (1 - 10) PT-OP-F Manual Assessment Start: 06/27/18 17:30 Freq: Status: Active Protocol: Document 07/09/18 09:47 LRN (Rec: 07/09/18 10:35 LRN [id number]) Manual Assessments Soft Tissue Assessment Soft Tissue Mobility Assessment No tenderness in R posterior brachium or biceps in full extension. Joint Mobility Assessment Joint Mobility Assessment Shoulder PT-OP-H Neuro Start: 06/27/18 17:30 Freq: Status: Active Protocol: Document 06/30/18 15:46 LRN (Rec: 06/30/18 16:51 LRN [id number]) Sensation Evaluation Gross Sensation Gross Sensation WNL Deep Tendon Reflex & Clonus Assessment Deep Tendon Reflex Bilateral Brachioradialis Deep Tendon Reflex 2+ Normal Bilateral Tricep Deep Tendon Reflex 2+ Normal Bilateral Bicep Deep Tendon Reflex 2+ Normal PT-OP-J Posture/Palpation/Skin Start: 06/27/18 17:30 Freq: Status: Active Protocol: Document 07/09/18 09:47 LRN (Rec: 07/09/18 10:35 LRN [id number]) Palpation Assessment Location Two Palpation Location R Upper Trapezius Palpation Findings Soft Tissue Tightness Muscle Guarding Tenderness PT-OP-K Range of Motion Start: 06/27/18 17:30 Freq: Status: Active Protocol: Document 09/22/18 09:03 LRN (Rec: 09/22/18 09:50 LRN [id number]) Shoulder Goniometric Range of Motion Shoulder Measured in Degrees Right Passive Testing Position Supine Flexion 154 External Rotation at 90 degrees 62 Abduction Internal Rotation 50 Internal Rotation Behind Back (text) L1 Right Active Testing Position Supine Flexion 153 External Rotation at 90 degrees 58 Abduction Internal Rotation 45 Internal Rotation Behind Back (text) L3 PT-OP-L Special Tests Start: 06/27/18 17:30 Freq: Status: Active Protocol: Document 06/30/18 15:46 LRN (Rec: 06/30/18 16:51 LRN [id number]) Special Tests Other Special Tests Special Tests Cervical: Cervical Compression and Distraction: Negative. Foraminal Compression: Negative bilaterally. Shoulder: Impingement: Positive on Right with posterior brachium pain. PT-OP-M Strength Start: 06/27/18 17:30 Freq: Status: Active Protocol: Document 09/22/18 09:03 LRN (Rec: 09/22/18 09:58 LRN [id number]) Shoulder Strength Shoulder Manual Muscle Testing Right Flexion 5 Normal Abduction (C5) 2 Poor External Rotation 2 Poor Internal Rotation 5 Normal Left Reason Not Measured WFL PT-OP-Q Treatments Start: 06/27/18 17:30 Freq: Status: Active Protocol: Document 10/13/18 09:49 LRN (Rec: 10/13/18 10:34 LRN [id number]) Cardio Equipment Upper Body Ergometer (UBE) Duration (Minutes) 8 RPM 60 Seat Position 9 Height 8 Other fwd/bkwd Therapeutic Exercises Supine Exercises Shoulder AB Supine Exercise Name Stretch f/b active shoulder AB Side right Shoulder AD stretch Supine Exercise Name Horizontal AD stretch Side right Reps/Minutes 4' Shoulder IR stretch Supine Exercise Name PROM f/b AROM Side right Shoulder ER stretch Supine Exercise Name PROM f/b AROM Side right Shoulder Flex Supine Exercise Name Stretch f/b active shoulder flex Side right Reps/Minutes 4' Sitting Exercises Shoulder IR stretch Sitting Exercise Name Sitting on a chair with elbow anchored. Side right Reps/Minutes 5' Comments Followed by active shoulder IR Standing Exercises Shoulder Flex Standing Exercise Name End-range strengthening Side bilateral Resistance Lev 2 T-Band Reps/Minutes 10x Scalene stretch Standing Exercise Name Primarily Left Scalene Side bilateral Equipment Used towel Reps/Minutes 5' Shoulder ext Side bilateral Resistance Lev 2 T-Band Reps/Minutes 15x Row Standing Exercise Name Horiz AB R shoulder IR stretch with towel Standing Exercise Name IR stretch with towel Reps/Minutes 2' Shoulder drop Standing Exercise Name Lat Dorsi/Lower Trap strengthening (shoulder AD from side position) Side bilateral Resistance L 2 T-Band Reps/Minutes 3' Manual Therapy Treatment Joint Mobilizations 1 Joint GH Direction Post/Inf Grade II Body Position Supine PT-OP-R Modalities Start: 06/27/18 17:30 Freq: Status: Active Protocol: Document 10/05/18 09:02 LRN (Rec: 10/05/18 15:22 LRN [id number]) Ultrasound Therapy Treatment R shoulder Treatment Duration (minutes) 8 Patient Position Supine Coupling Medium Ultrasound Gel Applicator Size (cm2) 5 Mode Setting Continuous Duty Cycle 100% Intensity Setting (w/cm2) 1.5 PT-OP-T Assessment and Plan Start: 06/27/18 17:30 Freq: Status: Active Protocol: Document 10/13/18 09:49 LRN (Rec: 10/13/18 10:34 LRN [id number]) Physical Therapy Assessment Goals Three Impairment Decreased R shoulder IR AROM/ PROM due to pain Short Term Goal (STG) Pt will demonstrated functional passive ROM of the R shoulder for reaching behind the back. STG Duration 09/14/18 (08/25/18: Goal partially met) Fdc Goal (LTG) Pt will be able to put on her belt and tuck her shirt in the back without pain. (08/03/18: Mildly easier to put belt on and tuck shirt in). LTG Duration 10/23/18 (08/25/18: Goal partially met) Two Impairment Decreased R active shoulder mobility due to R posterior brachium pain. Fdc Goal (LTG) Pt will be able to reach overhead with mild discomfort to return to a light exercise home program. LTG Duration 08/27/18 (08/16/18) GOAL MET One Impairment Lacks appropriate self care HEP. Fdc Goal (LTG) Pt will be independent in a HEP. LTG Duration 10/23/18 (08/25/18: Progressing with goal) Progress Towards Goals Progress Towards Goals Progressing Toward Goals Slow Progress due to Activity Tolerance Progress Comments Goal #1: HEP progressing Goal #2: GOAL MET for reaching Goal #3 LTG: ROM Improving, goal partially met. Pt able to put belt on and tuck her shirt in with the LUE with much difficulty. Assessment Summary Assessment Pt diagnosed with joon- menopausal frozen shoulder and has signs of R shoulder impingement with decreased joint mobility. Focus today was on manual therapy and strengthening upper back; therefore no US due to time constraint although US has been found to be very helpful in the past. Pt has had tightness from cervical scaleni, pec minor, and UE neural tension referring pain to her posterior upper arm. Limited flex, ABD, ER, horiz AD. Per UE QuickDASH pt is 15 .9% impaired, pain is worse at 2-3/10 (was 1/10) with the increase in her activity as expected. Physical Therapy Plan Frequency and Duration Frequency of Treatment 2x/Week Plan of Care Start Date 10/05/18 Plan of Care End Date 11/23/18 Next Visit Focus/Plan Next Note Type Treatment Note Next Visit Plan Cont 2x/week due to lack of progress at 1x/2 weeks and slow improvement at 1x/week. Maximize ROM, mobility, function, and educating pt on self care. Recheck scapular mobility.
--- NOTE | 2018-10-15 15:38 | PT.OTN ---
Current Diagnoses Other enthesopathies, not elsewhere classified (10/15/18) Physical Therapy Treatment Note PT-OP-A Visit Information Start: 06/27/18 17:30 Freq: Status: Active Protocol: Document 10/15/18 09:49 LRN (Rec: 10/15/18 15:32 LRN [id number]) Out-Patient Physical Therapy Visit Information Visit Information Visit Type Treatment Note Visit Start Time 09:49 Visit Stop Time 10:37 Total Visit Minutes 48 Visit Number 18 Number of PAPER TWISTER TENDER Visits 0 Evaluation Information Evaluation Date 06/30/18 PT-OP-B Current Condition Start: 06/27/18 17:30 Freq: Status: Active Protocol: Document 06/30/18 15:46 LRN (Rec: 06/30/18 16:51 LRN [id number]) Current Condition History of Current Condition Onset Date 04/29/2018 Current Complaints Tightness>Pain in R posterior upper arm. Treatment Goals Patient/Caregiver Goals Pt goal is to eliminate the pain, regain full motion of the R arm and shoulder. Prior Functional Status Baseline Function- ADL's Independent Baseline Function- Mobility Independent Baseline Function- Recreation/Hobbies Exercises at home with weights and aerobic exercise. Current Functional Impairments (Reported) Functional Limitations- ADL's Difficulty lifting overhead. Difficulty reaching behind the back for dressing and bathing . Functional Limitations- Recreation/ Stopped exercising with Hobbies weights, has continued with aerobic exercise. Personal Factors Other Personal Factors That May Effect None Therapy/Recovery PT-OP-C Subjective Start: 06/27/18 17:30 Freq: Status: Active Protocol: Document 10/15/18 09:49 LRN (Rec: 10/15/18 15:32 LRN [id number]) OP-PT Subjective Patient Comments Patient Comments States her mobility is improving, the onset of tightness in the back of the neck/shoulders is the biggest problem. PT-OP-F Manual Assessment Start: 06/27/18 17:30 Freq: Status: Active Protocol: Document 07/09/18 09:47 LRN (Rec: 07/09/18 10:35 LRN [id number]) Manual Assessments Soft Tissue Assessment Soft Tissue Mobility Assessment No tenderness in R posterior brachium or biceps in full extension. Joint Mobility Assessment Joint Mobility Assessment Shoulder PT-OP-H Neuro Start: 06/27/18 17:30 Freq: Status: Active Protocol: Document 06/30/18 15:46 LRN (Rec: 06/30/18 16:51 LRN [id number]) Sensation Evaluation Gross Sensation Gross Sensation WNL Deep Tendon Reflex & Clonus Assessment Deep Tendon Reflex Bilateral Brachioradialis Deep Tendon Reflex 2+ Normal Bilateral Tricep Deep Tendon Reflex 2+ Normal Bilateral Bicep Deep Tendon Reflex 2+ Normal PT-OP-J Posture/Palpation/Skin Start: 06/27/18 17:30 Freq: Status: Active Protocol: Document 07/09/18 09:47 LRN (Rec: 07/09/18 10:35 LRN [id number]) Palpation Assessment Location Two Palpation Location R Upper Trapezius Palpation Findings Soft Tissue Tightness Muscle Guarding Tenderness PT-OP-K Range of Motion Start: 06/27/18 17:30 Freq: Status: Active Protocol: Document 09/22/18 09:03 LRN (Rec: 09/22/18 09:50 LRN [id number]) Shoulder Goniometric Range of Motion Shoulder Measured in Degrees Right Passive Testing Position Supine Flexion 154 External Rotation at 90 degrees 62 Abduction Internal Rotation 50 Internal Rotation Behind Back (text) L1 Right Active Testing Position Supine Flexion 153 External Rotation at 90 degrees 58 Abduction Internal Rotation 45 Internal Rotation Behind Back (text) L3 PT-OP-L Special Tests Start: 06/27/18 17:30 Freq: Status: Active Protocol: Document 06/30/18 15:46 LRN (Rec: 06/30/18 16:51 LRN [id number]) Special Tests Other Special Tests Special Tests Cervical: Cervical Compression and Distraction: Negative. Foraminal Compression: Negative bilaterally. Shoulder: Impingement: Positive on Right with posterior brachium pain. PT-OP-M Strength Start: 06/27/18 17:30 Freq: Status: Active Protocol: Document 09/22/18 09:03 LRN (Rec: 09/22/18 09:58 LRN [id number]) Shoulder Strength Shoulder Manual Muscle Testing Right Flexion 5 Normal Abduction (C5) 2 Poor External Rotation 2 Poor Internal Rotation 5 Normal Left Reason Not Measured WFL PT-OP-Q Treatments Start: 06/27/18 17:30 Freq: Status: Active Protocol: Document 10/15/18 09:49 LRN (Rec: 03/21/19 15:32 LRN [id number]) Therapeutic Exercises Supine Exercises Shoulder AB Supine Exercise Name Stretch f/b active shoulder AB Side right Shouler AB Supine Exercise Name Shoulder AB with GH inferior glide f/b active shoulder AB with elbow flexed Side right Shoulder AD stretch Supine Exercise Name Horizontal AD stretch Side right Reps/Minutes 4' Shoulder IR stretch Supine Exercise Name PROM f/b AROM Side right Shoulder ER stretch Supine Exercise Name PROM f/b AROM Side right Scapular depression Supine Exercise Name LAT Pull down Side bilateral Resistance Lev 2 T-Band Equipment Used T-Band/Cane Reps/Minutes 15 x 2 Shoulder Flex Supine Exercise Name Stretch f/b active shoulder flex Side right Reps/Minutes 4' Manual Therapy Treatment Joint Mobilizations 1 Joint GH Direction Post/Inf Grade II Body Position Supine PT-OP-R Modalities Start: 06/27/18 17:30 Freq: Status: Active Protocol: Document 10/15/18 09:49 LRN (Rec: 10/15/18 15:15 LRN [id number]) Ultrasound Therapy Treatment R shoulder Treatment Duration (minutes) 8 Patient Position Supine Coupling Medium Ultrasound Gel Applicator Size (cm2) 5 Mode Setting Continuous Duty Cycle 100% Intensity Setting (w/cm2) 1.5 PT-OP-T Assessment and Plan Start: 06/27/18 17:30 Freq: Status: Active Protocol: Document 10/15/18 09:49 LRN (Rec: 10/15/18 15:32 LRN [id number]) Physical Therapy Assessment Progress Towards Goals Progress Towards Goals Progressing Toward Goals Slow Progress due to Activity Tolerance Progress Comments Goal #1: HEP progressing Goal #2: GOAL MET for reaching Goal #3 LTG: ROM feeling more easy to do, goal partially met . Pt able to put belt on and tuck her shirt in with the LUE with much difficulty. Assessment Summary Assessment Pt diagnosed with joon- menopausal frozen shoulder and has lessening signs of R shoulder impingement with decreased joint mobility. Focus on manual therapy and strengthening upper back & US due to finding it to be very helpful. Pt has had tightness from cervical scaleni, pec minor, and UE neural tension referring pain to her posterior upper arm. Limited flex, ABD, ER, horiz AD. Physical Therapy Plan Frequency and Duration Frequency of Treatment 2x/Week Plan of Care Start Date 10/05/18 Plan of Care End Date 11/23/18 Next Visit Focus/Plan Next Note Type Treatment Note Next Visit Plan Recheck scapular mobility. Maximize ROM, mobility, function, and educating pt on self care.
--- NOTE | 2018-10-15 15:41 | PT.OTN ---
Current Diagnoses Other enthesopathies, not elsewhere classified (10/15/18) Physical Therapy Treatment Note PT-OP-A Visit Information Start: 06/27/18 17:30 Freq: Status: Active Protocol: Document 10/15/18 09:49 LRN (Rec: 10/15/18 15:32 LRN [id number]) Out-Patient Physical Therapy Visit Information Visit Information Visit Type Treatment Note Visit Start Time 09:49 Visit Stop Time 10:37 Total Visit Minutes 48 Visit Number 18 Number of [employer] Visits 0 Evaluation Information Evaluation Date 06/30/18 PT-OP-B Current Condition Start: 06/27/18 17:30 Freq: Status: Active Protocol: Document 06/30/18 15:46 LRN (Rec: 06/30/18 16:51 LRN [id number]) Current Condition History of Current Condition Onset Date 04/29/2018 Current Complaints Tightness>Pain in R posterior upper arm. Treatment Goals Patient/Caregiver Goals Pt goal is to eliminate the pain, regain full motion of the R arm and shoulder. Prior Functional Status Baseline Function- ADL's Independent Baseline Function- Mobility Independent Baseline Function- Recreation/Hobbies Exercises at home with weights and aerobic exercise. Current Functional Impairments (Reported) Functional Limitations- ADL's Difficulty lifting overhead. Difficulty reaching behind the back for dressing and bathing . Functional Limitations- Recreation/ Stopped exercising with Hobbies weights, has continued with aerobic exercise. Personal Factors Other Personal Factors That May Effect None Therapy/Recovery PT-OP-C Subjective Start: 06/27/18 17:30 Freq: Status: Active Protocol: Document 10/15/18 09:49 LRN (Rec: 10/15/18 15:32 LRN [id number]) OP-PT Subjective Patient Comments Patient Comments States her mobility is improving, the onset of tightness in the back of the neck/shoulders is the biggest problem. PT-OP-F Manual Assessment Start: 06/27/18 17:30 Freq: Status: Active Protocol: Document 07/09/18 09:47 LRN (Rec: 07/09/18 10:35 LRN [id number]) Manual Assessments Soft Tissue Assessment Soft Tissue Mobility Assessment No tenderness in R posterior brachium or biceps in full extension. Joint Mobility Assessment Joint Mobility Assessment Shoulder PT-OP-H Neuro Start: 06/27/18 17:30 Freq: Status: Active Protocol: Document 06/30/18 15:46 LRN (Rec: 06/30/18 16:51 LRN [id number]) Sensation Evaluation Gross Sensation Gross Sensation WNL Deep Tendon Reflex & Clonus Assessment Deep Tendon Reflex Bilateral Brachioradialis Deep Tendon Reflex 2+ Normal Bilateral Tricep Deep Tendon Reflex 2+ Normal Bilateral Bicep Deep Tendon Reflex 2+ Normal PT-OP-J Posture/Palpation/Skin Start: 06/27/18 17:30 Freq: Status: Active Protocol: Document 07/09/18 09:47 LRN (Rec: 07/09/18 10:35 LRN [id number]) Palpation Assessment Location Two Palpation Location R Upper Trapezius Palpation Findings Soft Tissue Tightness Muscle Guarding Tenderness PT-OP-K Range of Motion Start: 06/27/18 17:30 Freq: Status: Active Protocol: Document 09/22/18 09:03 LRN (Rec: 09/22/18 09:50 LRN [id number]) Shoulder Goniometric Range of Motion Shoulder Measured in Degrees Right Passive Testing Position Supine Flexion 154 External Rotation at 90 degrees 62 Abduction Internal Rotation 50 Internal Rotation Behind Back (text) L1 Right Active Testing Position Supine Flexion 153 External Rotation at 90 degrees 58 Abduction Internal Rotation 45 Internal Rotation Behind Back (text) L3 PT-OP-L Special Tests Start: 06/27/18 17:30 Freq: Status: Active Protocol: Document 06/30/18 15:46 LRN (Rec: 06/30/18 16:51 LRN [id number]) Special Tests Other Special Tests Special Tests Cervical: Cervical Compression and Distraction: Negative. Foraminal Compression: Negative bilaterally. Shoulder: Impingement: Positive on Right with posterior brachium pain. PT-OP-M Strength Start: 06/27/18 17:30 Freq: Status: Active Protocol: Document 09/22/18 09:03 LRN (Rec: 09/22/18 09:58 LRN [id number]) Shoulder Strength Shoulder Manual Muscle Testing Right Flexion 5 Normal Abduction (C5) 2 Poor External Rotation 2 Poor Internal Rotation 5 Normal Left Reason Not Measured WFL PT-OP-Q Treatments Start: 06/27/18 17:30 Freq: Status: Active Protocol: Document 10/15/18 09:49 LRN (Rec: 10/15/18 15:32 LRN [id number]) Cardio Equipment Upper Body Ergometer (UBE) Duration (Minutes) 8 RPM 60 Seat Position 9 Height 8 Other fwd/bkwd Therapeutic Exercises Supine Exercises Shoulder AB Supine Exercise Name Stretch f/b active shoulder AB Side right Shouler AB Supine Exercise Name Shoulder AB with GH inferior glide f/b active shoulder AB with elbow flexed Side right Shoulder AD stretch Supine Exercise Name Horizontal AD stretch Side right Reps/Minutes 4' Shoulder IR stretch Supine Exercise Name PROM f/b AROM Side right Shoulder ER stretch Supine Exercise Name PROM f/b AROM Side right Scapular depression Supine Exercise Name LAT Pull down Side bilateral Resistance Lev 2 T-Band Equipment Used T-Band/Cane Reps/Minutes 15 x 2 Shoulder Flex Supine Exercise Name Stretch f/b active shoulder flex Side right Reps/Minutes 4' Manual Therapy Treatment Joint Mobilizations 1 Joint GH Direction Post/Inf Grade II Body Position Supine PT-OP-R Modalities Start: 06/27/18 17:30 Freq: Status: Active Protocol: Document 10/15/18 09:49 LRN (Rec: 10/15/18 15:15 N [id number]) Ultrasound Therapy Treatment R shoulder Treatment Duration (minutes) 8 Patient Position Supine Coupling Medium Ultrasound Gel Applicator Size (cm2) 5 Mode Setting Continuous Duty Cycle 100% Intensity Setting (w/cm2) 1.5 PT-OP-T Assessment and Plan Start: 06/27/18 17:30 Freq: Status: Active Protocol: Document 10/15/18 09:49 LRN (Rec: 10/15/18 15:32 LRN [id number]) Physical Therapy Assessment Progress Towards Goals Progress Towards Goals Progressing Toward Goals Slow Progress due to Activity Tolerance Progress Comments Goal #1: HEP progressing Goal #2: GOAL MET for reaching Goal #3 LTG: ROM feeling more easy to do, goal partially met . Pt able to put belt on and tuck her shirt in with the LUE with much difficulty. Assessment Summary Assessment Pt diagnosed with joon- menopausal frozen shoulder and has lessening signs of R shoulder impingement with decreased joint mobility. Focus on manual therapy and strengthening upper back & US due to finding it to be very helpful. Pt has had tightness from cervical scaleni, pec minor, and UE neural tension referring pain to her posterior upper arm. Limited flex, ABD, ER, horiz AD. Physical Therapy Plan Frequency and Duration Frequency of Treatment 2x/Week Plan of Care Start Date 10/05/18 Plan of Care End Date 11/23/18 Next Visit Focus/Plan Next Note Type Treatment Note Next Visit Plan Recheck scapular mobility. Maximize ROM, mobility, function, and educating pt on self care.
--- NOTE | 2018-10-22 14:25 | PT.OTN ---
Current Diagnoses Other enthesopathies, not elsewhere classified (10/22/18) Physical Therapy Treatment Note PT-OP-A Visit Information Start: 06/27/18 17:30 Freq: Status: Active Protocol: Document 10/22/18 09:06 LRN (Rec: 10/22/18 09:45 LRN [id number]) Out-Patient Physical Therapy Visit Information Visit Information Visit Type Treatment Note Visit Start Time 09:06 Visit Stop Time 10:38 Total Visit Minutes 49 Visit Number 19 Number of PLASTER MACHINE OPERATOR Visits 0 Evaluation Information Evaluation Date 06/30/18 PT-OP-B Current Condition Start: 06/27/18 17:30 Freq: Status: Active Protocol: Document 06/30/18 15:46 LRN (Rec: 06/30/18 16:51 LRN [id number]) Current Condition History of Current Condition Onset Date 04/29/2018 Current Complaints Tightness>Pain in R posterior upper arm. Treatment Goals Patient/Caregiver Goals Pt goal is to eliminate the pain, regain full motion of the R arm and shoulder. Prior Functional Status Baseline Function- ADL's Independent Baseline Function- Mobility Independent Baseline Function- Recreation/Hobbies Exercises at home with weights and aerobic exercise. Current Functional Impairments (Reported) Functional Limitations- ADL's Difficulty lifting overhead. Difficulty reaching behind the back for dressing and bathing . Functional Limitations- Recreation/ Stopped exercising with Hobbies weights, has continued with aerobic exercise. Personal Factors Other Personal Factors That May Effect None Therapy/Recovery PT-OP-C Subjective Start: 06/27/18 17:30 Freq: Status: Active Protocol: Document 10/22/18 09:06 LRN (Rec: 10/22/18 09:45 LRN [id number]) OP-PT Subjective Patient Comments Patient Comments Better, didn't even notice the arm, didn't get out of control. PT-OP-F Manual Assessment Start: 06/27/18 17:30 Freq: Status: Active Protocol: Document 07/09/18 09:47 LRN (Rec: 07/09/18 10:35 LRN [id number]) Manual Assessments Soft Tissue Assessment Soft Tissue Mobility Assessment No tenderness in R posterior brachium or biceps in full extension. Joint Mobility Assessment Joint Mobility Assessment Shoulder PT-OP-H Neuro Start: 06/27/18 17:30 Freq: Status: Active Protocol: Document 06/30/18 15:46 LRN (Rec: 06/30/18 16:51 LRN [id number]) Sensation Evaluation Gross Sensation Gross Sensation WNL Deep Tendon Reflex & Clonus Assessment Deep Tendon Reflex Bilateral Brachioradialis Deep Tendon Reflex 2+ Normal Bilateral Tricep Deep Tendon Reflex 2+ Normal Bilateral Bicep Deep Tendon Reflex 2+ Normal PT-OP-J Posture/Palpation/Skin Start: 06/27/18 17:30 Freq: Status: Active Protocol: Document 07/09/18 09:47 LRN (Rec: 07/09/18 10:35 LRN [id number]) Palpation Assessment Location Two Palpation Location R Upper Trapezius Palpation Findings Soft Tissue Tightness Muscle Guarding Tenderness PT-OP-K Range of Motion Start: 06/27/18 17:30 Freq: Status: Active Protocol: Document 09/22/18 09:03 LRN (Rec: 09/22/18 09:50 LRN [id number]) Shoulder Goniometric Range of Motion Shoulder Measured in Degrees Right Passive Testing Position Supine Flexion 154 External Rotation at 90 degrees 62 Abduction Internal Rotation 50 Internal Rotation Behind Back (text) L1 Right Active Testing Position Supine Flexion 153 External Rotation at 90 degrees 58 Abduction Internal Rotation 45 Internal Rotation Behind Back (text) L3 PT-OP-L Special Tests Start: 06/27/18 17:30 Freq: Status: Active Protocol: Document 06/30/18 15:46 LRN (Rec: 06/30/18 16:51 LRN [id number]) Special Tests Other Special Tests Special Tests Cervical: Cervical Compression and Distraction: Negative. Foraminal Compression: Negative bilaterally. Shoulder: Impingement: Positive on Right with posterior brachium pain. PT-OP-M Strength Start: 06/27/18 17:30 Freq: Status: Active Protocol: Document 09/22/18 09:03 LRN (Rec: 09/22/18 09:58 LRN [id number]) Shoulder Strength Shoulder Manual Muscle Testing Right Flexion 5 Normal Abduction (C5) 2 Poor External Rotation 2 Poor Internal Rotation 5 Normal Left Reason Not Measured WFL PT-OP-Q Treatments Start: 06/27/18 17:30 Freq: Status: Active Protocol: Document 10/22/18 09:06 LRN (Rec: 10/22/18 09:45 LRN [id number]) Cardio Equipment Upper Body Ergometer (UBE) Duration (Minutes) 7 RPM 60 Seat Position 9 Height 8 Other fwd/bkwd Recumbent Elliptical (Biodex) Duration (Minutes) 2 Resistance 1 Other UBE not available; therefore started warmup with Biodex Therapeutic Exercises Supine Exercises Shouler AB Supine Exercise Name Shoulder AB with GH inferior glide f/b active shoulder AB with elbow flexed Side right Shoulder AD stretch Supine Exercise Name Horizontal AD stretch Side right Reps/Minutes 4' Shoulder IR stretch Supine Exercise Name PROM f/b AROM Side right Shoulder ER stretch Supine Exercise Name PROM f/b AROM Side right Scapular depression Supine Exercise Name LAT Pull down Side bilateral Resistance Lev 2 T-Band Equipment Used T-Band/Cane Reps/Minutes 15 x 2 Shoulder Flex Supine Exercise Name Stretch f/b active shoulder flex Side right Reps/Minutes 4' Manual Therapy Treatment Soft Tissue Mobilization R UT Body Location R UT, Cervical paraspinals Mobilization Type Myofascial Release Sustained Pressure Body Position Supine Joint Mobilizations 1 Joint GH Direction Post/Inf Grade II Body Position Supine R Scapula Direction Distraction Grade III Body Position Sidelying Reps/Duration 4' Scapula Joint R Scapulae Direction Distraction Body Position Sidelying Reps/Duration 3 PT-OP-R Modalities Start: 06/27/18 17:30 Freq: Status: Active Protocol: Document 10/22/18 09:06 LRN (Rec: 10/22/18 11:10 LRN [id number]) Hot Pack/Cold Pack Treatment Cold Pack Location R Shoulder Patient Position Hooklying Treatment Duration (minutes) 10 Patient Tolerance Good PT-OP-T Assessment and Plan Start: 06/27/18 17:30 Freq: Status: Active Protocol: Document 10/22/18 09:06 LRN (Rec: 10/22/18 09:45 LRN [id number]) Physical Therapy Assessment Goals Three Impairment Decreased R shoulder IR AROM/ PROM due to pain Short Term Goal (STG) Pt will demonstrated functional passive ROM of the R shoulder for reaching behind the back. STG Duration 09/14/18 (08/25/18: Goal partially met) Drywall Foreman Goal (LTG) Pt will be able to put on her belt and tuck her shirt in the back without pain. (08/03/18: Mildly easier to put belt on and tuck shirt in). LTG Duration 10/23/18 (08/25/18: Goal partially met) Two Impairment Decreased R active shoulder mobility due to R posterior brachium pain. Drywall Foreman Goal (LTG) Pt will be able to reach overhead with mild discomfort to return to a light exercise home program. LTG Duration 08/27/18 (08/16/18) GOAL MET One Impairment Lacks appropriate self care HEP. Longterm Goal (LTG) Pt will be independent in a HEP. LTG Duration 10/23/18 (08/25/18: Progressing with goal) Progress Towards Goals Progress Towards Goals Progressing Toward Goals Progress Comments Goal #1: HEP progressing Goal #2: GOAL MET for reaching Goal #3 LTG: ROM feeling more easy to do, goal partially met . Pt able to put belt on and tuck her shirt in with the LUE with much difficulty. Assessment Summary Assessment Pt diagnosed with joon- menopausal frozen shoulder and has lessening signs of R shoulder impingement & decreased joint mobility. Pt has had tightness from cervical scaleni, pec minor, and UE neural tension and she has decreased R scapula and RC strength/stability. Limited flex, ABD, ER, horiz AD. Physical Therapy Plan Frequency and Duration Frequency of Treatment 2x/Week Plan of Care Start Date 10/05/18 Plan of Care End Date 11/23/18 Next Visit Focus/Plan Next Note Type Treatment Note Next Visit Plan Focus on Ultrasound for pain, manual therapy (stretch R GHJ & Scapula) and progress RC & upper back strengthening. Recheck R shoulder ROM and maximize ROM, mobility, function, and educate pt on self care.
--- NOTE | 2018-10-27 16:35 | PT.OTN ---
Current Diagnoses Other enthesopathies, not elsewhere classified (10/27/18) Physical Therapy Treatment Note PT-OP-A Visit Information Start: 06/27/18 17:30 Freq: Status: Active Protocol: Document 10/27/18 08:13 LRN (Rec: 10/27/18 09:02 LRN [id number]) Out-Patient Physical Therapy Visit Information Visit Information Visit Type Treatment Note Visit Start Time 08:13 Visit Stop Time 09:00 Total Visit Minutes 47 Visit Number 20 Number of DIAGNOSTIC CARDIAC SONOGRAPHER Visits 0 Evaluation Information Evaluation Date 06/30/18 PT-OP-B Current Condition Start: 06/27/18 17:30 Freq: Status: Active Protocol: Document 06/30/18 15:46 LRN (Rec: 06/30/18 16:51 LRN [id number]) Current Condition History of Current Condition Onset Date 04/29/2018 Current Complaints Tightness>Pain in R posterior upper arm. Treatment Goals Patient/Caregiver Goals Pt goal is to eliminate the pain, regain full motion of the R arm and shoulder. Prior Functional Status Baseline Function- ADL's Independent Baseline Function- Mobility Independent Baseline Function- Recreation/Hobbies Exercises at home with weights and aerobic exercise. Current Functional Impairments (Reported) Functional Limitations- ADL's Difficulty lifting overhead. Difficulty reaching behind the back for dressing and bathing . Functional Limitations- Recreation/ Stopped exercising with Hobbies weights, has continued with aerobic exercise. Personal Factors Other Personal Factors That May Effect None Therapy/Recovery PT-OP-C Subjective Start: 06/27/18 17:30 Freq: Status: Active Protocol: Document 10/27/18 08:13 LRN (Rec: 10/27/18 09:02 LRN [id number]) OP-PT Subjective Patient Comments Patient Comments States she was able to lie her arm back with it on her bed. States the pain across her shoulders after use of the R arm doesn't last for days anymore, usually better the next day. Patient Reported Progress Improving PT-OP-F Manual Assessment Start: 06/27/18 17:30 Freq: Status: Active Protocol: Document 07/09/18 09:47 LRN (Rec: 07/09/18 10:35 LRN [id number]) Manual Assessments Soft Tissue Assessment Soft Tissue Mobility Assessment No tenderness in R posterior brachium or biceps in full extension. Joint Mobility Assessment Joint Mobility Assessment Shoulder PT-OP-H Neuro Start: 06/27/18 17:30 Freq: Status: Active Protocol: Document 06/30/18 15:46 LRN (Rec: 06/30/18 16:51 LRN [id number]) Sensation Evaluation Gross Sensation Gross Sensation WNL Deep Tendon Reflex & Clonus Assessment Deep Tendon Reflex Bilateral Brachioradialis Deep Tendon Reflex 2+ Normal Bilateral Tricep Deep Tendon Reflex 2+ Normal Bilateral Bicep Deep Tendon Reflex 2+ Normal PT-OP-J Posture/Palpation/Skin Start: 06/27/18 17:30 Freq: Status: Active Protocol: Document 07/09/18 09:47 LRN (Rec: 07/09/18 10:35 LRN [id number]) Palpation Assessment Location Two Palpation Location R Upper Trapezius Palpation Findings Soft Tissue Tightness Muscle Guarding Tenderness PT-OP-K Range of Motion Start: 06/27/18 17:30 Freq: Status: Active Protocol: Document 09/22/18 09:03 LRN (Rec: 09/22/18 09:50 LRN [id number]) Shoulder Goniometric Range of Motion Shoulder Measured in Degrees Right Passive Testing Position Supine Flexion 154 External Rotation at 90 degrees 62 Abduction Internal Rotation 50 Internal Rotation Behind Back (text) L1 Right Active Testing Position Supine Flexion 153 External Rotation at 90 degrees 58 Abduction Internal Rotation 45 Internal Rotation Behind Back (text) L3 PT-OP-L Special Tests Start: 06/27/18 17:30 Freq: Status: Active Protocol: Document 06/30/18 15:46 LRN (Rec: 06/30/18 16:51 LRN [id number]) Special Tests Other Special Tests Special Tests Cervical: Cervical Compression and Distraction: Negative. Foraminal Compression: Negative bilaterally. Shoulder: Impingement: Positive on Right with posterior brachium pain. PT-OP-M Strength Start: 06/27/18 17:30 Freq: Status: Active Protocol: Document 09/22/18 09:03 LRN (Rec: 09/22/18 09:58 LRN [id number]) Shoulder Strength Shoulder Manual Muscle Testing Right Flexion 5 Normal Abduction (C5) 2 Poor External Rotation 2 Poor Internal Rotation 5 Normal Left Reason Not Measured WFL PT-OP-Q Treatments Start: 06/27/18 17:30 Freq: Status: Active Protocol: Document 10/27/18 08:13 LRN (Rec: 10/27/18 09:02 LRN [id number]) Cardio Equipment Upper Body Ergometer (UBE) Duration (Minutes) 10 RPM 60 Seat Position 9 Height 8 Other fwd/bkwd Therapeutic Exercises Supine Exercises Shoulder AB Supine Exercise Name Stretch f/b active shoulder AB Side right Shouler AB Supine Exercise Name Shoulder AB with GH inferior glide f/b active shoulder AB with elbow flexed Side right Shoulder IR stretch Supine Exercise Name PROM f/b AROM Side right Shoulder ER stretch Supine Exercise Name PROM f/b AROM Side right Scapular depression Supine Exercise Name LAT Pull down Side bilateral Resistance Lev 2 T-Band Equipment Used T-Band/Cane Reps/Minutes 15 x 2 Shoulder Flex Supine Exercise Name Stretch f/b active shoulder flex Side right Reps/Minutes 4' Standing Exercises Shoulder Flex Standing Exercise Name End-range strengthening Side bilateral Resistance Lev 2 T-Band Reps/Minutes 10x Shoulder ER/IR Standing Exercise Name T-Band strengthening Side right Resistance Lev 2 T-Band Reps/Minutes 6' Self-Care/Home Management Treatment Education Patient Education Home Exercise Program Activities Self-Care/Home Management Activities Issued & reviewed HEP: Pec minor stretch in supine PT-OP-R Modalities Start: 06/27/18 17:30 Freq: Status: Active Protocol: Document 10/27/18 08:13 LRN (Rec: 10/27/18 09:02 LRN [id number]) Ultrasound Therapy Treatment R shoulder Treatment Duration (minutes) 8 Patient Position Sitting Coupling Medium Ultrasound Gel Applicator Size (cm2) 5 Mode Setting Continuous Duty Cycle 100% Intensity Setting (w/cm2) 1.5 PT-OP-T Assessment and Plan Start: 06/27/18 17:30 Freq: Status: Active Protocol: Document 10/27/18 08:13 LRN (Rec: 10/27/18 09:02 LRN [id number]) Physical Therapy Assessment Progress Towards Goals Progress Towards Goals Progressing Toward Goals Progress Comments Goal #1: HEP progressing Goal #2: GOAL MET for reaching Goal #3 LTG: ROM feeling more easy to do, goal partially met . Pt able to put belt on and tuck her shirt in with the LUE with much difficulty. Assessment Summary Assessment Pt diagnosed with joon- menopausal frozen shoulder. There is lessening signs of R shoulder impingement & joint mobility is slowly improving. Shoulder IR today is worse than ER. Pt has had tightness from cervical scaleni, pec minor, and UE neural tension and she has decreased R scapula and RC strength/ stability. Limited flex, ABD, ER, horiz AD. Physical Therapy Plan Frequency and Duration Frequency of Treatment 2x/Week Plan of Care Start Date 10/05/18 Plan of Care End Date 11/23/18 Next Visit Focus/Plan Next Note Type Treatment Note Next Visit Plan Remeasure after stretching, start with scapular stretching . Focus on Ultrasound for pain, manual therapy (stretch R GHJ & Scapula) and progress RC & upper back strengthening. Cont to maximize ROM, mobility, function, and educate pt on self care.
--- NOTE | 2018-10-29 14:21 | PT.OTN ---
Current Diagnoses Other enthesopathies, not elsewhere classified (10/29/18) Physical Therapy Treatment Note PT-OP-A Visit Information Start: 06/27/18 17:30 Freq: Status: Active Protocol: Document 10/29/18 08:15 LRN (Rec: 10/29/18 08:25 LRN [id number]) Out-Patient Physical Therapy Visit Information Visit Information Visit Type Treatment Note Visit Start Time 08:15 Visit Stop Time 09:08 Total Visit Minutes 53 Visit Number 21 Number of TECHNICAL SPEC Visits 0 Evaluation Information Evaluation Date 06/30/18 PT-OP-B Current Condition Start: 06/27/18 17:30 Freq: Status: Active Protocol: Document 06/30/18 15:46 LRN (Rec: 06/30/18 16:51 LRN [id number]) Current Condition History of Current Condition Onset Date 04/29/2018 Current Complaints Tightness>Pain in R posterior upper arm. Treatment Goals Patient/Caregiver Goals Pt goal is to eliminate the pain, regain full motion of the R arm and shoulder. Prior Functional Status Baseline Function- ADL's Independent Baseline Function- Mobility Independent Baseline Function- Recreation/Hobbies Exercises at home with weights and aerobic exercise. Current Functional Impairments (Reported) Functional Limitations- ADL's Difficulty lifting overhead. Difficulty reaching behind the back for dressing and bathing . Functional Limitations- Recreation/ Stopped exercising with Hobbies weights, has continued with aerobic exercise. Personal Factors Other Personal Factors That May Effect None Therapy/Recovery PT-OP-C Subjective Start: 06/27/18 17:30 Freq: Status: Active Protocol: Document 10/29/18 08:15 LRN (Rec: 10/29/18 08:25 LRN [id number]) OP-PT Subjective Patient Comments Patient Comments Sore until 3p after the last visit, had to take a pain med and iced but fine the next day . PT-OP-F Manual Assessment Start: 06/27/18 17:30 Freq: Status: Active Protocol: Document 07/09/18 09:47 LRN (Rec: 07/09/18 10:35 LRN [id number]) Manual Assessments Soft Tissue Assessment Soft Tissue Mobility Assessment No tenderness in R posterior brachium or biceps in full extension. Joint Mobility Assessment Joint Mobility Assessment Shoulder PT-OP-H Neuro Start: 06/27/18 17:30 Freq: Status: Active Protocol: Document 06/30/18 15:46 LRN (Rec: 06/30/18 16:51 LRN [id number]) Sensation Evaluation Gross Sensation Gross Sensation WNL Deep Tendon Reflex & Clonus Assessment Deep Tendon Reflex Bilateral Brachioradialis Deep Tendon Reflex 2+ Normal Bilateral Tricep Deep Tendon Reflex 2+ Normal Bilateral Bicep Deep Tendon Reflex 2+ Normal PT-OP-J Posture/Palpation/Skin Start: 06/27/18 17:30 Freq: Status: Active Protocol: Document 07/09/18 09:47 LRN (Rec: 07/09/18 10:35 LRN [id number]) Palpation Assessment Location Two Palpation Location R Upper Trapezius Palpation Findings Soft Tissue Tightness Muscle Guarding Tenderness PT-OP-K Range of Motion Start: 06/27/18 17:30 Freq: Status: Active Protocol: Document 10/29/18 08:15 LRN (Rec: 10/29/18 08:25 LRN [id number]) Shoulder Goniometric Range of Motion Shoulder Measured in Degrees Right Passive Shoulder ROM WFL No Testing Position Supine External Rotation at 90 degrees 85 Abduction Right Active Shoulder ROM WFL No Testing Position Supine Flexion 160 External Rotation at 90 degrees 75 Abduction Internal Rotation 75 PT-OP-L Special Tests Start: 06/27/18 17:30 Freq: Status: Active Protocol: Document 06/30/18 15:46 LRN (Rec: 06/30/18 16:51 LRN [id number]) Special Tests Other Special Tests Special Tests Cervical: Cervical Compression and Distraction: Negative. Foraminal Compression: Negative bilaterally. Shoulder: Impingement: Positive on Right with posterior brachium pain. PT-OP-M Strength Start: 06/27/18 17:30 Freq: Status: Active Protocol: Document 09/22/18 09:03 LRN (Rec: 09/22/18 09:58 LRN [id number]) Shoulder Strength Shoulder Manual Muscle Testing Right Flexion 5 Normal Abduction (C5) 2 Poor External Rotation 2 Poor Internal Rotation 5 Normal Left Reason Not Measured WFL PT-OP-Q Treatments Start: 06/27/18 17:30 Freq: Status: Active Protocol: Document 10/29/18 08:15 LRN (Rec: 10/29/18 08:25 LRN [id number]) Cardio Equipment Upper Body Ergometer (UBE) Duration (Minutes) 10 RPM 60 Seat Position 9 Height 8 Other fwd/bkwd Gym Equipment Shuttle Recovery Other- 1 Details Hands on platform Push with UE 's Reps/Time 4' Therapeutic Exercises Supine Exercises Shoulder AB Supine Exercise Name Stretch f/b active shoulder AB Side right Shouler AB Supine Exercise Name Shoulder AB with GH inferior glide f/b active shoulder AB with elbow flexed Side right Shoulder AD stretch Supine Exercise Name Horizontal AD stretch Side right Reps/Minutes 4' Shoulder IR stretch Supine Exercise Name PROM f/b AROM Side right Shoulder ER stretch Supine Exercise Name PROM f/b AROM Side right Shoulder Flex Supine Exercise Name Stretch f/b active shoulder flex Side right Reps/Minutes 4' Standing Exercises Shoulder Flex Standing Exercise Name End-range strengthening Side bilateral Resistance Lev 2 T-Band Reps/Minutes 10x Manual Therapy Treatment Joint Mobilizations 1 Joint GH Direction Post/Inf Grade II Body Position Supine R Scapula Direction Distraction Grade III Body Position Sidelying Reps/Duration 4' PT-OP-R Modalities Start: 06/27/18 17:30 Freq: Status: Active Protocol: Document 10/29/18 08:15 LRN (Rec: 10/29/18 08:25 LRN [id number]) Ultrasound Therapy Treatment R shoulder Treatment Duration (minutes) 8 Patient Position Sitting Coupling Medium Ultrasound Gel Applicator Size (cm2) 5 Mode Setting Continuous Duty Cycle 100% Intensity Setting (w/cm2) 1.5 PT-OP-T Assessment and Plan Start: 06/27/18 17:30 Freq: Status: Active Protocol: Document 10/29/18 08:15 LRN (Rec: 10/29/18 08:25 LRN [id number]) Physical Therapy Assessment Goals Three Impairment Decreased R shoulder IR AROM/ PROM due to pain Short Term Goal (STG) Pt will demonstrated functional passive ROM of the R shoulder for reaching behind the back. STG Duration 09/14/18 (08/25/18: Goal partially met) Retirement Goal (LTG) Pt will be able to put on her belt and tuck her shirt in the back without pain. (08/03/18: Mildly easier to put belt on and tuck shirt in). LTG Duration 10/23/18 (08/25/18: Goal partially met) Two Impairment Decreased R active shoulder mobility due to R posterior brachium pain. Retirement Goal (LTG) Pt will be able to reach overhead with mild discomfort to return to a light exercise home program. LTG Duration 08/27/18 GOAL MET One Impairment Lacks appropriate self care HEP. Ios Programmer Goal (LTG) Pt will be independent in a HEP. LTG Duration 10/23/18 (08/25/18: Progressing with goal) Progress Towards Goals Progress Towards Goals Progressing Toward Goals Progress Comments Goal #1: HEP progressing Goal #2: GOAL MET for reaching Goal #3 LTG: ROM feeling more easy to do, goal partially met . Pt able to put belt on and tuck her shirt in with the LUE with much difficulty. Assessment Summary Assessment Pt diagnosed with joon- menopausal frozen shoulder. After stretching pt is able to achieve full R shoulder ER with end-range stiffness and pain, flexion is almost normal . Shoulder IR is worse than ER. Tightness present at cervical scaleni, pec minor, and UE neural tension and she has decreased R scapula and RC strength/stability. Physical Therapy Plan Frequency and Duration Frequency of Treatment 2x/Week Plan of Care Start Date 10/05/18 Plan of Care End Date 11/23/18 Next Visit Focus/Plan Next Note Type Treatment Note Next Visit Plan Check functional ability to reach behind back and tuck shirt in after stretching, start with scapular stretching . Focus on Ultrasound for pain relief after stretching, manual therapy (stretch R GHJ & Scapula) and progress RC & upper back strengthening. Cont to maximize ROM, mobility , function, and educate pt on self care.
--- NOTE | 2018-11-05 15:52 | PT.OTN ---
Current Diagnoses Other enthesopathies, not elsewhere classified (11/05/18) Physical Therapy Treatment Note PT-OP-A Visit Information Start: 06/27/18 17:30 Freq: Status: Active Protocol: Document 11/05/18 09:50 LRN (Rec: 11/05/18 10:33 LRN [id number]) Out-Patient Physical Therapy Visit Information Visit Information Visit Type Treatment Note Visit Start Time 09:50 Visit Stop Time 10:38 Total Visit Minutes 48 Visit Number 23 Number of HANDLING TECH Visits 0 Evaluation Information Evaluation Date 06/30/18 PT-OP-B Current Condition Start: 06/27/18 17:30 Freq: Status: Active Protocol: Document 06/30/18 15:46 LRN (Rec: 06/30/18 16:51 LRN [id number]) Current Condition History of Current Condition Onset Date 04/29/2018 Current Complaints Tightness>Pain in R posterior upper arm. Treatment Goals Patient/Caregiver Goals Pt goal is to eliminate the pain, regain full motion of the R arm and shoulder. Prior Functional Status Baseline Function- ADL's Independent Baseline Function- Mobility Independent Baseline Function- Recreation/Hobbies Exercises at home with weights and aerobic exercise. Current Functional Impairments (Reported) Functional Limitations- ADL's Difficulty lifting overhead. Difficulty reaching behind the back for dressing and bathing . Functional Limitations- Recreation/ Stopped exercising with Hobbies weights, has continued with aerobic exercise. Personal Factors Other Personal Factors That May Effect None Therapy/Recovery PT-OP-C Subjective Start: 06/27/18 17:30 Freq: Status: Active Protocol: Document 11/05/18 09:50 LRN (Rec: 11/05/18 10:33 LRN [id number]) OP-PT Subjective Patient Comments Patient Comments States the last treatment to the neck/shoulder helped to not have the tightness as much across the shoulders. PT-OP-F Manual Assessment Start: 06/27/18 17:30 Freq: Status: Active Protocol: Document 07/09/18 09:47 LRN (Rec: 07/09/18 10:35 LRN [id number]) Manual Assessments Soft Tissue Assessment Soft Tissue Mobility Assessment No tenderness in R posterior brachium or biceps in full extension. Joint Mobility Assessment Joint Mobility Assessment Shoulder PT-OP-H Neuro Start: 06/27/18 17:30 Freq: Status: Active Protocol: Document 06/30/18 15:46 LRN (Rec: 06/30/18 16:51 LRN [id number]) Sensation Evaluation Gross Sensation Gross Sensation WNL Deep Tendon Reflex & Clonus Assessment Deep Tendon Reflex Bilateral Brachioradialis Deep Tendon Reflex 2+ Normal Bilateral Tricep Deep Tendon Reflex 2+ Normal Bilateral Bicep Deep Tendon Reflex 2+ Normal PT-OP-J Posture/Palpation/Skin Start: 06/27/18 17:30 Freq: Status: Active Protocol: Document 07/09/18 09:47 LRN (Rec: 07/09/18 10:35 LRN [id number]) Palpation Assessment Location Two Palpation Location R Upper Trapezius Palpation Findings Soft Tissue Tightness Muscle Guarding Tenderness PT-OP-K Range of Motion Start: 06/27/18 17:30 Freq: Status: Active Protocol: Document 10/29/18 08:15 LRN (Rec: 10/29/18 08:25 LRN [id number]) Shoulder Goniometric Range of Motion Shoulder Measured in Degrees Right Passive Shoulder ROM WFL No Testing Position Supine External Rotation at 90 degrees 85 Abduction Right Active Shoulder ROM WFL No Testing Position Supine Flexion 160 External Rotation at 90 degrees 75 Abduction Internal Rotation 75 PT-OP-L Special Tests Start: 06/27/18 17:30 Freq: Status: Active Protocol: Document 06/30/18 15:46 LRN (Rec: 06/30/18 16:51 LRN [id number]) Special Tests Other Special Tests Special Tests Cervical: Cervical Compression and Distraction: Negative. Foraminal Compression: Negative bilaterally. Shoulder: Impingement: Positive on Right with posterior brachium pain. PT-OP-M Strength Start: 06/27/18 17:30 Freq: Status: Active Protocol: Document 09/22/18 09:03 LRN (Rec: 09/22/18 09:58 LRN [id number]) Shoulder Strength Shoulder Manual Muscle Testing Right Flexion 5 Normal Abduction (C5) 2 Poor External Rotation 2 Poor Internal Rotation 5 Normal Left Reason Not Measured WFL PT-OP-Q Treatments Start: 06/27/18 17:30 Freq: Status: Active Protocol: Document 11/05/18 09:50 LRN (Rec: 11/05/18 10:33 LRN [id number]) Cardio Equipment Upper Body Ergometer (UBE) Duration (Minutes) 10 RPM 60 Seat Position 9 Height 8 Other fwd/bkwd Gym Equipment Shuttle Recovery Other- 1 Details Hands on platform Push with UE 's Reps/Time Extra time to train pt correct form: from sup > wall pushouts > shuttle Therapeutic Exercises Supine Exercises Shoulder AB Supine Exercise Name Stretch f/b active shoulder AB Side right Shouler AB Supine Exercise Name Shoulder AB with GH inferior glide f/b active shoulder AB with elbow flexed Side right Shoulder IR stretch Supine Exercise Name PROM f/b AROM Side right Shoulder ER stretch Supine Exercise Name PROM f/b AROM Side right Shoulder Flex Supine Exercise Name Stretch f/b active shoulder flex Side right Reps/Minutes 4' Prone Exercises Rhomboid strengthening Prone Exercise Name Arm behind back with assist, with MWM @ neck, w/LUE holding in midline w/TB Reps/Minutes 10 Standing Exercises Rhomboid strengthening Standing Exercise Name 1 side row & arm hyper ext Side right Resistance Lev 2 T-Band Reps/Minutes 15x2 each Manual Therapy Treatment Joint Mobilizations 1 Joint GH Direction Post/Inf Grade II Body Position Supine R Scapula Direction Distraction Grade III Body Position Sidelying Reps/Duration 3' PT-OP-R Modalities Start: 06/27/18 17:30 Freq: Status: Active Protocol: Document 11/05/18 09:50 LRN (Rec: 11/05/18 10:33 LRN [id number]) Hot Pack/Cold Pack Treatment Cold Pack Location R Shoulder Patient Position Hooklying Treatment Duration (minutes) 10 Patient Tolerance Good PT-OP-T Assessment and Plan Start: 06/27/18 17:30 Freq: Status: Active Protocol: Document 11/05/18 09:50 LRN (Rec: 11/05/18 10:33 LRN [id number]) Physical Therapy Assessment Progress Towards Goals Progress Towards Goals Progressing Toward Goals Progress Comments ...............Goal #1: HEP progressing Goal #2: GOAL MET for reaching Goal #3 LTG: ROM GOAL MET. Goal #4 Added. Progressing. Assessment Summary Assessment Pt diagnosed with ojon- menopausal frozen shoulder. Increase in R Rhomboids muscle tone after ex's, with lessening of upper shoulder pain post ex. Pt is able to achieve full R shoulder ER with end-range stiffness and pain, flexion is almost normal after stretching. Shoulder IR is worse than ER. Tightness present at pec minor , decreased R scapula distraction mobility and RC strength/stability. No difference without Ultrasound (US) vs with US. Physical Therapy Plan Frequency and Duration Frequency of Treatment 2x/Week Plan of Care Start Date 10/05/18 Plan of Care End Date 11/23/18 Next Visit Focus/Plan Next Note Type Treatment Note Next Visit Plan DC US for now. Start with strengthening UBE warm up f/b manual therapy (stretch R GHJ, Scapula, MWM of C7, T1) and progress R Rhomboid, Serratus Anterior/upper back strengthening. Cont to maximize ROM, mobility, function, and educate pt on self care.
--- NOTE | 2018-11-10 11:25 | PT.OTN ---
Current Diagnoses Other enthesopathies, not elsewhere classified (11/10/18) Physical Therapy Treatment Note PT-OP-A Visit Information Start: 06/27/18 17:30 Freq: Status: Active Protocol: Document 11/10/18 09:09 LRN (Rec: 11/10/18 09:49 LRN [id number]) Out-Patient Physical Therapy Visit Information Visit Information Visit Type Treatment Note Visit Start Time 09:09 Visit Stop Time 09:54 Total Visit Minutes 45 Visit Number 24 Number of JACK SETTER Visits 0 Evaluation Information Evaluation Date 06/30/18 PT-OP-B Current Condition Start: 06/27/18 17:30 Freq: Status: Active Protocol: Document 06/30/18 15:46 LRN (Rec: 06/30/18 16:51 LRN [id number]) Current Condition History of Current Condition Onset Date 04/29/2018 Current Complaints Tightness>Pain in R posterior upper arm. Treatment Goals Patient/Caregiver Goals Pt goal is to eliminate the pain, regain full motion of the R arm and shoulder. Prior Functional Status Baseline Function- ADL's Independent Baseline Function- Mobility Independent Baseline Function- Recreation/Hobbies Exercises at home with weights and aerobic exercise. Current Functional Impairments (Reported) Functional Limitations- ADL's Difficulty lifting overhead. Difficulty reaching behind the back for dressing and bathing . Functional Limitations- Recreation/ Stopped exercising with Hobbies weights, has continued with aerobic exercise. Personal Factors Other Personal Factors That May Effect None Therapy/Recovery PT-OP-C Subjective Start: 06/27/18 17:30 Freq: Status: Active Protocol: Document 11/10/18 09:09 LRN (Rec: 11/10/18 11:14 LRN [id number]) OP-PT Subjective Patient Comments Patient Comments States she is much better, less pain across the shoulders . PT-OP-F Manual Assessment Start: 06/27/18 17:30 Freq: Status: Active Protocol: Document 07/09/18 09:47 LRN (Rec: 07/09/18 10:35 LRN [id number]) Manual Assessments Soft Tissue Assessment Soft Tissue Mobility Assessment No tenderness in R posterior brachium or biceps in full extension. Joint Mobility Assessment Joint Mobility Assessment Shoulder PT-OP-H Neuro Start: 06/27/18 17:30 Freq: Status: Active Protocol: Document 06/30/18 15:46 LRN (Rec: 06/30/18 16:51 LRN [id number]) Sensation Evaluation Gross Sensation Gross Sensation WNL Deep Tendon Reflex & Clonus Assessment Deep Tendon Reflex Bilateral Brachioradialis Deep Tendon Reflex 2+ Normal Bilateral Tricep Deep Tendon Reflex 2+ Normal Bilateral Bicep Deep Tendon Reflex 2+ Normal PT-OP-J Posture/Palpation/Skin Start: 06/27/18 17:30 Freq: Status: Active Protocol: Document 07/09/18 09:47 LRN (Rec: 07/09/18 10:35 LRN [id number]) Palpation Assessment Location Two Palpation Location R Upper Trapezius Palpation Findings Soft Tissue Tightness Muscle Guarding Tenderness PT-OP-K Range of Motion Start: 06/27/18 17:30 Freq: Status: Active Protocol: Document 10/29/18 08:15 LRN (Rec: 10/29/18 08:25 LRN [id number]) Shoulder Goniometric Range of Motion Shoulder Measured in Degrees Right Passive Shoulder ROM WFL No Testing Position Supine External Rotation at 90 degrees 85 Abduction Right Active Shoulder ROM WFL No Testing Position Supine Flexion 160 External Rotation at 90 degrees 75 Abduction Internal Rotation 75 PT-OP-L Special Tests Start: 06/27/18 17:30 Freq: Status: Active Protocol: Document 06/30/18 15:46 LRN (Rec: 06/30/18 16:51 LRN [id number]) Special Tests Other Special Tests Special Tests Cervical: Cervical Compression and Distraction: Negative. Foraminal Compression: Negative bilaterally. Shoulder: Impingement: Positive on Right with posterior brachium pain. PT-OP-M Strength Start: 06/27/18 17:30 Freq: Status: Active Protocol: Document 09/22/18 09:03 LRN (Rec: 09/22/18 09:58 LRN [id number]) Shoulder Strength Shoulder Manual Muscle Testing Right Flexion 5 Normal Abduction (C5) 2 Poor External Rotation 2 Poor Internal Rotation 5 Normal Left Reason Not Measured WFL PT-OP-Q Treatments Start: 06/27/18 17:30 Freq: Status: Active Protocol: Document 11/10/18 09:09 LRN (Rec: 11/10/18 09:49 LRN [id number]) Cardio Equipment Upper Body Ergometer (UBE) Duration (Minutes) 6 RPM 60 Height 7.5 Other Low chair, fwd/bkwd Therapeutic Exercises Supine Exercises Shoulder AB Supine Exercise Name Stretch f/b active shoulder AB Side right Shoulder IR stretch Supine Exercise Name PROM f/b AROM Side right Shoulder ER stretch Supine Exercise Name PROM f/b AROM Side right Scapular depression Supine Exercise Name LAT Pull down Side bilateral Resistance Lev 2 T-Band Equipment Used T-Band/Cane Reps/Minutes 15 x 2 Shoulder Flex Supine Exercise Name Stretch f/b active shoulder flex Side right Reps/Minutes 4' Prone Exercises Shoulder Extension Side right Resistance 1# Reps/Minutes 15x3 Comments Max hyperextension Row Prone Exercise Name Prone Row Side right Resistance 3# Reps/Minutes 15x3 Rhomboid strengthening Prone Exercise Name Arm behind back with assist, with MWM @ neck, w/LUE holding in midline w/TB Reps/Minutes 10 Shoulder IR Prone Exercise Name Hand behind back stretch & strengthening Side right Reps/Minutes 5 Shoulder exercise Prone Exercise Name Shoulder ER strengthening Side right Reps/Minutes 15x3 Standing Exercises Rhomboid strengthening Standing Exercise Name 1 side row & arm hyper ext Side right Resistance Lev 2 T-Band Reps/Minutes 15x2 each Shoulder ext Side right Resistance Lev 2 T-Band Reps/Minutes 110x3 Row Side right Reps/Minutes 10x3 Manual Therapy Treatment Joint Mobilizations 1 Joint GH Direction Post/Inf Grade II Body Position Supine PT-OP-R Modalities Start: 06/27/18 17:30 Freq: Status: Active Protocol: Document 11/05/18 09:50 LRN (Rec: 11/05/18 10:33 LRN [id number]) Hot Pack/Cold Pack Treatment Cold Pack Location R Shoulder Patient Position Hooklying Treatment Duration (minutes) 10 Patient Tolerance Good PT-OP-T Assessment and Plan Start: 06/27/18 17:30 Freq: Status: Active Protocol: Document 11/10/18 09:09 LRN (Rec: 11/10/18 09:49 LRN [id number]) Physical Therapy Assessment Assessment Summary Assessment Pt diagnosed with joon- menopausal frozen shoulder. Increasing R Rhomboids muscle tone noted; therefore decreasing upper neck pain. Pt is able to achieve full R shoulder ER with end-range stiffness and pain but needs horizontal AB stretching. Shoulder IR is worse than ER. Tightness present at pec minor, decreased R scapula distraction mobility and RC strength/stability. Physical Therapy Plan Frequency and Duration Frequency of Treatment 2x/Week Plan of Care Start Date 10/05/18 Plan of Care End Date 11/23/18 Next Visit Focus/Plan Next Note Type Treatment Note Next Visit Plan Start with strengthening UBE using low chair for warm up f/ b manual therapy (stretch R Scapula & GHJ, MWM of C7, T1 with ex), add horiz AB stretching/strengthening and progress R Rhomboid, Serratus Anterior/upper back strengthening. Cont to maximize R shoulder ROM, mobility, function, and educate pt on self care. DC in 2 visits.
--- NOTE | 2018-11-12 14:13 | PT.OTN ---
Current Diagnoses Other enthesopathies, not elsewhere classified (11/12/18) Physical Therapy Treatment Note PT-OP-A Visit Information Start: 06/27/18 17:30 Freq: Status: Active Protocol: Document 11/12/18 09:04 LRN (Rec: 11/12/18 09:44 LRN [id number]) Out-Patient Physical Therapy Visit Information Visit Information Visit Type Treatment Note Visit Start Time 09:04 Visit Stop Time 09:52 Total Visit Minutes 48 Visit Number 25 Number of CARBIDER Visits 0 Evaluation Information Evaluation Date 06/30/18 PT-OP-B Current Condition Start: 06/27/18 17:30 Freq: Status: Active Protocol: Document 06/30/18 15:46 LRN (Rec: 06/30/18 16:51 LRN [id number]) Current Condition History of Current Condition Onset Date 04/29/2018 Current Complaints Tightness>Pain in R posterior upper arm. Treatment Goals Patient/Caregiver Goals Pt goal is to eliminate the pain, regain full motion of the R arm and shoulder. Prior Functional Status Baseline Function- ADL's Independent Baseline Function- Mobility Independent Baseline Function- Recreation/Hobbies Exercises at home with weights and aerobic exercise. Current Functional Impairments (Reported) Functional Limitations- ADL's Difficulty lifting overhead. Difficulty reaching behind the back for dressing and bathing . Functional Limitations- Recreation/ Stopped exercising with Hobbies weights, has continued with aerobic exercise. Personal Factors Other Personal Factors That May Effect None Therapy/Recovery PT-OP-C Subjective Start: 06/27/18 17:30 Freq: Status: Active Protocol: Document 11/12/18 09:04 LRN (Rec: 11/12/18 09:44 LRN [id number]) OP-PT Subjective Patient Comments Patient Comments States tight behind the back and across the shoulders a little more last visit after all the exercise. PT-OP-F Manual Assessment Start: 06/27/18 17:30 Freq: Status: Active Protocol: Document 07/09/18 09:47 LRN (Rec: 07/09/18 10:35 LRN [id number]) Manual Assessments Soft Tissue Assessment Soft Tissue Mobility Assessment No tenderness in R posterior brachium or biceps in full extension. Joint Mobility Assessment Joint Mobility Assessment Shoulder PT-OP-H Neuro Start: 06/27/18 17:30 Freq: Status: Active Protocol: Document 06/30/18 15:46 LRN (Rec: 06/30/18 16:51 LRN [id number]) Sensation Evaluation Gross Sensation Gross Sensation WNL Deep Tendon Reflex & Clonus Assessment Deep Tendon Reflex Bilateral Brachioradialis Deep Tendon Reflex 2+ Normal Bilateral Tricep Deep Tendon Reflex 2+ Normal Bilateral Bicep Deep Tendon Reflex 2+ Normal PT-OP-J Posture/Palpation/Skin Start: 06/27/18 17:30 Freq: Status: Active Protocol: Document 07/09/18 09:47 LRN (Rec: 07/09/18 10:35 LRN [id number]) Palpation Assessment Location Two Palpation Location R Upper Trapezius Palpation Findings Soft Tissue Tightness Muscle Guarding Tenderness PT-OP-K Range of Motion Start: 06/27/18 17:30 Freq: Status: Active Protocol: Document 10/29/18 08:15 LRN (Rec: 10/29/18 08:25 LRN [id number]) Shoulder Goniometric Range of Motion Shoulder Measured in Degrees Right Passive Shoulder ROM WFL No Testing Position Supine External Rotation at 90 degrees 85 Abduction Right Active Shoulder ROM WFL No Testing Position Supine Flexion 160 External Rotation at 90 degrees 75 Abduction Internal Rotation 75 PT-OP-L Special Tests Start: 06/27/18 17:30 Freq: Status: Active Protocol: Document 06/30/18 15:46 LRN (Rec: 06/30/18 16:51 LRN [id number]) Special Tests Other Special Tests Special Tests Cervical: Cervical Compression and Distraction: Negative. Foraminal Compression: Negative bilaterally. Shoulder: Impingement: Positive on Right with posterior brachium pain. PT-OP-M Strength Start: 06/27/18 17:30 Freq: Status: Active Protocol: Document 09/22/18 09:03 LRN (Rec: 09/22/18 09:58 LRN [id number]) Shoulder Strength Shoulder Manual Muscle Testing Right Flexion 5 Normal Abduction (C5) 2 Poor External Rotation 2 Poor Internal Rotation 5 Normal Left Reason Not Measured WFL PT-OP-Q Treatments Start: 06/27/18 17:30 Freq: Status: Active Protocol: Document 11/12/18 09:04 LRN (Rec: 11/12/18 14:08 LRN [id number]) Cardio Equipment Upper Body Ergometer (UBE) Duration (Minutes) 10 RPM 60 Height 7.5 Other Low chair, fwd/bkwd Therapeutic Exercises Supine Exercises Shoulder AB Supine Exercise Name Stretch f/b active shoulder AB Side right Comments Assist for scapular retraining Shouler AB Supine Exercise Name Shoulder AB with GH inferior glide f/b active shoulder AB with elbow flexed Side right Shoulder IR stretch Supine Exercise Name PROM f/b AROM Side right Shoulder ER stretch Supine Exercise Name PROM f/b AROM Side right Comments Extra time taken for scapular training Shoulder Flex Supine Exercise Name Stretch f/b active shoulder flex Side right Reps/Minutes 4' Comments Extra time taken for scapular training Manual Therapy Treatment Joint Mobilizations R Scapula Direction Distraction Grade III Body Position Sidelying Reps/Duration 3' PT-OP-R Modalities Start: 06/27/18 17:30 Freq: Status: Active Protocol: Document 11/12/18 09:04 LRN (Rec: 11/12/18 14:08 LRN [id number]) Hot Pack/Cold Pack Treatment Cold Pack Location R Shoulder Patient Position Hooklying Treatment Duration (minutes) 10 Patient Tolerance Good PT-OP-T Assessment and Plan Start: 06/27/18 17:30 Freq: Status: Active Protocol: Document 11/12/18 09:04 LRN (Rec: 11/12/18 09:44 LRN [id number]) Physical Therapy Assessment Assessment Summary Assessment Pt diagnosed with joon- menopausal frozen shoulder. Increasing R Rhomboids muscle tone noted; therefore decreasing upper neck pain. Pt is able to achieve full R shoulder ER with very end- range stiffness and pain. Improved tolerance to horizontal AB with manual scapular stab assist. Shoulder rotation motions are improving. R scapula distraction mobility improving and RC strength/stability. Physical Therapy Plan Frequency and Duration Frequency of Treatment 2x/Week Plan of Care Start Date 10/05/18 Plan of Care End Date 11/23/18 Next Visit Focus/Plan Next Note Type Treatment Note Next Visit Plan Review for DC to HEP. End with strengthening using UBE from low chair if time available. Manual therapy ( stretch R Scapula & GHJ, MWM of C7, T1 with ex), review self care. add horiz AB stretching/ strengthening, review R Rhomboid, Serratus Anterior/ upper back strengthening. DC to HEP. Pt survey.
--- NOTE | 2018-11-17 15:18 | PT.OTN ---
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 Treatment Goals Patient/Caregiver Goals Pt goal is to eliminate the pain, regain full motion of the R arm and shoulder. Prior Functional Status Baseline Function- ADL's Independent Baseline Function- Mobility Independent Baseline Function- Recreation/Hobbies Exercises at home with weights and aerobic exercise. Current Functional Impairments (Reported) Functional Limitations- ADL's Difficulty lifting overhead. Difficulty reaching behind the back for dressing and bathing . Functional Limitations- Recreation/ Stopped exercising with Hobbies weights, has continued with aerobic exercise. 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 States she had one episode of pain across the shoulders after ex. Managed to control the pain with head and meds to a tolerable level within 2 days. Patient Questionnaires Neck Disability Index NDI Score 6 Neck Disability Index Impairment 1 to 19% Impaired (Score 1-9) Quick Dash- Upper Extremity Quick Dash UE Score 11.36 Quick Dash UE Impairment 1 to 19% Impaired (Score 1-19) OP-PT Pain Assessment Location Neck & Across shoulders Pain Location Details Posterior neck and upper back at T2-T3 Intensity 2 Posterior R upper Brachium, Pain Location Details Lateral upper shoulder ( Deltoid) Intensity 2 PT-OP-F Manual Assessment Start: 06/27/18 17:30 Freq: Status: Active Protocol: Document 07/09/18 09:47 LRN (Rec: 07/09/18 10:35 LRN [id number]) Manual Assessments Soft Tissue Assessment Soft Tissue Mobility Assessment No tenderness in R posterior brachium or biceps in full extension. Joint Mobility Assessment Joint Mobility Assessment Shoulder PT-OP-H Neuro Start: 06/27/18 17:30 Freq: Status: Active Protocol: Document 06/30/18 15:46 LRN (Rec: 06/30/18 16:51 LRN [id number]) Sensation Evaluation Gross Sensation Gross Sensation WNL Deep Tendon Reflex & Clonus Assessment Deep Tendon Reflex Bilateral Brachioradialis Deep Tendon Reflex 2+ Normal Bilateral Tricep Deep Tendon Reflex 2+ Normal Bilateral Bicep Deep Tendon Reflex 2+ Normal PT-OP-J Posture/Palpation/Skin Start: 06/27/18 17:30 Freq: Status: Active Protocol: Document 11/17/18 09:03 LRN (Rec: 11/17/18 09:58 LRN [id number]) Palpation Assessment Location Two Palpation Location R Upper Trapezius Palpation Findings Soft Tissue Tightness One Palpation Location R shoulder Palpation Findings Soft Tissue Tightness Palpation Details Tightness at Deltoid attachment site. PT-OP-K Range of Motion Start: 06/27/18 17:30 Freq: Status: Active Protocol: Document 11/17/18 09:03 LRN (Rec: 11/17/18 09:58 LRN [id number]) Shoulder Goniometric Range of Motion Shoulder Measured in Degrees Left Passive Testing Position Supine Flexion 168 Abduction 100 External Rotation at 45 degrees 80 Abduction Internal Rotation 80 Internal Rotation Behind Back (text) T3 Right Passive Shoulder ROM WFL No Testing Position Supine Flexion 168 Abduction 145 External Rotation at 90 degrees 90 Abduction Internal Rotation 55 Internal Rotation Behind Back (text) T12 Right Active Shoulder ROM WFL No Testing Position Supine Flexion 168 Abduction 145 External Rotation at 90 degrees 82 Abduction Internal Rotation 58 Internal Rotation Behind Back (text) L1 Shoulder ROM Limitations Shoulder ROM Limitations Soft Tissue Tightness Muscle Weakness Comments R active shoulder ROM in sitting: Flex is 155 deg's bilateral AB is 170 deg's bilateral PT-OP-L Special Tests Start: 06/27/18 17:30 Freq: Status: Active Protocol: Document 06/30/18 15:46 LRN (Rec: 06/30/18 16:51 LRN [id number]) Special Tests Other Special Tests Special Tests Cervical: Cervical Compression and Distraction: Negative. Foraminal Compression: Negative bilaterally. Shoulder: Impingement: Positive on Right with posterior brachium pain. PT-OP-M Strength Start: 06/27/18 17:30 Freq: Status: Active Protocol: Document 11/17/18 09:03 LRN (Rec: 11/17/18 09:58 LRN [id number]) Shoulder Strength Shoulder Manual Muscle Testing Right Extension 3+ Fair+ Abduction (C5) 3+ Fair+ Adduction 3+ Fair+ External Rotation 5 Normal Internal Rotation 4+ Good+ Horizontal Abduction 3+ Fair+ Horizontal Adduction 4+ Good+ Left Flexion 5 Normal Extension 5 Normal Abduction (C5) 5 Normal Adduction 3+ Fair+ External Rotation 5 Normal Internal Rotation 5 Normal Horizontal Abduction 3+ Fair+ Horizontal Adduction 5 Normal PT-OP-Q Treatments Start: 06/27/18 17:30 Freq: Status: Active Protocol: Document 11/17/18 09:03 LRN (Rec: 11/17/18 09:58 LRN [id number]) Cardio Equipment Upper Body Ergometer (UBE) Duration (Minutes) 10 RPM 60 Height 7.5 Therapeutic Exercises Supine Exercises Shoulder AB Supine Exercise Name Stretch f/b active shoulder AB Side right Comments Assist for scapular retraining Shouler AB Supine Exercise Name Shoulder AB with GH inferior glide f/b active shoulder AB with elbow flexed Side right Shoulder IR stretch Supine Exercise Name PROM f/b AROM Side right Shoulder ER stretch Supine Exercise Name PROM f/b AROM Side right Comments Extra time taken for scapular training Shoulder Flex Supine Exercise Name Stretch f/b active shoulder flex Side right Reps/Minutes 4' Self-Care/Home Management Treatment Education Patient Education Home Exercise Program Activities Self-Care/Home Management Activities Reviewed pt's HEP. Issued & reviewed HEP: Shoulder horiz AD/AB krisat bent elbows, AROM shld retraction krista, & strengthening shld retract bilateral. PT-OP-R Modalities Start: 06/27/18 17:30 Freq: Status: Active Protocol: Document 04/18/19 09:04 LRN (Rec: 04/18/19 14:08 LRN [id number]) Hot Pack/Cold Pack Treatment Cold Pack Location R Shoulder Patient Position Hooklying Treatment Duration (minutes) 10 Patient Tolerance Good PT-OP-T Assessment and Plan Start: 06/27/18 17:30 Freq: Status: Active Protocol: Document 11/17/18 09:03 LRN (Rec: 11/17/18 09:58 LRN [id number]) Physical Therapy Assessment Goals Four Impairment Pt unable to reach behind back to bra strap with RUE. Short Term Goal (STG) Pt will be able to reach her bra strap behind her back with moderate difficulty. STG Duration 11/23/18 (11/17/18: GOAL NOT MET) Three Impairment Decreased R shoulder IR AROM/ PROM due to pain Short Term Goal (STG) Pt will demonstrated functional passive ROM of the R shoulder for reaching behind the back. STG Duration 09/14/18 (11/03/18: GOAL MET) Residential Goal (LTG) Pt will be able to put on her belt and tuck her shirt in the back without pain. LTG Duration 10/23/18 (11/03/18: GOAL MET) Two Impairment Decreased R active shoulder mobility due to R posterior brachium pain. Residential Goal (LTG) Pt will be able to reach overhead with mild discomfort to return to a light exercise home program. LTG Duration 08/27/18 GOAL MET One Impairment Lacks appropriate self care HEP. Residential Goal (LTG) Pt will be independent in a HEP. LTG Duration 10/23/18 (11/17/18: GOAL MET) Progress Towards Goals Progress Towards Goals Progressing Toward Goals Progress Comments Goal #1: GOAL MET Goal #2: GOAL MET Goal #3 LTG: ROM GOAL MET. Goal #4 Added 11/12/18. GOAL NOT MET. Assessment Summary Assessment Pt diagnosed with joon- menopausal frozen shoulder. Pt is able to achieve symmetry of shoulder Flex & ER with very end-range stiffness and pain. She shows improved tolerance to horizontal AB with manual scapular stab assist. Shoulder IR mobility is expected to improve over time. The pt feels ready to be placed on a HEP to improve her mobility and strength of the R shoulder. Physical Therapy Plan Frequency and Duration Plan of Care Start Date 10/05/18 Plan of Care End Date 11/23/18 Discharge Physical Therapy Discharge Reasons Patient Request Discharge Comments Pt goals were met except goal #4 that was set 1 week ago. She is ready to continue on her HEP. The pt has weakness of the R shoulder and limited shoulder IR mobility. She has ocassional onset of pain across her shoulders that appears to be mechanically related to her Thoracic spine. The pt will seek a new referral for physical therapy if she feels further need for therapy. Thank you for your referral
== END 2018-11-23 08:42 | disposition home or self-care (01) ==
LOC: PHYS 09:00
PROVIDERS: PCP Family Medicine; Visit Provider Internal Medicine
DX: M77.8 Other enthesopathies, not elsewhere classified (principal)
CPT/HCPCS: 97010; 97035; 97110; 97140; 97161; 97535

== ENCOUNTER → 2019-01-20 11:05 | Outpatient (CLI) | payer OTHER, SELFPAY ==
--- NOTE | 2019-01-20 11:13 | DI.RAD.S_ITS ---
PROCEDURE: XR CERVICAL SPINE 2V OR 3V INDICATIONS: Neck pain TECHNIQUE: 3 view(s) of the cervical spine were acquired. COMPARISON: None. FINDINGS: Bones: No fractures or dislocations to the T1 level. The lateral masses of C1 appear intact on the odontoid view. No suspicious bony lesions. Straightening of the normal lordotic curvature. Multilevel degenerative endplate sclerosis and spurring. Diffuse facet arthropathy. Grade I minimal anterolisthesis of C7 on T1. Mild narrowing of the C7-T1 disc space. Soft tissues: No prevertebral soft tissue swelling. IMPRESSION: Mild C7-T1 degeneration and grade 1 anterolisthesis. Diffuse facet arthropathy. Dictated by: Darwin Rojas M.D. on 01/20/2019 at 13:19 Approved by: Darwin Rojas M.D. on 01/20/2019 at 13:20
== END ==
PROVIDERS: PCP Family Medicine; Visit Provider Family Medicine
DX: M50.33 Other cervical disc degeneration, cervicothoracic region (principal); M47.812 Spondylosis without myelopathy or radiculopathy, cervical region; M43.13 Spondylolisthesis, cervicothoracic region
CPT/HCPCS: 72040

== ENCOUNTER → 2019-02-02 16:09 | Outpatient (CLI) | payer OTHER, SELFPAY | PROVIDERS: PCP Family Medicine; Visit Provider Family Medicine | DX: M25.519 Pain in unspecified shoulder (principal) ==

== ENCOUNTER → 2019-02-24 10:23 | Outpatient (CLI) | payer OTHER, SELFPAY ==
--- NOTE | 2019-02-24 10:24 | DI.MG.S_ITS ---
BILATERAL DIGITAL SCREENING MAMMOGRAM 3D/2D WITH CAD: 02/24/2019 CLINICAL: Routine screening. Comparison is made to exams dated: 02/11/2018 mammogram, 02/04/2017 mammogram, and 12/20/2015 mammogram - [facility]. The tissue of both breasts is heterogeneously dense. This may lower the sensitivity of mammography. Current study was also evaluated with a Computer Aided Detection (CAD) system. No significant masses, calcifications, or other findings are seen in either breast. There has been no significant interval change. IMPRESSION: NEGATIVE There is no mammographic evidence of malignancy. A 1 year screening mammogram is recommended. This exam was interpreted at Station ID: [id number]. NOTE: For mammograms, a report in lay terms will be sent to the patient. Approximately 15% of breast malignancies will not be visualized mammographically. In the management of a palpable breast mass, a negative mammogram must not discourage biopsy of a clinically suspicious lesion. Electronically Signed By: Mercedez cross/jannette:02/24/2019 15:34:43 letter sent: Normal Exam ACR BI-RADS Category 1: Negative 3341F
== END ==
PROVIDERS: PCP Family Medicine; Visit Provider Family Medicine
DX: Z12.31 Encounter for screening mammogram for malignant neoplasm of breast (principal); Z12.39 Encounter for other screening for malignant neoplasm of breast
CPT/HCPCS: 77063; 77067

== ENCOUNTER → 2020-03-01 10:56 | Outpatient (CLI) | payer OTHER, SELFPAY ==
--- NOTE | 2020-03-01 | DI.MG.S_ITS ---
BILATERAL DIGITAL SCREENING MAMMOGRAM 3D/2D WITH CAD: 03/01/2020 CLINICAL: Routine screening. Comparison is made to exams dated: 02/24/2019 mammogram, 02/11/2018 mammogram, and 02/04/2017 mammogram - [facility]. The tissue of both breasts is heterogeneously dense. This may lower the sensitivity of mammography. Current study was also evaluated with a Computer Aided Detection (CAD) system. No significant masses, calcifications, or other findings are seen in either breast. There has been no significant interval change. IMPRESSION: NEGATIVE There is no mammographic evidence of malignancy. A 1 year screening mammogram is recommended. This exam was interpreted at Station ID: [id number]. NOTE: For mammograms, a report in lay terms will be sent to the patient. Approximately 15% of breast malignancies will not be visualized mammographically. In the management of a palpable breast mass, a negative mammogram must not discourage biopsy of a clinically suspicious lesion. Electronically Signed By: Davin poole/jannette:03/01/2020 11:19:18 letter sent: Normal Exam ACR BI-RADS Category 1: Negative 3341F
== END ==
PROVIDERS: PCP Family Medicine; Referring Provider Family Medicine; Visit Provider Family Medicine
DX: Z12.31 Encounter for screening mammogram for malignant neoplasm of breast (principal)
CPT/HCPCS: 77063; 77067

== ENCOUNTER → 2020-05-04 07:03 | Outpatient (CLI) | payer OTHER, SELFPAY ==
[2020-05-04 08:50] LABS: Add Manual Diff / Slide Review NO; Basophils Absolute Auto 0 /uL (0-100); Basophils Percent Auto 0.7 % (0-2); Eosinophils Absolute Auto 300 /uL (0-450); Eosinophils Percent Auto 4.5 % (2-4); Hematocrit 43.4 % (36-46); Hemoglobin 14.8 g/dL (12.0-16.0); Lymphocytes Absolute Auto 1700 /uL (1100-4500); Lymphocytes Percent Auto 29.1 % (25-40); Mean Corpuscular HGB Conc 34.1 % (30-36); Mean Corpuscular Hemoglobin 31.5 PG (26-34); Mean Corpuscular Volume 92.4 fL (80-100); Monocytes Absolute Auto 600 /uL (0-900); Monocytes Percent Auto 9.6 % (3-14); Neutrophils Absolute Auto 3200 /uL (1500-7000); Neutrophils Percent Auto 56.1 % (50-75); Platelet Count 157 X10^3/uL (150-400); Red Cell Distribution Width 13.1 % (11.6-14.8); White Blood Cell Count 5.8 X10^3/uL (4.5-11.0)
[2020-05-04 09:41] LABS: Alanine Aminotransferase 21 IU/L (<35); Albumin 4.2 g/dL (3.5-5.0); Albumin Globulin Ratio 1.6 (1.0-2.8); Alkaline Phosphatase 57 U/L (38-126); Aspartate Aminotransferase 25 IU/L (14-36); BUN Creatinine Ratio 23.6 (6-22); Bilirubin Total 0.9 mg/dL (0.2-1.3); Blood Urea Nitrogen 21 mg/dL (7-17); Calcium 9.1 mg/dL (8.4-10.2); Carbon Dioxide 32 mmol/L (22-32); Chloride 103 mmol/L (98-107); Cholesterol 132 mg/dL (140-199); Estimated Glomerular Filt Rate > 60.0 mL/min (>60); Globulin 2.7 g/dL (1.7-4.1); Glucose 83 mg/dL (80-110); HDL Cholesterol 44 mg/dL (40-60); HEMOLYSIS < 15 (0-50); LDL Cholesterol Calculated 73 mg/dL (<100); Potassium 4.6 mmol/L (3.4-5.1); Sodium 140 mmol/L (137-145); Total Protein 6.9 g/dL (6.3-8.2); Triglycerides 77 mg/dL (35-150)
== END ==
PROVIDERS: PCP Family Medicine; Referring Provider Family Medicine; Visit Provider Family Medicine
DX: E78.5 Hyperlipidemia, unspecified (principal); I49.9 Cardiac arrhythmia, unspecified
CPT/HCPCS: 36415; 80053; 80061; 85025

== ENCOUNTER → 2020-05-23 13:09 | Outpatient (CLI) | payer OTHER, SELFPAY | PROVIDERS: PCP Family Medicine; Referring Provider Family Medicine; Visit Provider Family Medicine | DX: Z78.0 Asymptomatic menopausal state (principal); Z90.722 Acquired absence of ovaries, bilateral | CPT/HCPCS: 77080 ==

== ENCOUNTER → 2020-06-12 09:30 | Outpatient (CLI) | payer OTHER, SELFPAY ==
[2020-06-12 10:36] LABS: COVID19 -Nasal RAPID Negative (Negative)
== END ==
PROVIDERS: PCP Family Medicine; Visit Provider Specialist
DX: Z11.59 Encounter for screening for other viral diseases (principal)
CPT/HCPCS: 87635; C9803

== ENCOUNTER 2020-06-13 07:26 | Day surgery (SDC) | payer OTHER, SELFPAY ==
[2020-06-13 07:50] VITALS: BP 154/77; PULSE 71; RESP 16; TEMP 36.2; O2SAT 99; BMI 28.8
[2020-06-13] MEDS: LACTATED RINGERS 1,000 ML 150 ML IV (07:59)
--- NOTE | 2020-06-13 09:37 | P.HP_ITS ---
History of Present Illness History of Present Illness Date Patient Seen: 06/13/20 Time Patient Seen: 09:29 Chief complaint: SCREENING COLONOSCOPY Narrative: The patient is here for screening colonoscopy. Her last exam was 10 years ago. No family history of colon cancer Patient History Medical History Chicken pox Fibroids Measles Plantar warts (~1976) Surgical History Anesthesia Status post hysterectomy (~2011) Status post laparoscopy (~2009) Family & Social History Family History Father Age: 83 Heart disease Hypertension High cholesterol Grandmother Cervical cancer Heart disease Mother Age: 80 Rheumatoid arthritis Grandfather Stroke Grandfather No problems noted. Grandmother No problems noted. Social History: household members spouse Tobacco & Substance use: Smoking Status Never smoker alcohol intake frequency holiday/special occasion Substance Use Type does not use Meds Home Medications and Allergies Home Medications Medication Instructions Recorded Confirmed Type MULTIVITAMIN 1 cap PO Q DAY #0 07/01/11 06/13/20 History alprazolam 0.25 mg tablet See Rx Instructions .ROUTE 02/03/19 06/13/20 Rx .COMPLEX #4 tab atorvastatin 10 mg tablet See Rx Instructions .ROUTE 02/21/20 06/13/20 Rx .COMPLEX #180 tab estradiol 0.025 mg/24 hr weekly 1 patch TRANSDERMAL QWEEK #4 each 04/19/20 06/13/20 Rx transdermal patch Allergies Allergy/AdvReac Type Severity Reaction Status Date / Time No Known Drug Allergies Allergy Verified 06/13/20 07:57 Review of Systems Review of Systems Narrative: Wears glasses. Elevated cholesterol. ROS: Yes All systems reviewed with the patient and are negative except as otherwise documented Exam Vital Signs (past 8 hours): - 06/13/20 07:50 Temperature 97.1 F L Pulse Rate 71 Respiratory Rate 16 Blood Pressure 154/77 H Pulse Oximetry 99 Oxygen Delivery Method Room Air Narrative Exam Narrative: Pleasant cooperative patient no apparent distress. Lungs are cl ear to auscultation. No rales or rhonchi. Heart regular rate and rhythm no murmur gallop. Abdomen is soft nontender without mass. No obvious hernias. Patient is alert and oriented x3. Assessment & Plan Assessment & Plan narrative: The patient for a screening colonoscopy. I have discussed the procedure with them. Risks of bleeding, perforation which would necessitate major operation, failure to find remove all lesions, the potential tattoo were all discussed. All questions were answered. They wished to proceed.
--- NOTE | 2020-06-13 09:38 | PM.PREOP ---
Pre-operative Note COVID-19 COVID-19 status: Negative Result date/Date tested (Pos, Neg/Pending): 06/10/20 Interval Note History & Physical reviewed/Exam performed by Physician: Yes Changes to H&P: No ASA Class (for procedural sedation): I
[2020-06-13] MEDS: fentaNYL 250 MCG/5 ML INJ IV (10:01)
[2020-06-13] MEDS: MIDAZOLAM 5 MG/5 ML VIAL IV (10:01)
[2020-06-13 10:31] VITALS: BP 122/63; PULSE 78; RESP 95; TEMP 36.6; O2SAT 15
--- NOTE | 2020-06-13 10:34 | PM.OP.ENDO ---
Operative Date/Time/Diagnoses Date of procedure: 06/13/20 Time of procedure: 10:24 Pre-op diagnosis: Screening exam. Last colonoscopy 10 years ago. No family history of colon cancer. Post-op diagnosis: same Procedure & Clinicians Study performed: Colonoscopy Same procedure as scheduled: Yes Indications: Screening Surgeon: Terrell Gutierrez Procedure Notes SCOAP/Timeout: Performed Procedure in detail: The patient was placed in the left lateral decubitus position and underwent IV sedation directed by the surgeon consisting of fentanyl and Versed. Digital exam was unremarkable. The scope was inserted and advanced through the rectum into the sigmoid, descending, transverse, and ascending colon. The colon was somewhat elongated and tortuous. To make our way through the colon and ultimately to the cecum the patient had to be repositioned a stiffener placed and pressure applied to the abdomen. The cecum was reached identified by the ileocecal valve and the appendiceal opening. The scope was gradually brought out. No Polyps were found. The scope ultimately attempted to be retroflexed in the rectum. I could not do so so I slowly brought the scope through the anal verge. The appearance was normal. The scope was removed and the patient tolerated the procedure well. The prep was very good. Scope withdrawal time: Almost 11 minutes Sedation minutes: 45 Findings: other findings (Somewhat elongated and twisted:) Specimen(s): none sent Complications: none Post-procedure Recommendations: Colonscopy in 10 years Follow up: as needed Disposition: PACU
[2020-06-13 10:36] VITALS: BP 122/64; PULSE 69; RESP 17; O2SAT 96
[2020-06-13 10:38] VITALS: BP 119/66; PULSE 69; RESP 16; O2SAT 96
[2020-06-13 10:41] VITALS: BP 119/66; PULSE 69; RESP 19; O2SAT 96
--- NOTE | 2020-06-13 10:41 | SUR.PHASEI ---
Arrived in PACU awake, has remained awake w/o pain throughout pacu stay. Denies pain, tolerated PO well. Discharge papers not yet ready from the doctor.
[2020-06-13 10:45] VITALS: BP 106/61; PULSE 67; RESP 16; TEMP 36.6; O2SAT 97
--- NOTE | 2020-06-13 10:52 | SUR.PHASEII ---
IV out, patient getting dressed. Stable and pleasant.
== END 2020-06-13 11:00 | disposition home or self-care (01) ==
PROVIDERS: PCP Family Medicine; Referring Provider Family Medicine; Visit Provider Specialist
PROC: 0DJD8ZZ Inspection of Lower Intestinal Tract, Via Natural or Artificial Opening Endoscopic (ICD-10-PCS; CPT 45378; principal; 2020-06-13 08:30)
DX: Z12.11 Encounter for screening for malignant neoplasm of colon (principal); Z86.010 Personal history of colon polyps
CPT/HCPCS: 45378; 99152; 99153; J2250; J3010

== ENCOUNTER → 2020-10-11 18:05 | Outpatient (CLI) | payer OTHER, SELFPAY ==
--- NOTE | 2020-10-11 18:06 | DI.MRI.S_ITS ---
PROCEDURE: MR ANGIO HEAD WO CON INDICATIONS: pulsatile tinnitus for 6 months TECHNIQUE: Noncontrast axial 3-D [id number] MR angiogram, with 3-dimensional maximum intensity projection (MIP) reformats of the internal carotid arteries and posterior circulation then performed. COMPARISON: None. FINDINGS: Image quality: Excellent. Anterior circulation: Intracranial internal carotid arteries demonstrate normal size and intraluminal flow signal. The flow within the paired anterior cerebral arteries is normal and symmetric. The flow within the middle cerebral arteries is normal and symmetric. The anterior communicating artery is seen. No stenoses, occlusions, or aneurysms. Posterior circulation: Visualized portions of the vertebral arteries demonstrate normal caliber, and join to form a normal appearing basilar artery. The flow within the posterior cerebral arteries is normal and symmetric. No stenoses, occlusions, or aneurysms. IMPRESSION: Negative cerebral MR angiography. Dictated by: Joe Peraza M.D. on 10/12/2020 at 8:39 Approved by: Joe Peraza M.D. on 10/12/2020 at 8:40
== END ==
PROVIDERS: PCP Family Medicine; Referring Provider Family Medicine; Visit Provider Family Medicine
DX: H93.A9 Pulsatile tinnitus, unspecified ear (principal)
CPT/HCPCS: 70544

== ENCOUNTER → 2021-01-30 10:52 | Outpatient (CLI) | payer OTHER, SELFPAY ==
--- NOTE | 2021-01-30 10:54 | DI.RAD.S_ITS ---
PROCEDURE: XR KNEE LT 3V INDICATIONS: Knee pain TECHNIQUE: 3 views of the knee were acquired. COMPARISON: None. FINDINGS: Bones: No fractures or dislocations. No suspicious bony lesions. Minimal medial and patellofemoral compartment narrowing. No erosions or significant periarticular osteophytes. Soft tissues: No joint effusion. No suspicious soft tissue calcifications. IMPRESSION: Early degenerative change most notable in the medial and patellofemoral compartments. Dictated by: Elida Calhoun M.D. on 01/30/2021 at 11:27 Approved by: Elida Calhoun M.D. on 01/30/2021 at 11:27
== END ==
PROVIDERS: PCP Family Medicine; Referring Provider Physician Assistant; Visit Provider Physician Assistant
DX: M25.562 Pain in left knee (principal)
CPT/HCPCS: 73562

== ENCOUNTER → 2021-03-21 11:00 | Outpatient (CLI) | payer OTHER, SELFPAY ==
--- NOTE | 2021-03-21 | DI.MG.S_ITS ---
BILATERAL DIGITAL SCREENING MAMMOGRAM 3D/2D WITH CAD: 03/21/2021 CLINICAL: Routine screening. Comparison is made to exams dated: 03/01/2020 mammogram, 02/24/2019 mammogram, and 02/11/2018 mammogram - [facility]. The tissue of both breasts is heterogeneously dense. This may lower the sensitivity of mammography. Current study was also evaluated with a Computer Aided Detection (CAD) system. No significant masses, calcifications, or other findings are seen in either breast. There has been no significant interval change. IMPRESSION: NEGATIVE There is no mammographic evidence of malignancy. A 1 year screening mammogram is recommended. This exam was interpreted at Station ID: [id number]. NOTE: For mammograms, a report in lay terms will be sent to the patient. Approximately 15% of breast malignancies will not be visualized mammographically. In the management of a palpable breast mass, a negative mammogram must not discourage biopsy of a clinically suspicious lesion. Electronically Signed By: Jorge Lowery M.D., jr/jannette:03/21/2021 12:44:08 letter sent: Normal Exam ACR BI-RADS Category 1: Negative 3341F
== END ==
PROVIDERS: PCP Family Medicine; Referring Provider Family Medicine; Visit Provider Family Medicine
DX: Z12.31 Encounter for screening mammogram for malignant neoplasm of breast (principal)
CPT/HCPCS: 77063; 77067

== ENCOUNTER → 2021-08-14 09:42 | Outpatient (CLI) | payer OTHER, SELFPAY ==
[2021-08-14 10:30] LABS: Add Manual Diff / Slide Review NO; Basophils Absolute Auto 0 /uL (0-100); Basophils Percent Auto 0.6 % (0-2); Eosinophils Absolute Auto 200 /uL (0-450); Eosinophils Percent Auto 3.1 % (2-4); Hemoglobin 14.8 g/dL (12.0-16.0); Lymphocytes Absolute Auto 1600 /uL (1100-4500); Lymphocytes Percent Auto 29.1 % (25-40); Mean Corpuscular HGB Conc 34.4 % (30-36); Mean Corpuscular Hemoglobin 31.2 PG (26-34); Mean Corpuscular Volume 90.7 fL (80-100); Monocytes Absolute Auto 400 /uL (0-900); Neutrophils Absolute Auto 3300 /uL (1500-7000); Neutrophils Percent Auto 60.2 % (50-75); Platelet Count 154 X10^3/uL (150-400); Red Blood Cell Count 4.74 X10^6/uL (4.0-5.2); White Blood Cell Count 5.5 X10^3/uL (4.5-11.0)
[2021-08-14 11:12] LABS: Alanine Aminotransferase 20 IU/L (<35); Albumin 4.2 g/dL (3.5-5.0); Albumin Globulin Ratio 1.7 (1.0-2.8); Alkaline Phosphatase 57 U/L (38-126); Aspartate Aminotransferase 22 IU/L (14-36); BUN Creatinine Ratio 18.6 (6-22); Bilirubin Total 0.7 mg/dL (0.2-1.3); Blood Urea Nitrogen 16 mg/dL (7-17); Calcium 9.1 mg/dL (8.4-10.2); Carbon Dioxide 31 mmol/L (22-32); Chloride 105 mmol/L (98-107); Cholesterol 130 mg/dL (140-199); Estimated Glomerular Filt Rate > 60.0 mL/min (>60); Globulin 2.5 g/dL (1.7-4.1); Glucose 96 mg/dL (80-110); HDL Cholesterol 37 mg/dL (40-60); HEMOLYSIS < 15 (0-50); LDL Cholesterol Calculated 74 mg/dL (<100); Potassium 4.2 mmol/L (3.4-5.1); Sodium 141 mmol/L (137-145); Total Protein 6.7 g/dL (6.3-8.2); Triglycerides 93 mg/dL (35-150)
[2021-08-14 11:41] LABS: TSH w/ Reflex to FT4 2.08 uIU/mL (0.47-4.68)
[2021-08-14 16:24] LABS: Hep C Virus Ab w/Reflex Quant NEGATIVE s/c (NEGATIVE)
== END ==
PROVIDERS: PCP Family Medicine; Referring Provider Family Medicine; Visit Provider Family Medicine
DX: E28.39 Other primary ovarian failure (principal); E78.5 Hyperlipidemia, unspecified; I49.9 Cardiac arrhythmia, unspecified; M25.562 Pain in left knee; Z11.59 Encounter for screening for other viral diseases
CPT/HCPCS: 36415; 80053; 80061; 84443; 85025; 86803

== ENCOUNTER → 2022-03-26 11:26 | Outpatient (CLI) | payer OTHER, SELFPAY ==
--- NOTE | 2022-03-26 | DI.MG.S_ITS ---
BILATERAL DIGITAL SCREENING MAMMOGRAM 3D/2D WITH CAD: 03/26/2022 CLINICAL: Routine screening. Comparison is made to exams dated: 03/21/2021 mammogram, 03/01/2020 mammogram, and 02/24/2019 mammogram - [facility]. Both breasts are heterogeneously dense, which may obscure small masses (category c / 51-75% glandular tissue). Current study was also evaluated with a Computer Aided Detection (CAD) system. No significant masses, calcifications, or other findings are seen in either breast. There has been no significant interval change. IMPRESSION: NEGATIVE There is no mammographic evidence of malignancy. A 1 year screening mammogram is recommended. Based on the Tyrer Cuzick model (a risk assessment model) the patient's lifetime risk is 11.8% and her 10 year risk is 5.3%. According to the ACR, ACS, and NCCN guidelines, an annual breast MRI exam along with mammogram is recommended if the patient's lifetime risk is 20% or greater. This exam was interpreted at Station ID: [id number]. NOTE: For mammograms, a report in lay terms will be sent to the patient. Approximately 15% of breast malignancies will not be visualized mammographically. In the management of a palpable breast mass, a negative mammogram must not discourage biopsy of a clinically suspicious lesion. Electronically Signed By: Mercedez cross/jannette:03/26/2022 15:32:21 letter sent: Normal Exam ACR BI-RADS Category 1: Negative 3341F
== END ==
PROVIDERS: PCP Family Medicine; Referring Provider Family Medicine; Visit Provider Family Medicine
DX: Z12.31 Encounter for screening mammogram for malignant neoplasm of breast (principal)
CPT/HCPCS: 77063; 77067

== ENCOUNTER → 2022-10-24 08:55 | Outpatient (CLI) | payer OTHER, SELFPAY ==
[2022-10-24 10:02] LABS: Add Manual Diff / Slide Review NO; Basophils Absolute Auto 0 /uL (0-100); Basophils Percent Auto 0.8 % (0-2); Eosinophils Absolute Auto 200 /uL (0-450); Eosinophils Percent Auto 3.3 % (2-4); Hematocrit 41.8 % (36-46); Hemoglobin 14.4 g/dL (12.0-16.0); Lymphocytes Absolute Auto 1500 /uL (1100-4500); Lymphocytes Percent Auto 27.7 % (25-40); Mean Corpuscular HGB Conc 34.5 % (30-36); Mean Corpuscular Hemoglobin 31.4 PG (26-34); Monocytes Absolute Auto 500 /uL (0-900); Monocytes Percent Auto 8.6 % (3-14); Neutrophils Absolute Auto 3300 /uL (1500-7000); Neutrophils Percent Auto 59.6 % (50-75); Platelet Count 159 X10^3/uL (150-400); Red Blood Cell Count 4.59 X10^6/uL (4.0-5.2); Red Cell Distribution Width 13.1 % (11.6-14.8); White Blood Cell Count 5.6 X10^3/uL (4.5-11.0)
[2022-10-24 10:21] LABS: Alanine Aminotransferase 31 IU/L (<35); Albumin 4.1 g/dL (3.5-5.0); Albumin Globulin Ratio 1.4 (1.0-2.8); Alkaline Phosphatase 61 U/L (38-126); Aspartate Aminotransferase 28 IU/L (14-36); BUN Creatinine Ratio 20.3 (6-22); Bilirubin Total 0.7 mg/dL (0.2-1.3); Blood Urea Nitrogen 16 mg/dL (7-17); Calcium 8.9 mg/dL (8.4-10.2); Carbon Dioxide 34 mmol/L (22-32); Chloride 103 mmol/L (98-107); Cholesterol 148 mg/dL (140-199); Estimated Glomerular Filt Rate > 60 mL/min (>60); Glucose 96 mg/dL (80-110); HDL Cholesterol 40 mg/dL (40-60); HEMOLYSIS < 15 (0-50); LDL Cholesterol Calculated 92 mg/dL (<100); Potassium 4.6 mmol/L (3.4-5.1); Sodium 140 mmol/L (137-145); Total Protein 7.1 g/dL (6.3-8.2); Triglycerides 80 mg/dL (35-150)
[2022-10-24 10:51] LABS: TSH w/ Reflex to FT4 2.59 uIU/mL (0.47-4.68)
== END ==
PROVIDERS: PCP Family Medicine; Referring Provider Family Medicine; Visit Provider Family Medicine
DX: E28.39 Other primary ovarian failure (principal); E78.2 Mixed hyperlipidemia; I49.9 Cardiac arrhythmia, unspecified
CPT/HCPCS: 36415; 80053; 80061; 84443; 85025

== ENCOUNTER → 2023-03-27 08:26 | Outpatient (CLI) | payer OTHER, SELFPAY ==
--- NOTE | 2023-03-27 | DI.MG.S_ITS ---
BILATERAL DIGITAL SCREENING MAMMOGRAM 3D/2D WITH CAD: 03/27/2023 CLINICAL: Routine screening. Comparison is made to exams dated: 03/26/2022 mammogram, 03/21/2021 mammogram, and 03/01/2020 mammogram - [facility]. Both breasts are heterogeneously dense, which may obscure small masses (category c / 51-75% glandular tissue). Current study was also evaluated with a Computer Aided Detection (CAD) system. No significant masses, calcifications, or other findings are seen in either breast. There has been no significant interval change. IMPRESSION: NEGATIVE There is no mammographic evidence of malignancy. A 1 year screening mammogram is recommended. Based on the Tyrer Cuzick model (a risk assessment model) the patient's lifetime risk is 11.4% and her 10 year risk is 5.3%. According to the ACR, ACS, and NCCN guidelines, an annual breast MRI exam along with mammogram is recommended if the patient's lifetime risk is 20% or greater. This exam was interpreted at Station ID: [id number]. NOTE: For mammograms, a report in lay terms will be sent to the patient. Approximately 15% of breast malignancies will not be visualized mammographically. In the management of a palpable breast mass, a negative mammogram must not discourage biopsy of a clinically suspicious lesion. Electronically Signed By: Wang fallon/jannette:04/06/2023 14:32:05 letter sent: Normal Exam ACR BI-RADS Category 1: Negative 3341F
== END ==
PROVIDERS: PCP Family Medicine; Referring Provider Family Medicine; Visit Provider Family Medicine
DX: Z12.31 Encounter for screening mammogram for malignant neoplasm of breast (principal)
CPT/HCPCS: 77063; 77067

== ENCOUNTER → 2023-10-22 10:14 | Outpatient (CLI) | payer OTHER, SELFPAY ==
[2023-10-22 11:13] LABS: Add Manual Diff / Slide Review NO; Basophils Absolute Auto 0 /uL (0-100); Basophils Percent Auto 0.6 % (0-2); Eosinophils Absolute Auto 200 /uL (0-450); Eosinophils Percent Auto 3.1 % (2-4); Hematocrit 44.9 % (36-46); Hemoglobin 15.2 g/dL (12.0-16.0); Lymphocytes Absolute Auto 1700 /uL (1100-4500); Lymphocytes Percent Auto 28.5 % (25-40); Mean Corpuscular HGB Conc 33.8 % (30-36); Mean Corpuscular Hemoglobin 31.2 PG (26-34); Mean Corpuscular Volume 92.5 fL (80-100); Monocytes Absolute Auto 500 /uL (0-900); Neutrophils Absolute Auto 3500 /uL (1500-7000); Neutrophils Percent Auto 59.8 % (50-75); Platelet Count 192 X10^3/uL (150-400); Red Blood Cell Count 4.85 X10^6/uL (4.0-5.2); Red Cell Distribution Width 13.3 % (11.6-14.8); White Blood Cell Count 5.9 X10^3/uL (4.5-11.0)
[2023-10-22 15:55] LABS: Alanine Aminotransferase 31 IU/L (<35); Albumin 4.1 g/dL (3.5-5.0); Albumin Globulin Ratio 1.5 (1.0-2.8); Alkaline Phosphatase 57 U/L (38-126); Aspartate Aminotransferase 31 IU/L (14-36); Bilirubin Total 0.9 mg/dL (0.2-1.3); Blood Urea Nitrogen 17 mg/dL (7-17); Calcium 9.3 mg/dL (8.4-10.2); Carbon Dioxide 32 mmol/L (22-32); Chloride 105 mmol/L (98-107); Cholesterol 167 mg/dL (140-199); Estimated Glomerular Filt Rate > 60 mL/min (>60); Globulin 2.7 g/dL (1.7-4.1); Glucose 92 mg/dL (80-110); HDL Cholesterol 46 mg/dL (40-60); HEMOLYSIS < 15 (0-50); LDL Cholesterol Calculated 102 mg/dL (<100); Potassium 4.5 mmol/L (3.4-5.1); Sodium 141 mmol/L (137-145); Total Protein 6.8 g/dL (6.3-8.2); Triglycerides 97 mg/dL (35-150)
[2023-10-23 08:50] LABS: Apolipoprotein B 94 mg/dL (<90)
== END ==
PROVIDERS: PCP Family Medicine; Referring Provider Family Medicine; Visit Provider Family Medicine
DX: E78.5 Hyperlipidemia, unspecified (principal); Z80.8 Family history of malignant neoplasm of other organs or systems; E28.39 Other primary ovarian failure; I49.9 Cardiac arrhythmia, unspecified
CPT/HCPCS: 36415; 80053; 80061; 82172; 85025

== ENCOUNTER → 2024-03-16 09:47 | Outpatient (CLI) | payer MEDICARE, OTHER, SELFPAY ==
--- NOTE | 2024-03-16 10:00 | DI.RAD.S_ITS ---
PROCEDURE: XR DEXA AXIAL SKELETON INDICATIONS: Age 64 due for Dexa COMPARISON: [facility], CATHY, XR DEXA AXIAL SKELETON, 05/23/2020, 13:38. FINDINGS: Lumbar Spine: Bone mineral density 0.951 g/cm2, T score -0.9, previously -0.3. Left Hip: Bone mineral density 0.982 g/cm2, T score 0.3, previously 0.4. Left Femoral Neck: Bone mineral density 0.851 g/cm2, T score 0, previously 0.1. Right Hip: Bone mineral density 0.971 g/cm2, T score 0.2, previously 0.3. Right Femoral Neck: Bone mineral density 0.858 g/cm2, T score 0.1, previously 0.0. Fracture Risk Calculation (when applicable): Not reported due to normal bone mineral density. (T score greater or equal to -1.0 to: NORMAL) (T score from -1.1 to -2.4: OSTEOPENIA) (T score less than or equal to -2.5: OSTEOPOROSIS) IMPRESSION: Normal bone mineral density. Follow-up guidelines as follows: Osteoporosis: Consider a repeat DEXA and Vertebral Fracture Assessment (VFA) exam in 2 years or sooner if medically necessary, to reassess this patient's status. Osteopenia: Consider a repeat DEXA in 2-3 years to reassess this patient's status, or if there is a new clinical indication. Normal: Consider a repeat DEXA in 5 years or sooner, or if there is a new clinical indication. All treatment decisions require clinical judgment and consideration of individual patient factors, including patient preferences, comorbidities, previous drug use, risk factors not captured in the FRAX model (e.g., frailty, falls, vitamin D deficiency, increased bone turnover, interval significant decline in bone density ) and possible under- or over-estimation of fracture risk by FRAX. In addition, the NOF Guide recommends that FDA-approved medical therapies be considered in postmenopausal women and men age >= 50 years with a: * Hip or vertebral (clinical or morphometric) fracture * T-score of <=-2.5 at the spine or hip * Ten-year fracture probability by FRAX of >= 3% for hip fracture or >=20% for major osteoporotic fracture. People with diagnosed cases of osteoporosis or at high risk for fracture should have regular bone mineral density tests. For patients eligible for Medicare, routine testing is allowed once every 2 years. The testing frequency can be increased to one year for patients who have rapidly progressing disease, those who are receiving or discontinuing medical therapy to restore bone mass, or have additional risk factors. Dictated by: Bay Escobedo M.D. on 03/16/2024 at 15:09 Approved by: Bay Escobedo M.D. on 03/16/2024 at 15:10
== END ==
PROVIDERS: PCP Family Medicine; Referring Provider Family Medicine; Visit Provider Family Medicine
DX: Z78.0 Asymptomatic menopausal state (principal)
CPT/HCPCS: 77080

== ENCOUNTER → 2024-04-07 12:43 | Outpatient (CLI) | payer MEDICARE, OTHER, SELFPAY ==
--- NOTE | 2024-04-07 12:45 | DI.MG.S_ITS ---
BILATERAL DIGITAL SCREENING MAMMOGRAM 3D/2D WITH CAD: 04/07/2024 CLINICAL: Routine screening. Comparison is made to exams dated: 03/27/2023 mammogram, 03/26/2022 mammogram, and 03/21/2021 mammogram - [facility]. The breasts are heterogeneously dense, which may obscure small masses (category c / 51-75% glandular tissue). Current study was also evaluated with a Computer Aided Detection (CAD) system. No significant masses, calcifications, or other findings are seen in either breast. There has been no significant interval change. IMPRESSION: NEGATIVE There is no mammographic evidence of malignancy. A 1 year screening mammogram is recommended. Based on the Tyrer Cuzick model (a risk assessment model) the patient's lifetime risk is 11.0% and her 10 year risk is 5.3%. According to the ACR, ACS, and NCCN guidelines, an annual breast MRI exam along with mammogram is recommended if the patient's lifetime risk is 20% or greater. This exam was interpreted at Station ID: [id number]. NOTE: For mammograms, a report in lay terms will be sent to the patient. Approximately 15% of breast malignancies will not be visualized mammographically. In the management of a palpable breast mass, a negative mammogram must not discourage biopsy of a clinically suspicious lesion. Electronically Signed By: Wang fallon/jannette:04/08/2024 07:59:24 letter sent: Normal Exam ACR BI-RADS Category 1: Negative [id number]
== END ==
PROVIDERS: PCP Family Medicine; Referring Provider Family Medicine; Visit Provider Family Medicine
DX: Z12.31 Encounter for screening mammogram for malignant neoplasm of breast (principal); R92.333 Mammographic heterogeneous density, bilateral breasts
CPT/HCPCS: 77063; 77067

== ENCOUNTER → 2025-05-03 12:40 | Outpatient (CLI) | payer MEDICARE, OTHER, SELFPAY ==
--- NOTE | 2025-05-03 12:43 | DI.MG.S_ITS ---
MM screening mammo BI: 05/03/2025. BI-RADS: 0 CLINICAL: 65-year old female for bilateral screening mammogram. Tyrer-Cuzick lifetime risk of 11.3%. No personal or first-degree family history of breast cancer. PRIOR EXAMS: 04/07/2024, 03/27/2023, 03/26/2022, 03/21/2021, 03/01/2020, 02/24/2019, 02/11/2018, 02/04/2017, 12/20/2015, 12/05/2014. MAMMOGRAPHY TECHNIQUE: 2D and 3D (tomosynthesis) digital mammographic views obtained, with additional images as needed for full coverage. Current study was also evaluated with a Computer Aided Detection (CAD) system. DENSITY C. The breasts are heterogeneously dense, which may obscure small masses. MAMMOGRAPHY FINDINGS Right: No suspicious mass, asymmetry, microcalcification, or other abnormality seen. Left: Outer Central, Middle depth: Focal asymmetry needing additional imaging evaluation. IMPRESSION: Right * No evidence of malignancy. Left (Asymmetry): Outer Central, Middle depth * Incomplete - focal asymmetry needing additional imaging evaluation. RECOMMENDATIONS Left: Outer Central, Middle depth * Further evaluation with diagnostic mammography and diagnostic ultrasound. Ultrasound to be performed only if needed. OVERALL ASSESSMENT CATEGORY BI-RADS-0: Incomplete - Need Additional Imaging Evaluation. ELECTRONICALLY SIGNED: Sharon Carpenter M.D. on 05/03/2025 at 11:13:57 PM PT Interpreting Station ID: [id number]
== END ==
LOC: MAMMO 12:42
PROVIDERS: PCP Family Medicine; Referring Provider Family Medicine; Visit Provider Family Medicine
DX: Z12.31 Encounter for screening mammogram for malignant neoplasm of breast (principal); R92.8 Other abnormal and inconclusive findings on diagnostic imaging of breast
CPT/HCPCS: 77063; 77067

== ENCOUNTER → 2025-05-23 11:53 | Outpatient (CLI) | payer MEDICARE, OTHER, SELFPAY ==
--- NOTE | 2025-05-23 11:54 | DI.MG.S_ITS ---
MM diagnostic mammo unilat LT, US breast LT limited: 05/23/2025 BI-RADS: 2 CLINICAL: 65-year old female for left diagnostic mammogram and left diagnostic breast ultrasound that is a recall from screening on 05/03/2025. Tyrer-Cuzick lifetime risk of 11.3%. No personal or first-degree family history of breast cancer. PRIOR EXAMS Mammogram(s): 05/03/2025, 04/07/2024, 03/27/2023, 03/26/2022, 03/21/2021. MAMMOGRAPHY TECHNIQUE: 2D and 3D (tomosynthesis) digital mammographic views obtained, with additional images as needed for full coverage. Current study was also evaluated with a Computer Aided Detection (CAD) system. ULTRASOUND TECHNIQUE TARGETED Left Breast Ultrasound: Real-time ultrasound exam was performed focused to area of clinical and/or imaging concern. Real-time cortés scale and color doppler imaging of the area of clinical interest was performed with image documentation. DENSITY Left: C. The breast is heterogeneously dense, which may obscure small masses. MAMMOGRAPHY FINDINGS Left (finding-1): Outer Central, Middle depth, measuring 0.4cm: Correlating with findings on screening mammogram there is a circumscribed, oval, equal-density mass present. ULTRASOUND FINDINGS Left (finding-1): Lower Outer at 4:00, 2 cm from nipple, measuring 0.4 x 0.3 x 0.4 cm. Previous report: Outer Central: Correlating with findings on mammogram, there is a simple anechoic cyst showing posterior acoustic enhancement. Doppler shows no vascularity. IMPRESSION: Left * No evidence of malignancy with benign findings. RECOMMENDATIONS Bilateral * Annual screening mammography. COMMENTS: Findings and recommendations were conveyed to the patient during today's evaluation. OVERALL ASSESSMENT CATEGORY BI-RADS-2: Benign. The [employer] recommends annual screening mammography beginning at age 40 for women with average risk of breast cancer. ELECTRONICALLY SIGNED: Sharon Carpenter M.D. on 05/23/2025 at 12:49:57 PM PT Interpreting Station ID: [id number]
== END ==
PROVIDERS: PCP Family Medicine; Referring Provider Family Medicine; Visit Provider Family Medicine
DX: R92.8 Other abnormal and inconclusive findings on diagnostic imaging of breast (principal); R92.332 Mammographic heterogeneous density, left breast; N60.02 Solitary cyst of left breast
CPT/HCPCS: 76642; 77065; G0279

== ENCOUNTER → 2025-06-09 08:50 | Outpatient (CLI) | payer MEDICARE, OTHER, SELFPAY ==
[2025-06-09 09:35] LABS: Add Manual Diff / Slide Review NO; Hematocrit 44.0 % (36-46); Hemoglobin 15.2 g/dL (12.0-16.0); Lymphocytes Absolute Auto 1600 /uL (1100-4500); Mean Corpuscular HGB Conc 34.6 % (30-36); Mean Corpuscular Hemoglobin 31.4 PG (26-34); Mean Corpuscular Volume 90.9 fL (80-100); Platelet Count 175 X10^3/uL (150-400)
[2025-06-09 09:57] LABS: Alanine Aminotransferase 22 IU/L (<35); Albumin 4.5 g/dL (3.5-5.0); Albumin Globulin Ratio 1.6 (1.0-2.8); Alkaline Phosphatase 55 U/L (38-126); Blood Urea Nitrogen 17 mg/dL (7-17); Calcium 8.8 mg/dL (8.4-10.2); Carbon Dioxide 28 mmol/L (22-32); Chloride 106 mmol/L (98-107); Cholesterol 160 mg/dL (140-199); Estimated Glomerular Filt Rate > 60 mL/min (>60); Globulin 2.9 g/dL (1.7-4.1); Glucose 98 mg/dL (70-99); HDL Cholesterol 45 mg/dL (40-60); HEMOLYSIS < 15 (0-50); Potassium 4.3 mmol/L (3.4-5.1); Sodium 141 mmol/L (137-145); Total Protein 7.4 g/dL (6.3-8.2); Triglycerides 116 mg/dL (35-150)
[2025-06-09 10:35] LABS: TSH w/ Reflex to FT4 2.08 uIU/mL (0.47-4.68)
== END ==
PROVIDERS: PCP Family Medicine; Referring Provider Family Medicine; Visit Provider Family Medicine
DX: Z00.00 Encounter for general adult medical examination without abnormal findings (principal); E78.2 Mixed hyperlipidemia; I49.9 Cardiac arrhythmia, unspecified
CPT/HCPCS: 36415; 80053; 80061; 82172; 84443; 85025

== ENCOUNTER → 2025-06-14 13:47 | Outpatient (CLI) | payer MEDICARE, OTHER, SELFPAY ==
--- NOTE | 2025-06-14 13:48 | DI.RAD.S_ITS ---
PROCEDURE: XR FOOT LT MIN 3V INDICATIONS: left 3rd toe injury TECHNIQUE: 3 views of the foot were acquired. COMPARISON: None. FINDINGS: Bones: No fractures or dislocations. No suspicious bony lesions. Soft tissues: No tibiotalar joint effusion. Achilles tendon appears normal. IMPRESSION: No acute bony abnormality. Dictated by: Bay Escobedo M.D. on 06/15/2025 at 12:17 Approved by: Bay Escobedo M.D. on 06/15/2025 at 12:17
== END ==
PROVIDERS: PCP Family Medicine; Referring Provider Family Medicine; Visit Provider Family Medicine
DX: M79.675 Pain in left toe(s) (principal)
CPT/HCPCS: 73630